=== PATIENT | male | born 1950 | race Caucasian/White ===

== ENCOUNTER 2024-04-28 17:02 | Inpatient (IN) | payer MEDICARE, SELFPAY ==
[2024-04-27] VITALS (10 sets, daily range): BP systolic 122–150; BP diastolic 71–88; BMI 40.4
--- NOTE | 2024-04-27 10:44 | ED.GENMED ---
History of Present Illness
General
Chief Complaint: Breathing Problem
Source: patient
Time Seen by Provider: 04/27/24 10:32
History of Present Illness
History of Present Illness:
73yoM with a history of hypertension, hyperlipidemia, ASUNCION, and obesity presenting with his for evaluation of shortness of breath. Patient has been having issues with shortness of breath for several years. Symptoms have been worsening over the
past 2 months. He reports significant exertional dyspnea to the point where he is unable to walk 50 yards without symptoms. He also reports bilateral shoulder pain with activity. The pain intermittently radiates throughout his chest. If he walks 100
yards, he will start vomiting due to the severity of his symptoms. He has several chairs placed throughout the home due to his symptoms so he can rest as needed. He follows with Dr. Lomax, cardiology. He reports having a stress test several years
ago which was normal. He called his PCP today and he was advised to go to the ED for evaluation.
Phy Exam
General Physical Exam
General Presentation: well appearing
General age: appears stated age
General Skin: warm and dry
General Habitus: normal
General Mental: alert
Cardiovascular Exam
Cardiovascular Exam: regular rate/rhythm and systolic murmur
Pulmonary Exam
Pulmonary Exam: lungs clear, no respiratory distress, no crackles and no wheezing
Musculoskeletal Exam
Musculoskeletal Exam: other (Non-pitting edema present to bilateral feet)
Skin Exam
Skin Exam: normal color and warm/dry
Psychiatric Exam
Psychiatric Exam: normal mood/affect
Scores
Heart Failure Risk
Heart Failure Risk Score: Not Applicable
Course
Orders/Labs/Results
Orders:
Orders
04/27/24 Breakfast
Sodium, 2 Gram
At Your Request: Limited Participation
Low Sodium: Cholesterol Lowering
04/27/24 10:14
Electrocardiogram (*1) Urgent
Reason for Study: Shortness of Breath
EKG- Treatment ONCE
04/27/24 10:43
Cardiac Monitoring- Treatment ONCE
04/27/24 10:44
CR Chest - 2 Views Urgent
Comment:
Reason For Exam: SOB
04/27/24 11:16
Complete Blood Count/With Diff Urgent
Comprehensive Metabolic Panel Urgent
NT-proBNP Urgent
TSH Reflex To Free T4 Urgent
Comment: ADD ON
Troponin I Urgent
04/27/24 15:52
Echo 2D MMode Color/Doppler Urgent
Reason for Study: chest pain, GROSS, mild
Cardiology Consult: Brennen Mccoy
04/27/24 15:53
Admit/Transfer Patient As Directed
Co-Sign Provider:
Level of Care: Observation services
Assign to:: Telemetry
Physician / Group: Cassius
Diagnosis: Shortness of Breath
Reason for Telemetry: Chest Pain syndromes
Date to Stop Telemetry: 04/29/24
Time to Stop Telemetry: 11:00
04/27/24 15:54
Code Status As Directed
Resuscitation Status: Full Code
PRN Pain Medication Management As Directed
May give lesser potent ordered pain med per pt: Yes
preference::
Protocol:: Medication orders for pain may be administered in a
manner that supports deferring to patient preference
when the pt is:
- Requesting an ordered lesser potent pain medication.
Least to most potent pain medications are defined
as: acetaminophen < NSAID < tramadol < opioids
(morphine, oxycodone, hydromorphone).
- Requesting a lesser dose of the same medication IF
ORDERED.
- Requesting a less intrusive route of administration
if both routes are prescribed by the provider (PO <
IV).
04/27/24 16:07
Add On- LAB Routine
Tests Added?: TSH w/Reflex
04/27/24 17:22
Acetaminophen [Tylenol] 650 mg PO Q4HPRN PRN
04/27/24 17:22
CARDIOLOGY CONSULT Routine
Consulting Provider: Brennen Mccoy
Was physician already notified: Yes
Activity As Directed
Activity Level: Out of Bed-Early Mobility
With Assistance
I&O [Intake/ Output] As Directed
Frequency: q12h
Vital Signs As Directed
Frequency: Per unit guidelines
Weight As Directed
Frequency: Daily
Pulse Ox/exercise [RESP] Routine
Quantity: 1
Pt Eval And Treat Routine
Activity Level: Out of Bed-Early Mobility
DX Deep Vein Thrombosis Video Routine
04/27/24 18:00
Enoxaparin Sodium [Lovenox] 40 mg SC QPM
04/28/24 Breakfast
NPO
Allow oral meds: Yes
Allow clear liquids: 4hrs prior to procedure
NPO with Ice Chips: Yes
Comment: may have unrestricted clear liquid up to 4 hrs prior to scheduled procedure
04/29/24 11:00
DC Protocol for Telemetry ONCE
Abnormal Lab Results
04/27/24
11:16
MCH 31.2 H pg
(27.0-31.0)
Absolute Monos (auto) 0.7 H 10^3/uL
(0.1-0.6)
Monocytes % 10.2 H %
(1.7-9.3)
Glucose 111 H mg/dl
(70-99)
04/27/24 11:16
04/27/24 11:16
Vital Signs
Initial and Last Documented VS:
Initial Vital Signs
Temp Pulse Resp BP Pulse Ox
99.0 F 76 16 147/71 98
04/27/24 10:22 04/27/24 10:22 04/27/24 10:22 04/27/24 10:22 04/27/24 10:22
Last Documented Vital Signs
Temp Pulse Resp BP Pulse Ox
99.0 F 56 27 138/83 97
04/27/24 10:22 04/27/24 15:45 04/27/24 10:45 04/27/24 15:00 04/27/24 15:45
MDM/Problems Addressed
Differential Diagnosis Includes:
73yoM here with exertional dyspnea. Ongoing for quite some time. Unable to walk around his home without significant symptoms. No symptoms at rest. He is afebrile and hemodynamically stable. He is well appearing in no distress. There is non-pitting
edema to his lower leg/feet on exam. Differential diagnosis includes but is not limited to: stable angina, unstable angina, CHF
Initial ED plan: Place on monitoring engineer. Check cardiac labs, EKG, and CXR.
*EKG
Interpreted by ED Provider?: Yes
EKG Intrepretation Date: 04/27/24
Heart Rate: 71
Rate: normal
Rhythm: sinus
Sutton: left axis deviation
QRS Pattern: right bundle branch block
Ischemia: no ischemia
*Critical Care Note
Total Time (30-74mins, 75-104mins- exclusive of procedures): Not Applicable
Update Note
Update Note:
Labs overall unremarkable. EKG shows NSR without ischemic changes and troponin WNL. CXR is clear. Cardiology consulted and he was evaluated at bedside by cardiology team. Plan for cardiac catheterization tomorrow. He was admitted for further
evaluation.
ED Attending Note
-
Portions of this chart may have been created with voice recognition software.� Occasional wrong word or��sound alike� substitutions may have occurred due to the inherent limitations of voice recognition software.
Discharge Plan
Departure
Patient Disposition: Admit
Date of Disposition: 04/27/24
Time of Disposition: 15:35
Presentation/result/management discussed w/ accepting MD/DO: Hospitalist
Discharge Problem:
Exertional dyspnea
Interventions
Interventions:
*Risk Screen - Suicide Last Done: 04/27/24 11:04
*General Assessment Last Done: 04/27/24 11:04
*Neglect/Abuse Screening Last Done: 04/27/24 11:04
ED- Fall Risk Assessment Last Done: 04/27/24 11:04
*ED COVID-19 Vaccine History Last Done: 04/27/24 11:04
ED- Cardiac Assessment Last Done: 04/27/24 11:04
ED- Pulmonary Assessment Last Done: 04/27/24 11:04
Discharge Date and Time
Discharge Date/Time: 04/27/24 17:15
[2024-04-27 11:29] LABS: % Basophils 0.9 % (0-2); % Immature Granulocytes 0.3 % (0-0.5); % Lymphocytes 30.7 % (20.5-51.1); % Monocytes 10.2 % (1.7-9.3); % Neutrophils 55.9 % (42.2-75.2); Absolute Basophils 0.1 10^3/uL (0-0.2); Absolute Eosinophils 0.1 10^3/uL (0-0.7); Absolute Monocytes 0.7 10^3/uL (0.1-0.6); Absolute Neutrophils 3.6 10^3/uL (1.4-6.5); Hematocrit 43.3 % (39.0-52.0); Mean Corp Hgb Conc. 34.6 g/dL (33.0-37.0); Mean Corpuscular Hgb 31.2 pg (27.0-31.0); Mean Platelet Volume 10.3 fL (7.4-10.4); Nucleated Red Blood Cells % 0 % (-); Platelet Count 213 10^3/uL (130-400); Red Blood Cell Count 4.81 10^6/uL (4.70-6.10); Red Cell Dist. Width 13.3 % (11.5-14.5); White Blood Cell Count 6.4 10^3/uL (4.8-10.8)
[2024-04-27 11:50] LABS: ALT (SGPT) 27 U/L (0-50); AST (SGOT) 31 U/L (17-59); Albumin 4.2 g/dl (3.5-5.0); Alkaline Phosphatase 47 U/L (38-126); Blood Urea Nitrogen 14 mg/dl (9-20); Calcium 9.4 mg/dl (8.4-10.2); Carbon Dioxide 28 mmol/L (22-30); Chloride 103 mmol/L (98-107); Estimated Creatinine Clearance 112 ml/min; Glucose 111 mg/dl (70-99); Potassium 4.8 mmol/L (3.5-5.1); Sodium 139 mmol/L (135-145); Total Bilirubin 0.8 mg/dl (0.2-1.3); Total Protein 6.9 g/dl (6.3-8.2); eGFR > 60.00
[2024-04-27 11:53] LABS: NT-proBNP 75.6 pg/ml; Troponin I < 0.012 ng/ml
--- NOTE | 2024-04-27 14:51 | CON.CAR ---
Addendum entered and electronically signed by Brennen Mccoy MD 04/27/24 16:25:
I saw and examined the patient.
The MEDICAID BILLING SPECIALIST or PA's note was reviewed and I agree with the note.
Comment: General: Well developed, well nourished in NAD.
Neck: Supple, no JVD, HJR, carotids +2 B/L, no bruits bilaterally.
Heart: Non displaced PMI, RRR, no murmurs, No S3, S4, no rubs.
Lungs: Clear to auscultation bilaterally, no wheeze, rhonchi, rubs bilaterally,
normal expiratory phase.
Abdomen: Normal bowel sounds, soft, non-tender, non-distended.
Extremities: No clubbing, cyanosis or edema bilaterally.
Neuro: Grossly nonfocal, awake, alert and oriented x3
Naveen has a history of hypercholesterolemia, mild aortic stenosis, morbid obesity, chronic dyspnea on exertion. He has been seen by cardiology with normal stress test and echocardiogram in September 2022. He has been seen by pulmonary and
recommended to see cardiology. He has had progressive dyspnea on exertion. He also has had discomfort under his armpits on both sides related to shortness of breath. He has had progressive symptoms and presented to emergency room for further
evaluation.
Concern regarding possible unstable angina with worsening dyspnea on exertion and discomfort under both armpits. He also had severe nausea during one of the episodes. Recommend he be admitted and undergo catheterization on 04/28 if echocardiogram
is unchanged. Of note proBNP was normal. He remains obese but his weight has been stable..
Original Note:
Consultation
Consultation Request
Date/Time Consultation Requested: 04/27/24
Date/Time Consultation Performed: 04/27/24
Requesting Provider: Rashawn DICK in ER
Performing Provider: Dr. Mccoy
Reason for Consultation: Chest pain and GROSS
Medical History
-
History of Present Illness:
Patient came to [facility] today with chest pain and GROSS and cardiology has been consulted. Patient last saw Dr. Lomax in the office 12/07/22 and complained of chest pain and GROSS, but had previously completed a Lexiscan mibi 09/17/22 that showed a small area
of mildly decreased perfusion that was fixed in the mid inferior and apical inferior and partially improved with prone imaging. When patient complained of recurrent symptoms at the 12/07/22 office visit he was recommended PCSK9 inhibitor for untreated
hyperlipidemia and a coronary calcium score, but he declined and did not come back to the office. Patient says that since the beginning of the summer he has had a rapid deterioration in his activity levels due to exertional intolerance. He describes
chest pain from shoulder to shoulder and GROSS when he walks more than 10 yards. He says that if he tries to complete too much activity that he vomits. No resting chest pain or GROSS. No substernal pain and no radiation to his neck or jaw. He has
experience similar symptoms for more than 1 year, but happening at lower levels of activity now. Patient with chronic LE edema that has been present for months. He says edema is there even in the morning when he wakes up. He also complains of
bloating and at one point had lost 10 lbs, but then gained the weight back quickly and has not gained any additional weight. He says that despite this he thinks his pants are looser at the waist than before. He has HTN that is managed by Nephrology
using Cardura, eplerenone and losartan. His resting BP is 150/88 in the ER and he has similar readings at home. He also has a h/o mild by last echo almost 2 years ago. Patient says that he has described his symptoms to family members who are
physicians and also to friends and they all feel that he has CAD and that he needs a stent so this is the reason he came to [facility] today and not months ago.
PMH:
HTN
Untreated hyperlipidemia due to statin intolerance and patient refusal of PCSK9 inhibitor meds
Mild by echo 06/2022
Morbid obese
Past Medical History
Past Medical History: Other (in HPI)
Past Surgical History: None
Social History
Tobacco: Former Smoker
Alcohol: None
Drug: None
Personal:
Living: With Family
Employment: Retired
Family History
Family History: CAD and Hypertension
Allergies / Home Medications
Allergy/AdvReac Type Severity Reaction Status Date / Time
.statins Allergy Unknown Uncoded 04/27/24 10:25
Review of Systems
-
History Source: Patient and Family ( sitting bedside and helping with HPI)
All other systems: Negative unless noted
Physical Exam
Vital Signs
Temp Pulse Resp BP Pulse Ox
99.0 F 57 27 137/74 95
04/27/24 10:22 04/27/24 14:15 04/27/24 10:45 04/27/24 14:00 04/27/24 14:15
GEN: NAD. AAOx3
HEENT: EOMI, MMM
LUNGS: CTA B/L without wheezes/rales
CV: Reg, S1/S2, 2/6 syst LSB
ABD: soft, BS+, NT. Distended
EXT: +1 pitting B/L LE edema. No clubbing, cyanosis or lesions B/L
NEURO: Gross non-focal
SKIN: Warm, dry and pink. No rash
Lab Results
04/27/24 11:16
04/27/24 11:16
Troponin I < 0.012 ng/ml 04/27/24 11:16
Gae-Y-Jihwwiadgey Pept 75.6 pg/ml 04/27/24 11:16
Impression / Plan
-
PCP: Dr. Guy
Cardiology: Dr. CARLITO Lomax, last seen 12/2022
Nephrology: Dr. Lees
Impression:
Chest pain
GROSS
HTN
Untreated hyperlipidemia due to statin intolerance and patient refusal of PCSK9 inhibitor meds
Mild by echo 06/2022
Morbid obese
Echo 06/22/22: EF 70-75%, mild conc LVH, mild peak/mean 20/10 mmHg and NICKY 2.0 cm sq
Plan:
-Patient came to [facility] today with chest pain and GROSS and cardiology has been consulted. Patient last saw Dr. Lomax in the office 12/07/22 and complained of chest pain and GROSS, but had previously completed a Lexiscan mibi 09/17/22 that showed a small
area of mildly decreased perfusion that was fixed in the mid inferior and apical inferior and partially improved with prone imaging. When patient complained of recurrent symptoms at the 12/07/22 office visit he was recommended PCSK9 inhibitor for
untreated hyperlipidemia and a coronary calcium score, but he declined and did not come back to the office. Patient says that since the beginning of the summer he has had a rapid deterioration in his activity levels due to exertional intolerance. He
describes chest pain from shoulder to shoulder and GROSS when he walks more than 10 yards. He says that if he tries to complete too much activity that he vomits. No resting chest pain or GROSS. No substernal pain and no radiation to his neck or jaw. He
has experience similar symptoms for more than 1 year, but happening at lower levels of activity now. Patient with chronic LE edema that has been present for months. He says edema is there even in the morning when he wakes up. He also complains of
bloating and at one point had lost 10 lbs, but then gained the weight back quickly and has not gained any additional weight. He says that despite this he thinks his pants are looser at the waist than before. He has HTN that is managed by Nephrology
using Cardura, eplerenone and losartan. His resting BP is 150/88 in the ER and he has similar readings at home. He also has a h/o mild by last echo almost 2 years ago. Patient says that he has described his symptoms to family members who are
physicians and also to friends and they all feel that he has CAD and that he needs a stent so this is the reason he came to [facility] today and not months ago.
-Despite months of exertional chest pain his ECG is unchanged and Troponin is undetectable.
-ECG reviewed by me with cRBBB and no acute ischemic changes.
-Check 2nd Troponin and ECG
-Check echo to re-evaluate .
-Given ongoing exertional chest pain and GROSS would recommend cardiac cath. Reviewed cardiac cath with patient and possible outcomes.
-Follow BP and patient might need titration of meds for tighter control.
-Check CVE in AM. Patient is intolerant to Fenofibrate due to joint pain, atorvastatin caused him to have joint pain and feel sluggish, simvastatin caused joint pain and fatigue. Patient refused to consider PCSK9 inhibitors before, but might
reconsider pending above.
--- NOTE | 2024-04-27 15:47 | HPS.HSE ---
Addendum entered and electronically signed by Malik Hammonds MD 04/28/24 08:28:
I saw and examined the patient.
The BATTERY INSPECTOR's note was reviewed and I agree with the note.
Comment:
late addendum. Pt was seen and examined on 04/27/24. Please see update note.
Original Note:
Family Physician
-
Family Physician: Dena Guy
Chief Complaint
-
Shortness of Breath
History of Present Illness
Pt is a 73 yo M with PMH HTN, HLD, asthma, ASUNCION, and obesity who presents with worsening shortness of breath. Pt states he has had ongoing shortness of breath for years which has worsened this summer (in the past 2-12 months) to the point where he
can no longer walk more than 30 yards. Pt admits to exertional dyspnea accompanied by bilateral armpit and chest pain that is relieved with rest. He states is fully dependent on cane assistance for ambulation and has chairs scattered throughout his
yard so he can rest. His reports significantly decreased activity. He also admits to increasing lethargy with a need to sleep multiple times throughout the day and unknown amount of weight gain. He denies fever, headache, dizziness, vision changes,
palpitations, cough, and abdominal pain. He denies history of AL, arrhythmias, and DVT/PE.
Medical History
Past Medical History
Past Medical History: Reports Other
Additional Past Medical History:
Essential Hypertension
Hyperlipidemia
Cough Variant Asthma
Obstructive Sleep Apnea
Morbid Obesity due to Excess Calories
Past Surgical History: Reports None
Social History
Tobacco: Former Smoker (Quit at age 20)
Alcohol: Daily (Wine most nights)
Family History
Family History: Not pertinent
Allergies / Home Medications
Allergies reflects when Allergies were last updated in [employer].
Home Medications with original date entered in [employer]
Allergy/Medication List:
Allergies
Allergy/AdvReac Type Severity Reaction Status Date / Time
.statins Allergy Unknown Uncoded 04/27/24 10:25
Home Medications
ascorbic acid (vitamin C) 500 mg tablet (Vitamin C) 500 mg PO DAILY 04/27/24
aspirin 325 mg tablet 325 mg PO DAILY 04/27/24
bimatoprost 0.01 % eye drops (Lumigan) 1 drp BOTH EYES HS 04/27/24
cholecalciferol (vitamin D3) 50 mcg (2,000 unit) tablet (Vitamin D3) 100 mcg PO DAILY 04/27/24
cyanocobalamin (vitamin B-12) 500 mcg tablet 500 mcg PO DAILY 04/27/24
doxazosin 4 mg tablet 4 mg PO HS 04/27/24
eplerenone 25 mg tablet 75 mg PO HS 04/27/24
ezetimibe 10 mg tablet 10 mg PO DAILY 04/27/24
fluticasone furoate 200 mcg-vilanterol 25 mcg/dose inhalation powder (Breo Ellipta) 1 inh inhalation R DAILY 04/27/24
loratadine 10 mg tablet (Claritin) 10 mg PO HS 04/27/24
losartan 25 mg tablet 25 mg PO HS 04/27/24
montelukast 10 mg tablet 10 mg PO HS 04/27/24
ljhqyiaw-zpq-adsbd acid 0.4 mg-lycopene 300 mcg-lutein 250 mcg tablet (Centrum Silver) 1 tab PO DAILY 04/27/24
saw palmetto 450 mg capsule 900 mg PO DAILY 04/27/24
vitamin B complex 1 tab PO DAILY 04/27/24
zinc sulfate 50 mg zinc (220 mg) tablet 50 mg PO DAILY 04/27/24
Review of Systems
-
A 12 point ROS was completed and negative except as noted: Yes
Constitutional: Denies Fever or Chills
Respiratory: Reports See HPI and Cough
Cardiac: Reports See HPI
Physical Exam
Vital Signs
Vital Signs
Temp Pulse Resp BP Pulse Ox
99.0 F 58 27 138/83 96
04/27/24 10:22 04/27/24 15:15 04/27/24 10:45 04/27/24 15:00 04/27/24 15:15
Physical Exam
General: Comfortable and Conversant
HEENT: Anicteric and Moist mucous membranes
Respiratory: Clear and Non Labored Respirations
Cardiac: S1/S2 and Regular Rhythm
GI: Soft and Non Tender
Rectal: Deferred by Provider
Musculoskeletal: No Clubbing, No Cyanosis and Other (+1 pitting edema bilateral lower extremity)
Skin: Warm and Dry
Neuro: Awake, Alert, Oriented and Nonfocal/grossly intact
Psych: Calm
Laboratory Results
-
04/27/24 11:16
04/27/24 11:16
Laboratory Results
Total Bilirubin 0.8 mg/dl (0.2-1.3) 04/27/24 11:16
AST 31 U/L (17-59) 04/27/24 11:16
ALT 27 U/L (0-50) 04/27/24 11:16
Alkaline Phosphatase 47 U/L (38-126) 04/27/24 11:16
Troponin I < 0.012 ng/ml 04/27/24 11:16
Data Reviewed
-
Medical Tests (Nuc Med, Echo, EKG etc): Report Reviewed by me
Lab Data: Labs Reviewed by me
Impression/Plan
-
Dyspnea on Exertion, possible Angina
-Consult Cardiology
-Check Echocardiogram
-Plan for Cardiac Cath in AM
-Continue aspirin
Essential Hypertension
-Continue Losartan, Doxazosin, and Eplerenone
Hyperlipidemia
-Patient is intolerant to statins
-Continue ezetimibe
Cough Variant Asthma, no acute exacerbation
-Continue Breo
Obstructive Sleep Apnea
-Patient does not use a CPAP
Morbid Obesity due to Excess Calories
-Affects all aspects of care
-Encourage weight loss
DVT proph: Mikex
Code Status: Full Code
--- NOTE | 2024-04-27 16:28 | W.PN.UPDATE ---
Update Note
Progress Note Update
I saw and examined the patient.
The FRONT OFFICE JAVA DEVELOPER's note was reviewed and I agree with the note.
Please see H&P for additional details.
Comment:
73-year-old male past medical history of primary hypertension is presenting from home with chest pain on exertion. States his chest pain has been ongoing for quite some period of time. Patient follows up with cardiology as outpatient. Called his
primary doctor who recommended patient come to the hospital. States of chest pain with exertion only. Has been ongoing and got concerned. Denies any chest pain at rest. Had episode of nausea. Chest pain resolved with rest.
Gen: morbidly obese, comfortable
hent neck is supple,
cards s1 s2 rrr. pito
pulm cta bl anterior
abd soft non distended
neuro aox 3
psych pleasant
Impression
Ivana with concern for severe coronary artery disease
Primary hypertension
Morbid obesity due to excess calories
Suspected hyperlipidemia
asthma
Plan
Check echocardiogram-about to undergo at bedside
Plan for cardiac cath in the morning. N.p.o. past midnight.
Continue and confirm home meds
Trend troponin.
DVT ppx
I spent a total of 77 minutes with the patient or on the floor. More than 50% of this time involved counseling and coordination of care.
[2024-04-27 17:21] LABS: TSH Reflex To Free T4 1.04 uIU/ml (0.47-4.68)
[2024-04-27] MEDS: LOVENOX 40 MG SC (17:48)
--- NOTE | 2024-04-27 20:44 | PTCARENOTE ---
Received pt from day shift RN. Pt AAOx3, VSS. Pt ambulating in room to and from bathroom, denying any chest pain. Updated patient and on plan of care.
[2024-04-28] VITALS (16 sets, daily range): BP systolic 123–158; BP diastolic 67–105; BMI 39.0
[2024-04-28 09:24] LABS: Troponin I 0.028 ng/ml
[2024-04-28 09:48] LABS: D-Dimer 0.75 ug/mlFEU (0.00-0.50)
[2024-04-28 10:04] LABS: Blood Urea Nitrogen 13 mg/dl (9-20); Calcium 9.5 mg/dl (8.4-10.2); Carbon Dioxide 30 mmol/L (22-30); Chloride 102 mmol/L (98-107); Estimated Creatinine Clearance 110 ml/min; Glucose 93 mg/dl (70-99); HDL Cholesterol 41 mg/dl; LDL Cholesterol, Calculated 159 mg/dl; Potassium 4.5 mmol/L (3.5-5.1); Sodium 140 mmol/L (135-145); Total Cholesterol 250 mg/dl (50-199); Triglyceride 252 mg/dl (10-149); Very Low Density Lipoprotein 50 mg/dl (0-30); eGFR > 60.00
[2024-04-28 11:54] LABS: ACT-LR - POC 224 Seconds (116-155)
--- NOTE | 2024-04-28 12:06 | W.PN.HOSP.TC ---
Today's Communication/Plan
-
Cardiac cath
Cardiology rec
Continue with aspirin
Monitor blood pressure
Assessment / Plan
Assessment / Plan
Dyspnea on Exertion likely secondary to angina rule out significant CAD
-Consult Cardiology
-Echo with EF of 65 to 70%. Moderate LVH. Mild aortic stenosis. No significant change when compared to 06/23 echo.
-Continue aspirin
-Plan for tentative cardiac cath later today.
-D-dimer age-appropriate.
Essential Hypertension
-Continue Losartan, Doxazosin, and Eplerenone
Hyperlipidemia
-Patient is intolerant to statins
-Continue ezetimibe. Significantly elevated triglycerides and LDL.
Cough Variant Asthma, no acute exacerbation
-Continue Breo
Obstructive Sleep Apnea
-Patient does not use a CPAP
Morbid Obesity due to Excess Calories
-Affects all aspects of care
-Encourage weight loss
DVT proph: Lovenox
Code Status: Full Code
Anticipated Discharge: Within 24 hours
Subjective/Interval History
-
Date of Service: April 28, 2024
denies chest pain at rest
Objective Data
-
Labs:
Laboratory Results
04/28/24
07:51
Sodium 140
Potassium 4.5
Chloride 102
Carbon Dioxide 30
BUN 13
Creatinine 0.8
Glucose 93
Calcium 9.5
Vital Signs:
Vital Signs
Temp Pulse Resp BP Pulse Ox
98.1 F 60 18 123/78 96
04/28/24 07:00 04/28/24 07:00 04/28/24 07:00 04/28/24 07:00 04/28/24 07:00
I&O
04/27/24 04/28/24 04/29/24
06:59 06:59 06:59
Intake Total 1250 / 1250
Balance 1250 / 1250
Physical Exam
-
General: Well Developed and Morbidly Obese
HEENT: Normocephalic, Atraumatic and Moist Mucous Membranes
Respiratory: Clear to Auscultation
Cardiac: Regular Rhythm and S1/S2; Negative Murmur, Rub or Gallop
GI: Soft, Nontender, Nondistended and Normal Bowel Sounds; Negative Organomegaly
Rectal: Deferred by Provider
Musculoskeletal: No Clubbing, No Cyanosis and No Edema
Skin: Negative Rash
Neuro: Awake, AO x 3, No Motor Deficits and Nonfocal/Grossly Intact
[2024-04-28] MEDS: ZETIA PO (12:45)
--- NOTE | 2024-04-28 13:03 | ITS.CL.CATH ---
[employer] - Catheterization
Cardiac Catheterization
Procedure Report:
LEFT HEART CATHETERIZATION
Date of Procedure: April 28, 2024
Referring: Dr. Brennen Mccoy
PROCEDURES:
1. Left heart catheterization with coronary and single-plane left ventriculography
2. Hemodynamic assessment of LAD and diagonal with Purlear Omni wire with the iFR measuring just below the ischemic threshold at 0.87, 0.89, 0.89
INDICATION: This is a 73-year-old gentleman with a past medical history notable for untreated mixed hyperlipidemia secondary to intolerance to 'all statin drugs' and desire to avoid PCSK9 inhibitor injections. Additional history includes mild
aortic stenosis, morbid obesity, and chronic dyspnea on exertion. He was last seen by cardiology with a unremarkable stress test in September 2022. His dyspnea on exertion has worsened and he developed chest tightness with shortness of breath and
severe nausea. His troponin measures 0.012 and 0.028 ng/mL. He is now referred for coronary angiography.
ACCESS: Right radial artery, 6 Mauritanian sheath
HEMODYNAMICS : (mmHg)
AO (s/d) : 135/81
LV (s/d) : 136/18
LVEDP : 28
CORONARY FINDINGS
DOMINANCE: Right
LEFT MAIN: Tubular 30%
LEFT ANTERIOR DESCENDING: The LAD arises normally from the left main and is moderately calcified over its course. There is a 40% proximal LAD stenosis. The first diagonal branch arises from the proximal LAD and has diffuse but noncritical luminal
irregularities with the IFR in a diagonal branch measuring above the ischemic threshold at 0.94, 0.94, and 0.94. The mid LAD beyond the diagonal branch has serial 30% stenoses. The IFR in the LAD measures at/below the ischemic threshold at 0.87,
0.89, and 0.89.
CIRCUMFLEX: Ostial 99% circumflex stenosis with faint antegrade flow. There are well-developed right to left collaterals filling the terminal circumflex.
RIGHT CORONARY ARTERY: The right coronary artery is a moderately calcified dominant vessel with a 50% distal stenosis. The PDA is patent and the posterolateral branch is small.
VENTRICULOGRAPHY: Left ventriculography is performed in an LUCAS projection. The digital single-plane left ventricular ejection fraction is estimated at 60% and no regional wall motion abnormalities are noted
HEMODYNAMIC ASSESSMENT OF THE LAD AND DIAGONAL WITH A VOLCANO OMNI WIRE: The origin of the left main was cannulated with a 6 Fr JL 4 guide catheter. Intravenous heparin was administered and the ACT was followed during the procedure. Two hundred
micrograms of intracoronary nitroglycerin was given through the guide catheter. A Purlear Omni wire was advanced to the guide catheter tip while the guide was disengaged from the left main. The Omni wire was normalized to the guide catheter
pressure. The JL 4 guide catheter engaged the origin of the left main and the Omni wire was then carefully advanced to the apical LAD where the IFR serially measured at/below the ischemic threshold at 0.87, 0.89, and 0.89. The Omni wire was
withdrawn to the guide catheter and redirected to the diagonal branch where the IFR serially measured above the ischemic threshold at 0.94, 0.94, and 0.94 while the guide catheter was disengaged from the left main. The Pd/Pa measured 1.01 at the
guide catheter confirming no significant baseline drift
RADIATION SUMMARY: Fluoro Time (min): 6.9, Dose (mGy): 635, DAP (Gy.cm2) : 44.4
Closure Device: TR band
CONCLUSIONS
1. Chronic occlusion of the distal circumflex with distal vessel filling via well-developed right to left collaterals. Ostial circumflex stenosis is not favorable for percutaneous intervention. The LAD has moderate diffuse atherosclerosis but the
iFR measures just at/below the ischemic threshold at 0.87, 0.89, and 0.89.
2. Preserved left ventricular systolic function
RECOMMENDATIONS
1. Will consult CT surgery to discuss revascularization treatment options. Percutaneous treatment options are somewhat limited given the true ostial nature of stenosis at the origin of the circumflex and well developed egljo-yt-ddov collaterals to
the distal circumflex from the RCA. There is diffuse atherosclerosis in the LAD with the iFR measuring just below the ischemic threshold and angiographically moderate coronary disease in the distal RCA.
Copy to: Dr. Naveen Lomax
--- NOTE | 2024-04-28 14:10 | CONSULT.CT ---
Addendum entered and electronically signed by Kenney Martinez MD 04/28/24 17:02:
CARDIAC SURGERY OPERATIVE NOTE:
It was my pleasure to meet with Mr. Naveen Villeda at bedside this afternoon. His and daughter were present during our discussions. I reviewed all of his pertinent clinical data and cardiac catheterization imaging as well as his medical history.
I would recommend surgical coronary revascularization with planned CABG x 3 with ENRIQUEZ to LAD, greater saphenous vein to OM, and greater saphenous vein to PDA. He has concurrent mild aortic stenosis with peak/mean gradients of 16/10 mmHg
respectively. His aortic valve does not require intervention at the time of his CABG procedure, but will require sequential monitoring. I had a greater than 60-minute discussion with this patient and his family we reviewed his coronary pathology,
the proposed operative mentions, the associated operative risks (including, but not limited to, , stroke, OK, arrhythmia, pneumonia, LEILA/F, bleeding, and infection), the expected hospital postprocedural course, and expected outpatient recovery.
All questions were answered to the best my abilities. The patient is agreeable to proceed.
Plan to proceed to the operating room tomorrow with a plan in the room time of 8:30 AM
Please call with any questions or concerns.
Kenney Martinez MD
[phone]
Original Note:
Consultation
-
Date/Time Consultation Requested: 04/28/2024
Date/Time Consultation Performed: 04/28/2024
Requesting Provider: Dr Mccoy
Performing Provider: Spenser chapa
Reason for Consultation: CABG
Patient History
Physicians
Outpatient Systems Technologist: Dr. CARLITO Lomax
History of Present Illness
Patient is a 73-year-old male with past medical history of hypertension, hyperlipidemia, asthma, obstructive sleep apnea and obesity. Patient reports ongoing shortness of breath which has worsened this past summer. He now can no longer walk more
than 30 yards. He admits to exertional dyspnea accompanied by bilateral armpit and chest pain that is relieved with rest. His activity level is now significantly decreased. He also admits to weight gain along with the need to sleep multiple times
during the day because of lethargy. He also admits to bilateral ankle swelling. He presented to [facility] ED for evaluation. Echocardiogram shows left ventricle with ejection fraction of 65 to 70%. There was mild aortic stenosis with
peak and mean gradients of 16 and 10. Trace mitral regurgitation.
Cardiac catheterization was performed today 04/28/2024 which showed critical coronary artery disease. Cardiothoracic surgery was consulted for CABG evaluation.
Plan to order diagnostic testing and all studies will be reviewed by attending cardiothoracic surgeon. Surgical plan and timing will be discussed with patient tomorrow.
Past Medical History
Past medical history: Unstable angina
Hypertension
Hyperlipidemia-patient cannot tolerate statins
Obstructive sleep apnea-patient does not use CPAP
Obesity-patient has had a recent weight gain
Past Surgical History
Past surgical history: Closed reduction of ankle fracture
Dental History
Denies any current dental issues, receives routine dental care
Family History
Mother: at Age and Cause of (Mother at age 73 after suffering a stroke at age 66 also had hypertension)
Father: at Age and Cause of (Father had Parkinson's he from sepsis after receiving a hip replacement)
Family Medical History: Hypertension
Social History
Alcohol: Daily (Drinks beer or wine daily)
Drug: None
Tobacco: Former Smoker (Quit smoking at 20 years of age)
Personal:
Living: With Spouse
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
Allergies
Allergy/AdvReac Type Severity Reaction Status Date / Time
Dymnkja-ANF-SsB Reductase Allergy Unknown Verified 04/27/24 18:09
Inhibitor
Home Medications
�Medication �Instructions �Recorded �Confirmed �Type
ascorbic acid (vitamin C) 500 mg 500 mg PO DAILY Supplement 04/27/24 04/27/24 History
tablet (Vitamin C)
aspirin 325 mg tablet 325 mg PO DAILY Blood Clot 04/27/24 04/27/24 History
Prevention/Tx
bimatoprost 0.01 % eye drops 1 drp BOTH EYES HS Eye Condition 04/27/24 04/27/24 History
(Lumigan)
cholecalciferol (vitamin D3) 50 100 mcg PO DAILY Supplement 04/27/24 04/27/24 History
mcg (2,000 unit) tablet (Vitamin
D3)
cyanocobalamin (vitamin B-12) 500 500 mcg PO DAILY Supplement 04/27/24 04/27/24 History
mcg tablet
doxazosin 4 mg tablet 4 mg PO HS Urinary Issue 04/27/24 04/27/24 History
eplerenone 25 mg tablet 75 mg PO HS Lung/Breathing Issues 04/27/24 04/27/24 History
ezetimibe 10 mg tablet 10 mg PO DAILY High Cholesterol 04/27/24 04/27/24 History
fluticasone furoate 200 1 inh inhalation R DAILY Congestion 04/27/24 04/27/24 History
mcg-vilanterol 25 mcg/dose
inhalation powder (Breo Ellipta)
loratadine 10 mg tablet (Claritin) 10 mg PO HS Allergies 04/27/24 04/27/24 History
losartan 25 mg tablet 25 mg PO HS Blood Pressure 04/27/24 04/27/24 History
montelukast 10 mg tablet 10 mg PO HS ASTHMA 04/27/24 04/27/24 History
ljdjuvxr-adt-zdgsh acid 0.4 1 tab PO DAILY Supplement 04/27/24 04/27/24 History
mg-lycopene 300 mcg-lutein 250 mcg
tablet (Centrum Silver)
saw palmetto 450 mg capsule 900 mg PO DAILY Supplement 04/27/24 04/27/24 History
vitamin B complex 1 tab PO DAILY Supplement 04/27/24 04/27/24 History
zinc sulfate 50 mg zinc (220 mg) 50 mg PO DAILY Supplement 04/27/24 04/27/24 History
tablet
Review of Systems
-
History Source: Patient and Family
General: Reports Weight Gain and Fatigue
HEENT: Reports No Symptoms
Respiratory: Reports SOB, GROSS and Asthma
Cardiac: Reports Chest Pain, CAD, Vomiting and Edema
Abdomen/GI: Reports No Symptoms
: Reports No Symptoms
Musculoskeletal: Reports No Symptoms and Edema
Skin: Reports No Symptoms
Neurological: Reports No Symptoms
Vascular: Reports No Symptoms
Physical Exam
Vital Signs
Temp 98.1 F 04/28/24 13:45
Temp route: Oral 04/28/24 13:45
Pulse 54 04/28/24 13:45
Rhythm: Normal sinus rhythm 04/28/24 08:45
With- Bundle Branch Block Confi 04/27/24 19:15
Resp Rate 20 04/28/24 13:45
Blood pressure 137/78 04/28/24 13:45
Blood pressure extremity used: Left upper arm 04/28/24 13:45
Position: Lying 04/28/24 13:45
MAP (cuff-Jerson Monitor) 99 04/27/24 15:00
SaO2 94 04/28/24 13:45
Oxygen Mode of Delivery Room air 04/28/24 13:45
Can the patient verbally communicate their pain? Yes 04/28/24 08:45
Actual Weight 279 lb 8 oz 04/28/24 06:00
Body Mass Index (BMI) 39.0 04/28/24 06:00
Labs
04/27/24 11:16
04/28/24 07:51
Troponin I 0.028 ng/ml 04/28/24 07:51
Ylk-B-Pohnkciqomu Pept 75.6 pg/ml 04/27/24 11:16
Exam
General: Well Developed, Well Nourished, No Apparent Distress, Comfortable and Good Appetite
HEENT: Normocephalic, Anicteric and Atraumatic
Neck: Trachea Midline
Respiratory: Clear
Cardiac: Regular Rhythm
GI: Soft, Non Tender, Non Distended and Normal Bowel Sounds
Rectal: Deferred by Provider
Skin: Warm and Dry
Neuro: Awake, Alert, Oriented and AO x 3
Extremities: Lower Level Edema and Pulses (Bilateral feet cool dry, dorsalis pedis pulse 1-2+ bilaterally, posterior tibial pulse +1 bilaterally)
Lymph: No Lymphadenopathy
Psych: Calm
Assessment / Plan
-
Assessment: CAD now with worsening exertional angina, status post cardiac catheterization with multivessel coronary artery disease.
Hypertension
Hyperlipidemia
Obstructive sleep apnea
Morbid obesity
Plan:
Diagnostic studies ordered, all results will be reviewed by attending cardiothoracic surgeons and will discuss surgical plan and timing with patient.
CAD-continue to optimize medical therapy
[2024-04-28] MEDS: NSS 1000 IV (14:12)
[2024-04-28 14:38] LABS: INR 1.05; PT 13.5 Sec (11.4-14.6)
[2024-04-28 14:40] LABS: APTT 116.1 Sec (23.4-35.0)
--- NOTE | 2024-04-28 15:16 | CM ---
Patient seen bedside with , initial assessment completed. Patient resides with his in a multiple story home, bedroom on second floor, two steps to enter. Patient has a cane at home, denies other DME. Patient denies VN or SNF history.
Patient confirms PCP Dena Guy, [facility], confirms prescription coverage. Patient denies food, housing/utility, transportation insecurities at home. CROWDER form reviewed, refused to sign, placed in chart. Patient reports he
will likely be in the Hospital for a few more days. CM will continue to follow for all discharge planning needs.
Plan; home no needs, watch for PT recommendations for VN needs.
--- NOTE | 2024-04-28 16:57 | W.PN.UPDATE ---
Update Note
Progress Note Update
Note: Carotid Ultrasound in process, assuming no significant carotid disease, STS risk stratification score is as follows:
Procedure Type:�Isolated CABG
PERIOPERATIVE OUTCOME ESTIMATE %
Operative Mortality 1%
Morbidity & Mortality 5.56%
Stroke 0.52%
Renal Failure 0.776%
Reoperation 1.92%
Prolonged Ventilation 3.12%
Deep Sternal Wound Infection 0.209%
Long Hospital Stay (>14 days) 2.83%
Short Hospital Stay (<6 days)* 50.3%
Clinical Summary
Planned Surgery: Isolated CABG, Urgent, First cardiovascular surgery
Demographics: 73 year old, White, male, 127kg, 180cm, BMI: 39.2 kg/m�
Lab Values: Creatinine: 0.8 mg/dL, Hematocrit: 43.3%, WBC Count: 6.4 10�/�L, Platelet Count: 067909 cells/�L
PreOp Medications: KANG Inhibitors/ARBs <=48 hrs
Substance Abuse: Former smoker, Alcohol use: >=8 drinks/week
Risk Factors / Comorbidities: Hypertension
Pulmonary RF: Severity Unknown CLD, Sleep Apnea
Cardiac Status: NYHA Class II, Ejection Fraction = 65%
Coronary Artery Disease: 3 vessels diseased, Proximal LAD Stenosis >=70%, Stable Angina
Valve Disease: Aortic Stenosis
--- NOTE | 2024-04-28 18:50 | W.PN.UPDATE ---
Update Note
Progress Note Update
Recalculated STS with PFT results
Procedure Type:�Isolated CABG
PERIOPERATIVE OUTCOME ESTIMATE %
Operative Mortality 1.96%
Morbidity & Mortality 8.6%
Stroke 0.797%
Renal Failure 1.53%
Reoperation 1.91%
Prolonged Ventilation 5.14%
Deep Sternal Wound Infection 0.278%
Long Hospital Stay (>14 days) 4.62%
Short Hospital Stay (<6 days)* 39%
Clinical Summary
Planned Surgery: Isolated CABG, Urgent, First cardiovascular surgery
Demographics: 73 year old, male, 127kg, 180cm, BMI: 39.2 kg/m�
Lab Values: Creatinine: 0.8 mg/dL, Hematocrit: 43%, WBC Count: 6.4 10�/�L, Platelet Count: 609013 cells/�L
PreOp Medications: KANG Inhibitors/ARBs <=48 hrs
Substance Abuse: Former smoker, Alcohol use: >=8 drinks/week
Risk Factors / Comorbidities: Hypertension
Pulmonary RF: Severe CLD
Cardiac Status: Ejection Fraction = 70%
Coronary Artery Disease: 3 vessels diseased, Stable Angina, WI: 8 to 21 Days
Valve Disease: Aortic Stenosis, Trivial/Trace MR
--- NOTE | 2024-04-28 20:00 | PTCARENOTE ---
Received pt from [facility] at 1855; AAOx4, responds to spontaneous stimulation and follows commands; SB w/ RBBB on monitor; VSS; Neurovascular checks WNL; Trace edema in B/L LE; DP and radial pulses present; Lungs clear, pt states he occasionally gets
GROSS but denies any SOB at this time; Normoactive BS; Urinating yellow urine; B/L groin folds with MASD, right radial puncture site covered with gauze and tegaderm - CDI; #[address]; Pt denies any pain at this time; Pt oriented to room and
call lanier within reach; See nursing documentation for further details
[2024-04-28] MEDS: CARDURA 4 MG PO (22:31)
[2024-04-28] MEDS: INSPRA PO (22:31)
[2024-04-29] VITALS (13 sets, daily range): BP systolic 94–156; BP diastolic 60–134; PULSE 2–88; BMI 38.6
--- NOTE | 2024-04-29 | PTCARENOTE ---
Pt clipped and prepped for surgery; CHG shower taken, labs drawn, B/L UE BP readings recorded, and home medications reviewed with pt; PO Inspra held as per [facility] Tsilina orders; Pt resting comfortably in bed and assessment unchanged
[2024-04-29 03:26] LABS: Hematocrit 45.3 % (39.0-52.0); Hemoglobin 15.7 g/dL (13.0-18.0); Mean Corp Hgb Conc. 34.7 g/dL (33.0-37.0); Mean Corpuscular Hgb 31.8 pg (27.0-31.0); Mean Corpuscular Volume 91.7 fL (80.0-94.0); Mean Platelet Volume 9.9 fL (7.4-10.4); Platelet Count 186 10^3/uL (130-400); Red Blood Cell Count 4.94 10^6/uL (4.70-6.10); Red Cell Dist. Width 13.2 % (11.5-14.5); White Blood Cell Count 7.5 10^3/uL (4.8-10.8)
[2024-04-29 03:40] LABS: Blood Urea Nitrogen 14 mg/dl (9-20); Calcium 9.6 mg/dl (8.4-10.2); Carbon Dioxide 26 mmol/L (22-30); Chloride 103 mmol/L (98-107); Estimated Creatinine Clearance 109 ml/min; Glucose 102 mg/dl (70-99); Potassium 4.4 mmol/L (3.5-5.1); Sodium 139 mmol/L (135-145); eGFR > 60.00
--- NOTE | 2024-04-29 04:00 | PTCARENOTE ---
2nd CHG shower taken. Labs drawn and sent. Standing scale weight recorded. Pt now resting comfortably in bed.
[2024-04-29] MEDS: PROTONIX 40 MG PO (05:53)
[2024-04-29] MEDS: LOPRESSOR 12.5 MG PO (05:53)
[2024-04-29] MEDS: MAGNESIUM OXIDE 500 MG PO (05:53)
[2024-04-29] MEDS: BACTROBAN 2% OINTMENT 1 APPLIC NASAL ×2 (06:06→19:59)
[2024-04-29 07:55] LABS: Glycohemoglobin (HgbA1c) 5.9 % (4.0-5.6)
--- NOTE | 2024-04-29 08:05 | PTCARENOTE ---
Assumed care of patient at 0700. Report received from shift production associate RN, pre-op medications administered on prior shift. Pt is awake, alert, and oriented. Remains SB/SR with HR 50's-60's. BP 130/85 MAP 100. Pulse oximetry 98% on room air. No complaints
of pain at this time. Right radial site CDI. Pt remains NPO. CVOR called, ready for pt. Pt voided prior to transfer. and daughter plan to wait in hospital during procedure. Pt transported to [facility].
[2024-04-29] MEDS: ZETIA PO (08:25)
[2024-04-29 08:44] LABS: Urine Albumin Trace (Neg - Trace); Urine Bilirubin Negative (Negative); Urine Character Clear (Clear); Urine Color Yellow; Urine Glucose Negative (Negative); Urine Ketone Negative (Negative); Urine Leukocyte Trace (Negative); Urine Nitrite Negative (Negative); Urine Occult Blood 1+ (Negative); Urine Specific Gravity 1.015 (<1.030); Urine Urobilinogen Negative (Neg - 1+)
[2024-04-29 08:52] LABS: Urine Bacteria Few (Negative); Urine Squamous Cell 0-2 /LPF (Few)
[2024-04-29 08:54] LABS: ACT+ - POC 115 Seconds (82-134)
--- NOTE | 2024-04-29 09:05 | CM ---
Patient in OR today for CABG.
Reviewed initial assessment. Pt. resides w/ spouse in a private, 2 story home w/ 2 BERNADINE. Functionally, patient is indep. without any assisted device. Has SPC for use PRN.
Anticipate DC to home w/ CT Transitional Care RN.
CM to follow.
[2024-04-29 11:08] LABS: ACT+ - POC 747 Seconds (82-134)
[2024-04-29 11:20] LABS: B.E. - POC 0.1 mmol/L; Glucose - POC 105 mg/dl (65-99); HCO3 - POC 25 mmol/L (21-29); Hematocrit - POC 39 % PCV (42-52); Hemodilution- POC No; Hemoglobin Calculated - POC 13.4; Ionized Calcium - POC 1.15 mmol/L (1.12-1.27); O2 Saturation %Calculated-POC 99.8 5 (92-96); PCO2 - POC 41 mmHg (35-45); PO2 - POC 249 mmHg (80-100); POC Comment PRE; Sodium - POC 137 mmol/L (135-145)
[2024-04-29 11:40] LABS: ACT+ - POC 782 Seconds (82-134)
[2024-04-29 11:56] LABS: Glucose - POC 127 mg/dl (65-99); HCO3 - POC 29 mmol/L (21-29); Hematocrit - POC 33 % PCV (42-52); Hemodilution- POC Yes; Hemoglobin Calculated - POC 11.4; Ionized Calcium - POC 0.97 mmol/L (1.12-1.27); PCO2 - POC 39 mmHg (35-45); PO2 - POC 435 mmHg (80-100); POC Comment CPB; Potassium - POC 5.2 mmol/L (3.6-5.0); Sodium - POC 138 mmol/L (135-145); pH - POC 7.48 (7.35-7.45)
[2024-04-29 12:08] LABS: ACT+ - POC 644 Seconds (82-134)
[2024-04-29 12:28] LABS: B.E. - POC 2.3 mmol/L; Glucose - POC 197 mg/dl (65-99); HCO3 - POC 27 mmol/L (21-29); Hematocrit - POC 39 % PCV (42-52); Hemodilution- POC Yes; Hemoglobin Calculated - POC 13.3; Ionized Calcium - POC 1.11 mmol/L (1.12-1.27); O2 Saturation %Calculated-POC 99.7 5 (92-96); PCO2 - POC 42 mmHg (35-45); PO2 - POC 205 mmHg (80-100); POC Comment CPB; Potassium - POC 5.2 mmol/L (3.6-5.0); Sodium - POC 137 mmol/L (135-145); pH - POC 7.42 (7.35-7.45)
[2024-04-29 12:41] LABS: ACT+ - POC 703 Seconds (82-134)
[2024-04-29] MEDS: ANCEF 15 MG IV (13:21)
[2024-04-29] MEDS: ANCEF 10 IV (13:21)
[2024-04-29 13:25] LABS: B.E. - POC 2.2 mmol/L; Glucose - POC 215 mg/dl (65-99); HCO3 - POC 27 mmol/L (21-29); Hematocrit - POC 39 % PCV (42-52); Hemodilution- POC Yes; Hemoglobin Calculated - POC 13.2; Ionized Calcium - POC 1.07 mmol/L (1.12-1.27); O2 Saturation %Calculated-POC 99.9 5 (92-96); PCO2 - POC 43 mmHg (35-45); PO2 - POC 273 mmHg (80-100); POC Comment REWARM; Potassium - POC 5.3 mmol/L (3.6-5.0); Sodium - POC 138 mmol/L (135-145); pH - POC 7.41 (7.35-7.45)
[2024-04-29 13:28] LABS: ACT+ - POC 104 Seconds (82-134)
[2024-04-29 13:31] LABS: B.E. - POC -1.1 mmol/L; Glucose - POC 158 mg/dl (65-99); HCO3 - POC 24 mmol/L (21-29); Hematocrit - POC 36 % PCV (42-52); Hemodilution- POC Yes; Hemoglobin Calculated - POC 12.3; Ionized Calcium - POC 1.34 mmol/L (1.12-1.27); O2 Saturation %Calculated-POC 99.9 5 (92-96); PCO2 - POC 42 mmHg (35-45); PO2 - POC 278 mmHg (80-100); POC Comment POST; Potassium - POC 3.7 mmol/L (3.6-5.0); Sodium - POC 141 mmol/L (135-145); pH - POC 7.37 (7.35-7.45)
--- NOTE | 2024-04-29 14:08 | W.CVOR.SURPR ---
CVOR Surgeon Immed Pre Op
-
I have examined this patient prior to performance of the scheduled procedure.
The patient's condition is unchanged from the time of the dictated/written History and
Physical and the patient is able to undergo the scheduled procedure.
--- NOTE | 2024-04-29 14:08 | W.IMMPOSTOP ---
Addendum entered and electronically signed by Kenney Martinez MD 04/29/24 15:58:
[id number]
Original Note:
Surgical Immed Post Op Note
-
CARDIAC SURGERY OPERATIVE NOTE:
Preoperative Dx:
MVCAD
Mild
Mild MR
Postoperative Dx:
Same
Procedures:
1) Median sternotomy
2) Takedown of GONZALEZ (narrow pedicle)
3) Endoscopic havest/prep of RLE GSV
4) CABG x 3 (GONZALEZ to LAD, GSV to OM, GSV to RPDA)
Surgeon:
Kenney Martinez M.D.
Tray Packer:
Demarco LebronAShashank; endoscopic harvest/prep of RLE GSV, first crusher throughout
Anesthesia:
John Paul Sanchez M.D.
Perfusion:
Michael Garcia C.C.P.; XC: 66min, CPB: 107
Findings:
GONZALEZ was a healthy conduit w/ ELD 2.5mm, very brisk blood flow
GSV was healthy conduit w/ ELD 3.0-3.5mm
LAD was visible on epicardial surface, healthy willingham at midpoint anastomosis, ELD 2.5mm
OM was visible on epicardial surface, healthy willingham at anastomosis, ELD 2.25mm
R PDA was visible on epicardial surface, moderate scattered calcifications extending from crux, but at proximal anastomosis site the vessel willingham were heathy. ELD 2.5mm
Excellent flow in all grafts on hand injection and on completion transit-time U/S flow probe assessment
Pt. w/ bradycardia sinus rhythm in the 40s under GA. Required V-pacing initially, regained NSR w/ BBB in 70s
ARIS: normal biventricular function, unchanged from prior
Transfusions:
None
Implants:
Epicardial V-wire x 1; grounding wire
CT x 4 (B/L pleural, inferior mediastinal, superior mediastinal)
Sternal wires x 8
Sternal 'X' plate w/ 4 - 12mm and 4 - 14mm screws
Complications:
None
Condition:
73 sinus. 104/57. CVP: 8. 98%
GTTS: levophed 2, insulin 1, precedex 0.5
Stable/guarded to CVICU
--- NOTE | 2024-04-29 14:33 | CON.INTV ---
Consultation
Consultation Request
Date/Time Consultation Requested: 04/29/2024
Date/Time Consultation Performed: 04/29/2024
Requesting Provider: Dr. Martinez
Performing Provider: Dr. Jr Nick
Reason for Consultation: Status post coronary artery bypass/postoperative ICU care
Medical History
-
History of Present Illness:
73-year-old man with past medical history significant for hypertension, hyperlipidemia, asthma, obstructive sleep apnea, obesity presented complaining of shortness of breath on 04/28/2024. Complain also of exertional chest pain in addition to
shortness of breath.
He was seen by me in my office on 03/25/2024: Reported some nonspecific chest discomfort with exertion. He was advised to see cardiology for evaluation at that time.
Underwent coronary artery disease evaluation. On 04/27/2024 showed multivessel coronary artery disease with preserved ejection fraction. CT surgery evaluated the patient, deemed candidate for revascularization.
Past Medical History
Past Medical History: Other (See assessment and plan findings)
Social History
Tobacco: Former Smoker (Distant)
Alcohol: Daily (Wine)
Family History
Family History: Unable to Obtain
Allergies / Home Medications
Allergies
Allergy/AdvReac Type Severity Reaction Status Date / Time
Rmeaxau-JYU-GxE Reductase Allergy Lethargy, Verified 04/28/24 22:19
Inhibitor Issues
with
mobility,
and Pain
Home Medications
�Medication �Instructions �Recorded �Confirmed �Last Taken �Type
ascorbic acid (vitamin C) 500 mg 500 mg PO DAILY Supplement 04/27/24 04/27/24 04/26/24 History
tablet (Vitamin C)
aspirin 325 mg tablet 325 mg PO DAILY Blood Clot 04/27/24 04/27/24 04/26/24 History
Prevention/Tx
bimatoprost 0.01 % eye drops 1 drp BOTH EYES HS Eye Condition 04/27/24 04/27/24 04/26/24 History
(Medigan)
cholecalciferol (vitamin D3) 50 100 mcg PO DAILY Supplement 04/27/24 04/27/24 04/26/24 History
mcg (2,000 unit) tablet (Vitamin
D3)
cyanocobalamin (vitamin B-12) 500 500 mcg PO DAILY Supplement 04/27/24 04/27/24 04/26/24 History
mcg tablet
doxazosin 4 mg tablet 4 mg PO HS Urinary Issue 04/27/24 04/27/24 04/26/24 History
eplerenone 25 mg tablet 75 mg PO HS Lung/Breathing Issues 04/27/24 04/27/24 04/26/24 History
ezetimibe 10 mg tablet 10 mg PO DAILY High Cholesterol 04/27/24 04/27/24 04/26/24 History
fluticasone furoate 200 1 inh inhalation R DAILY Congestion 04/27/24 04/27/24 04/26/24 History
mcg-vilanterol 25 mcg/dose
inhalation powder (Breo Ellipta)
loratadine 10 mg tablet (Claritin) 10 mg PO HS Allergies 04/27/24 04/27/24 04/26/24 History
losartan 25 mg tablet 25 mg PO HS Blood Pressure 04/27/24 04/27/24 04/26/24 History
montelukast 10 mg tablet 10 mg PO HS ASTHMA 04/27/24 04/27/24 04/26/24 History
fvonnqxb-lqp-czbuf acid 0.4 1 tab PO DAILY Supplement 04/27/24 04/27/24 04/26/24 History
mg-lycopene 300 mcg-lutein 250 mcg
tablet (Centrum Silver)
saw palmetto 450 mg capsule 900 mg PO DAILY Supplement 04/27/24 04/27/24 04/26/24 History
vitamin B complex 1 tab PO DAILY Supplement 04/27/24 04/27/24 04/26/24 History
zinc sulfate 50 mg zinc (220 mg) 50 mg PO DAILY Supplement 04/27/24 04/27/24 04/26/24 History
tablet
Review of Systems
-
Unable to Obtain full review of systems at this time due to: Patient Intubation
Vitals / Labs / Diagnostic Testing
Vital Signs
Temp Pulse Resp BP Pulse Ox
97.8 F 55 15 130/85 95
04/29/24 03:03 04/29/24 07:51 04/29/24 03:03 04/29/24 07:51 04/29/24 03:06
Laboratory Results
04/28/24
14:14
PT 13.5
INR 1.05
APTT 116.1 H
Diagnostic Testing:
Physical Exam
-
HEENT: Normocephalic and Other (ET tube in place without secretion)
Cardiovascular: S1/S2
Respiratory: Clear and Other (Chest tube in place without air leak or excessive drainage)
GI: Soft
Neurology: Other (Intubated, sedated on mechanical ventilator)
General: Comfortable
Assessment
-
Status post coronary artery bypass 04/29/2024
Postoperative mechanical ventilation
Postoperative anemia
Conditions present prior admission:
Hypertension
Hyperlipidemia
Cough variant asthma- on BREO
Follows up with Dr. Nick
Last visit 03/25/2024: He was advised to make an appointment with cardiology.
Obstructive sleep apnea
Obesity
Assessment and plan:
He is doing well postop-currently on mechanical ventilation and appears comfortable.
ABG reviewed: Adequate ventilation and oxygenation.
Continue SIMV mode with no change
Spontaneous breathing trial per protocol once sedation wears off.
Anemia noted-no evidence of acute bleeding
Follow H&H serially
Hemodynamics -acceptable
Chest tube with no excessive drainage-no air leak.
Chest x-ray reviewed: With no pneumothorax or fluid collections.
Remain nothing by mouth
Head of the bed elevation
Not bronchospastic on exam
Restart inhalers after extubation
Glycemic control per protocol
DVT prophylaxis when safe from the surgical perspective.
Critical care statement: A total of 31 minutes of critical care time was provided for this patient today. This includes management of unstable vital signs, evaluation of the patient at bedside, reviewing the patient's pertinent medical records
including ventilator settings, arterial blood gases, radiographs, microbiology, laboratory evaluations and discussion with primary team, critical care nursing, and respiratory therapy.
[2024-04-29 14:44] LABS: Glucose - Point of Care 123 mg/dl (70-99)
--- NOTE | 2024-04-29 14:49 | W.PN.UPDATE ---
Update Note
Progress Note Update
IV fluids: 3800
U.O.:� 1350
UF:� 1500
Blood:� None
Wires:� Ventricular
Inotropes:� None
Pressors:� levophed
Sedatives:� Precedex
�
NEURO: sedated on precedex, pupils +2mm B/L
RESP: #8OT @22cm> 16/550/60/5 Lungs clear B/L. 2 mediastinal (5cc on arrival) and R/L pleural (30cc on arrival) chest tubes to -20cm suction. Sanguineous drainage
CV: RRR +S1, S2, no S3, no�rub, no murmur. Dermabond to median sternotomy. RIJ w/slicc
ABD: round, soft, no BS
EXT: no edema, +2/4 DP pulses B/L, no femoral bruit, right LE KANG wrap intact; left radial A-line intact
: Calzada with clear yellow urine
�
A/P: POD #0 s/p CABG x3
ARIS: EF�55% no new RWMA
- wean and extubate
- Monitor CT and urine output
- Follow up labs and CXR
- Wean levophed for maps >65
- Will start ASA tonight
- EKG pending and will send to cards
- Cards consulted
�
# acute surgical blood loss anemia-expected
- trend CBC
�
# Hyperglycemia
- insulin infusion x 24h
�
# Hyperlipidemia
- resume�zetia when tolerating PO
[2024-04-29 14:51] LABS: B.E. -0.2 mmol/L; HCO3 25.9 mmol/L (21-28); Ionized Calcium 1.17 mMOL/L (1.15-1.33); O2 Saturation % 97.8 % (94-98); PCO2 47 mmHg (35-48); PO2 82 mmHg (83-108); Potassium 3.9 mMOL/L (3.5-5.1); Sodium 135 mMOL/L (136-145); pH 7.35 (7.35-7.45)
[2024-04-29 14:54] LABS: Mixed Venous O2 Saturation 75.7 %
[2024-04-29 15:00] LABS: PT 16.3 Sec (11.4-14.6)
[2024-04-29 15:01] LABS: APTT 38.5 Sec (23.4-35.0)
[2024-04-29] MEDS: DILAUDID 0.5 MG IV (15:02)
[2024-04-29 15:04] LABS: Hematocrit 36.2 % (39.0-52.0); Hemoglobin 12.7 g/dL (13.0-18.0); Platelet Count 140 10^3/uL (130-400)
[2024-04-29 15:10] LABS: Blood Urea Nitrogen 13 mg/dl (9-20); Estimated Creatinine Clearance 109 ml/min; Glucose 128 mg/dl (70-99); Magnesium 2.3 mg/dl (1.6-2.3)
--- NOTE | 2024-04-29 15:31 | PTCARENOTE ---
Pt arrived from CVOR to CVICU at 1430. Initially hypotensive SBP 70's, MAP 53. Pt on Levo increased to 5mcg/min. Ultimately becoming hypertensive with SBP 150, MAP 104 requiring Nitro at 15mcg/min. Currently both Nitro and Levo off. Currently BP
132/77 MAP 94. CVP 15. Epicardial V wire in place set to VVI, 30/10/.8. Core temp 97.1, Zaina hugger in place. #8ET tube at 22 on right lip. Oral care completed. SIMV, FiO2 40%, rate 16, TV 550, PEEP 5, Pressure support 5. Pulse oximetry 92%.
Mediastinal chest tubes x 2 and left/right pleural chest tubes in place, no sign of air leak or crepitus, drainage red in color. Hypoactive bowel sounds, abdomen round/obese. Calzada catheter in place draining pink tinged urine. Calzada care completed.
Midsternal incision Aquacel dressing CDI. Right leg incision with candy wrap overlay. Right IJ cordis in place with SLIC, CVP being transduced through cordis. Left radial Erica intact. Remains on insulin gtt per glycemic protocol. Post-op xray
completed, EKG completed. Labs collected and reviewed.
--- NOTE | 2024-04-29 15:45 | W.PN.CARDCBS ---
Addendum entered and electronically signed by Shemar Porter MD 04/29/24 17:47:
I saw and examined the patient.
The International Logistics Manager's note was reviewed and I agree with the note.
Comment: Briefly, 73-year-old man who presented with chest discomfort to the [place] emergency department on 04/27/2024. Subsequent left heart catheterization performed for unstable angina which revealed multivessel CAD. Underwent surgical
revascularization earlier today with CABG x3.
Currently recovering in the CVICU, extubated to BiPAP and requiring norepinephrine for pressor support
Telemetry reviewed, he did have an episode of sinus bradycardia which briefly required pacing via temporary wires, would continue to monitor on telemetry overnight, consider holding AV aamir blockers
Filling pressures are mildly elevated by invasive hemodynamics, suspect he will eventually need diuresis
Agree with aspirin/Plavix
Reportedly statin intolerant, continue Zetia, will need to consider alternative lipid-lowering therapies such as PCSK9 inhibitor
Original Note:
Today's Communication / Plan
-
HD stable without pressors
Follow tele
Impression / Plan
-
PCP: Dr. Guy
Cardiology: Dr. CARLITO Lomax, last seen 12/2022
Nephrology: Dr. Lees
Impression:
Chest pain and GROSS on admission with serially undetectable Troponin 04/27/24
CAD
multivessel CAD by cath 04/28/24
CAD s/p CABG with ENRIQUEZ to LAD, SVG to OM and SVG to RPDA 04/29/24
HTN
Untreated hyperlipidemia due to statin intolerance and patient refusal of PCSK9 inhibitor meds
Mild by echo 06/2022
Morbid obese
cRBBB
LAFB
Echo 06/22/22: EF 70-75%, mild conc LVH, mild peak/mean 20/10 mmHg and NICKY 2.0 cm sq
Echo 04/27/24: EF 65 to 70%, moderate concentric LVH, mild with peak/mean 16/10 mmHg and NICKY 1.7 cm sq, no aortic insufficiency
Plan:
-Patient is s/p ENRIQUEZ to LAD, SVG to OM and SVG to RPDA 04/29/24. He is not on pressors.
-Immediate post-op ECG without acute ischemic change. There was evidence of RBBB on admission
-Intra-op ARIS with stable EF
-LDL 159 on admission. Patient was not taking a statin prior to admission and says he is intolerant to Fenofibrate due to joint pain, atorvastatin caused him to have joint pain and feel sluggish, simvastatin caused joint pain and fatigue. Patient
refused to consider PCSK9 inhibitors before. Will need to have ongoing discussions about the repercussions of an untreated LDL of 159 and known CAD. 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
HPI: Patient came to [facility] today with chest pain and GROSS and cardiology has been consulted. Patient last saw Dr. Lomax in the office 12/07/22 and complained of chest pain and GROSS, but had previously completed a Lexiscan mibi 09/17/22 that showed a small
area of mildly decreased perfusion that was fixed in the mid inferior and apical inferior and partially improved with prone imaging. When patient complained of recurrent symptoms at the 12/07/22 office visit he was recommended PCSK9 inhibitor for
untreated hyperlipidemia and a coronary calcium score, but he declined and did not come back to the office. Patient says that since the beginning of the summer he has had a rapid deterioration in his activity levels due to exertional intolerance. He
describes chest pain from shoulder to shoulder and GROSS when he walks more than 10 yards. He says that if he tries to complete too much activity that he vomits. No resting chest pain or GROSS. No substernal pain and no radiation to his neck or jaw. He
has experience similar symptoms for more than 1 year, but happening at lower levels of activity now. Patient with chronic LE edema that has been present for months. He says edema is there even in the morning when he wakes up. He also complains of
bloating and at one point had lost 10 lbs, but then gained the weight back quickly and has not gained any additional weight. He says that despite this he thinks his pants are looser at the waist than before. He has HTN that is managed by Nephrology
using Cardura, eplerenone and losartan. His resting BP is 150/88 in the ER and he has similar readings at home. He also has a h/o mild by last echo almost 2 years ago. Patient says that he has described his symptoms to family members who are
physicians and also to friends and they all feel that he has CAD and that he needs a stent so this is the reason he came to [facility] today and not months ago.
Progress Note - Town Manager
Subjective
Date of Service: April 29, 2024
Intubated and sedated
Objective
Labs:
04/29/24 14:39
Labs
Hgb 12.7 g/dL (13.0-18.0) L 04/29/24 14:39
Hct 36.2 % (39.0-52.0) L 04/29/24 14:39
Plt Count 140 10^3/uL (130-400) D 04/29/24 14:39
PT 16.3 Sec (11.4-14.6) H 04/29/24 14:39
INR 1.30 04/29/24 14:39
APTT 38.5 Sec (23.4-35.0) H 04/29/24 14:39
Sodium 139 mmol/L (135-145) 04/29/24 03:16
Potassium 4.4 mmol/L (3.5-5.1) 04/29/24 03:16
BUN 13 mg/dl (9-20) 04/29/24 14:39
Creatinine 0.8 mg/dL (0.7-1.3) 04/29/24 14:39
Glucose 128 mg/dl (70-99) H 04/29/24 14:39
Troponins
04/27/24 04/28/24
11:16 07:51
Troponin I < 0.012 0.028
Vital Signs and I&O:
Vital Signs
Temp Pulse Resp BP Pulse Ox
97.2 F 75 16 130/85 91
04/29/24 15:20 04/29/24 15:05 04/29/24 15:00 04/29/24 07:51 04/29/24 15:27
Vital Signs
Temp Pulse Resp BP Pulse Ox
97.2 F 75 16 130/85 91
04/29/24 15:20 04/29/24 15:05 04/29/24 15:00 04/29/24 07:51 04/29/24 15:27
Intake & Output
04/27/24 04/28/24 04/29/24 04/30/24
06:59 06:59 06:59 06:59
Intake Total 1250 / 1250 300 / 300 38.2 / 38.2
Output Total 145 / 145
Balance 1250 / 1250 300 / 300 -106.8 / -106.8
Physical Exam
Physical Exam
GEN: Intubated and sedated
HEENT: MMM
LUNGS: Intubated and on the ventilator
CV: SR, RBBB, LAFB on ECG
ABD: ND
EXT: Trace B/L LE edema
SKIN: No rash
[2024-04-29] MEDS: NEURONTIN PO ×3 (15:48→22:15)
[2024-04-29] MEDS: TYLENOL PO ×2 (15:49→22:15)
[2024-04-29] MEDS: VITAMIN B-12 PO (15:49)
[2024-04-29] MEDS: NSS 500 IV (15:49)
[2024-04-29] MEDS: VITAMIN C PO (15:49)
[2024-04-29] MEDS: VITAMIN D3 (cholecalciferol) PO (15:49)
[2024-04-29] MEDS: CALCIUM CHLORIDE 10% SYRINGE 500 MG IV ×4 (15:55→17:29)
[2024-04-29] MEDS: LR 250 IV ×3 (16:00→18:58)
--- NOTE | 2024-04-29 16:10 | PTCARENOTE ---
BP very labile requiring Nitro/Levo. Pt became bradycardic with HR dropping 30's requiring pacing. Pacing setting changed to VVI 60/10/0.8. Pt hypotensive with SBP 60's. CT surgeon, Dr. Maritnez, at bedside along with CT PLASTICS FABRICATOR AND ASSEMBLER, Lennie, at bedside. Calcium
push x2 administered. 250mL LR Bolus administered.
[2024-04-29] MEDS: VENTOLIN NEBULES 2.5 MG INH (16:13)
[2024-04-29] MEDS: DILAUDID 0.25 MG IV (16:23)
[2024-04-29 16:29] LABS: Glucose - Point of Care 111 mg/dl (70-99)
[2024-04-29] MEDS: KCL 50 IV (16:38)
[2024-04-29 16:57] LABS: B.E. -2.9 mmol/L; HCO3 23.7 mmol/L (21-28); Ionized Calcium 1.35 mMOL/L (1.15-1.33); O2 Saturation % 99.1 % (94-98); PCO2 47 mmHg (35-48); PO2 117 mmHg (83-108); pH 7.31 (7.35-7.45)
--- NOTE | 2024-04-29 17:15 | PTCARENOTE ---
CPAP trial started at 1615, ABG collected at 1645. Results reviewed with CT WASHING MACHINE REPAIRER. Pt extubated at 1710 to BiPAP 6L 15/03. Pulse oximetry 95%.
--- NOTE | 2024-04-29 17:20 | RESPNOTE ---
pt extubated at 1710 to bipap with settings of 14/7 with 6lpm of 02. 02 sats of 97% noted
[2024-04-29] MEDS: ZOFRAN 4 MG IV (17:28)
[2024-04-29 17:31] LABS: Glucose - Point of Care 113 mg/dl (70-99)
[2024-04-29 18:02] LABS: Glucose - Point of Care 124 mg/dl (70-99)
[2024-04-29 18:13] LABS: HCO3 24.3 mmol/L (21-28); Ionized Calcium 1.48 mMOL/L (1.15-1.33); O2 Saturation % 98.1 % (94-98); PCO2 46 mmHg (35-48); PO2 90 mmHg (83-108); Potassium 5.5 mMOL/L (3.5-5.1); Sodium 134 mMOL/L (136-145); pH 7.33 (7.35-7.45)
[2024-04-29 18:24] LABS: Hematocrit 38.6 % (39.0-52.0); Hemoglobin 13.4 g/dL (13.0-18.0); Platelet Count 149 10^3/uL (130-400)
[2024-04-29] MEDS: ANCEF 5 IV (18:26)
[2024-04-29] MEDS: ASPIRIN 300 MG RECTAL (18:26)
--- NOTE | 2024-04-29 18:30 | PTCARENOTE ---
Pt hypotensive with SBP 70's. Calcium pushed x2. Pt reports feeling nauseous, PRN Zofran administered. BP extremely labile and sensitive to med titration. Additional 250mL bolus administered.
[2024-04-29 19:13] LABS: Glucose - Point of Care 112 mg/dl (70-99)
[2024-04-29] MEDS: OFIRMEV 100 IV (19:58)
[2024-04-29] MEDS: SENOKOT-S PO (19:59)
--- NOTE | 2024-04-29 20:00 | PTCARENOTE ---
Received pt from [facility]. pt resting in bed s/p CABGx3. NSR on monitor, vss. pt is AAOX4, states pain is 5/10. heart sounds audible, radial and DP pulse palpable, trace generalized edema, temp epicardial V-wires set to VVI rate of 60, MA of 10, Mv
of 0.8. lungs clear, diminished at b/l bases, spo2 93% on bipap, 6L o2, x2 MS CT and right/left pleural CT to -20 wall suction, no air leaks, no tidaling, no crepitus. hypoactive BS x4 quadrants, abdomen, soft non tender, round obese, pt NPO after
midnight. pt voiding blood tinged urine via esqueda catheter, CVPA aware. surgical sites maintained. right IJ cordis/slick, left radial A-line, and PIV all maintained, leveled, and zeroed. insulin gtt infusing. Possible PPM placement tomorrow,
04/30/24. family at bedside. call lanier within reach. will continue to monitor.
[2024-04-29 20:01] LABS: B.E. 0.3 mmol/L; Hematocrit 36.3 % (39.0-52.0); Hemoglobin 12.6 g/dL (13.0-18.0); Ionized Calcium 1.38 mMOL/L (1.15-1.33); O2 Saturation % 98.5 % (94-98); PCO2 45 mmHg (35-48); PO2 88 mmHg (83-108); Potassium 5.2 mMOL/L (3.5-5.1); pH 7.37 (7.35-7.45)
[2024-04-29] MEDS: SYMBICORT 160/4.5 MCG INHALER 2 PUFF INH (20:37)
[2024-04-29 21:14] LABS: Glucose - Point of Care 99 mg/dl (70-99)
[2024-04-29] MEDS: CARDURA PO (22:15)
[2024-04-29] MEDS: INSPRA PO (22:15)
[2024-04-29 22:58] LABS: Glucose - Point of Care 110 mg/dl (70-99)
[2024-04-30] VITALS (18 sets, daily range): BP systolic 73–153; BP diastolic 61–95; PULSE 2–80; O2SAT 98; BMI 38.9
--- NOTE | 2024-04-30 | PTCARENOTE ---
Pt assessment unchanged. NSR on monitor, VSS. pt resting comfortably in bed. Ofimev given for pain, see MAR. Levo titrated from 1mcg/min to 2mcg/min. Pt now NPO pr possible PPM placement 04/30/24. call lanier within reach. will continue to monitor.
[2024-04-30 01:14] LABS: Glucose - Point of Care 101 mg/dl (70-99)
[2024-04-30] MEDS: DILAUDID 0.5 MG IV ×2 (02:53→06:04)
[2024-04-30 03:07] LABS: Glucose - Point of Care 117 mg/dl (70-99)
[2024-04-30 03:25] LABS: Hematocrit 34.7 % (39.0-52.0); Hemoglobin 12.1 g/dL (13.0-18.0); Mean Corp Hgb Conc. 34.9 g/dL (33.0-37.0); Mean Corpuscular Hgb 31.3 pg (27.0-31.0); Mean Corpuscular Volume 89.7 fL (80.0-94.0); Platelet Count 152 10^3/uL (130-400); Red Blood Cell Count 3.87 10^6/uL (4.70-6.10); Red Cell Dist. Width 13.3 % (11.5-14.5); White Blood Cell Count 13.1 10^3/uL (4.8-10.8)
[2024-04-30 03:47] LABS: Blood Urea Nitrogen 20 mg/dl (9-20); Calcium 9.3 mg/dl (8.4-10.2); Carbon Dioxide 25 mmol/L (22-30); Chloride 106 mmol/L (98-107); Estimated Creatinine Clearance 80 ml/min; Glucose 109 mg/dl (70-99); Magnesium 2.1 mg/dl (1.6-2.3); Potassium 5.1 mmol/L (3.5-5.1); Sodium 140 mmol/L (135-145); eGFR > 60.00
--- NOTE | 2024-04-30 04:00 | PTCARENOTE ---
Pt assessment unchanged. NSR on monitor. VSS. call lanier within reach. will continue to monitor.
[2024-04-30] MEDS: ANCEF 5 IV ×2 (04:13→11:09)
--- NOTE | 2024-04-30 04:35 | W.PN.CT ---
Addendum entered and electronically signed by Kenney Martinez MD 04/30/24 07:44:
I saw and examined the patient.
The PA's note was reviewed and I agree with the note.
Comment:
Doing well postop day 1 status post CABG x 3
De-line
DC Calzada
Out of bed, I-S, ambulate
Greatly appreciate the expertise of my EP colleagues, will continue to monitor heart rhythm.
Original Note:
Today's Communication / Plan
-
-pod #1
-hematuria postop. Hg stable 12.1/34.7 this am
-drips: insulin, Levo 1
-bradycardic postop, requiring pacing with bifascicular block (old RBBB, new LAFB)
-in nsr 70s overnight. No pauses or significant pito most of the night. Had 13 beat run of SVT 160s at 5:30am, followed by V-pacing @ 60 (felt palpitations)
-NPO in case needs pacer
-Holding BB and Amio. Follow rhythm
-ECG appears to be at baseline with pre-existing RBBB, no LAFB
-CT output: 2 meds 120/300, 2 pleur 130/220 in 12/24 hrs
-on bipap 16/7 with 6L O2 overnight with pOx 96%. Wean off O2 as tolerated
-deline
-d/c Calzada
-d/c insulin
-current meds (ASA, Plavix, Zetia, Cardura, Inspra, Protonix). Holding BB and Amio for postop bradycardia. Intolerance of statins
-encourage IS, OOB
Assessment / Plan
-
-Mv-CAD - s/p CABG x 3 (GONZALEZ to LAD, GSV to OM, GSV to RPDA) by Dr. Martniez on 04/29/24, pod #1
- Intraop ARIS: normal biventricular function, unchanged from prior
- Pt. w/ bradycardia sinus rhythm in the 40s under GA. Required V-pacing initially, regained NSR w/ BBB in 70s
- HTN/HLD
- Class 2 obesity (BMI 38)
- Pre-existing RBBB
- ASUNCION, not on CPAP
- Asthma
- COPD
- Former smoker
- EtOH daily (beer or wine)
- Scattered R sided pulmonary nodules upto 1.3cm on chest CT 04/28/24
- R adrenal adenoma 1.9 cm
- Acute postop bifascicular block (new RBBB and LAFB) with bradycardia, requiring pacing briefly postop - will hold BB and Amio
- Acute postop blood loss anemia
- Acute postop hypovolemia with subsequent hypervolemia
- Acute postop atelectasis
- Acute postop hematuria
- Brief SVT 160s on 04/30, followed by V-pacing @60 bpm
Discussed patient care with: Nursing and Care Team
Subjective
Procedure
- s/p CABG x 3 (GONZALEZ to LAD, GSV to OM, GSV to RPDA) by Dr. Martinez on 04/29/24
-
Date of Service: April 29, 2024
Objective Data
-
Lab Results
04/29/24 19:43
04/29/24 14:39
PT 16.3 Sec (11.4-14.6) H 04/29/24 14:39
INR 1.30 04/29/24 14:39
APTT 38.5 Sec (23.4-35.0) H 04/29/24 14:39
Vital Signs
Vital Signs
Temp Pulse Resp BP Pulse Ox
100.1 F 78 13 100/64 96
04/29/24 23:00 04/29/24 23:00 04/29/24 23:00 04/29/24 23:00 04/29/24 23:00
CT Intake/Output/Weight
04/29/24 04/29/24 04/30/24
06:59 18:59 06:59
Intake Total 300 / 300 125.4 / 353.0 227.6 / 353.0
Output Total 465 / 740 275 / 740
Balance 300 / 300 -339.6 / -387.0 -47.4 / -387.0
SaO2: 96
Physical Exam
-
General: Awake and AOx3
Cardiovascular: Regular rate & rhythm, No Murmurs and No Rub
Respiratory: Decreased Breath Sounds
Sternum: Stable
Incision: Clean, Dry and Intact
Extremities: Edema +1 (2+ DPs b/l)
Abdomen: nontender, soft, ? mildly distended, +decreased bowel sounds
Data Reviewed
-
Lab Results: Results Reviewed
Medications: Active Meds Reviewed
Chest X-Ray: Report Reviewed and Image Reviewed
ECG: Report Reviewed and Image Reviewed
[2024-04-30] MEDS: ROXICODONE 5 MG PO ×4 (04:41→21:17)
[2024-04-30] MEDS: TYLENOL 1000 MG PO ×2 (04:41→14:17)
[2024-04-30 05:13] LABS: Glucose - Point of Care 107 mg/dl (70-99)
--- NOTE | 2024-04-30 05:51 | PTCARENOTE ---
NSR on monitor. VSS. small run of VT. resolved with VSS. pt's A-line and slick will remain in. Pt will remain in bed until evaluated for PPM. on going pain management, see OCT.
[2024-04-30] MEDS: SYMBICORT 160/4.5 MCG INHALER 2 PUFF INH (06:19)
[2024-04-30] MEDS: ZOFRAN 4 MG IV (06:54)
[2024-04-30 07:17] LABS: Glucose - Point of Care 93 mg/dl (70-99)
--- NOTE | 2024-04-30 07:25 | W.PN.CARDCBS ---
Addendum entered and electronically signed by Fausto Loera MD 04/30/24 12:10:
Patient seen, interviewed and examined by me.
Well-appearing, no acute distress
Chest tubes in place
Pericardial pacing wire in place
Regular rate and rhythm with normal S1 and S2, no S3 no S4. There is a grade 1/6 apical holosystolic murmur and no rubs. PMI is normally placed.
Lungs are clear to auscultation bilaterally without wheezes rales or rhonchi.
Abdomen soft nontender nondistended with normoactive bowel sounds
Extremities show trace pretibial edema bilaterally no clubbing or cyanosis.
Neurologic exam is grossly nonfocal.
Agree with advanced practice professionals assessment and plan as noted below.
I reviewed telemetry. This morning at around 6:50 AM he had several beat run of PAT self terminating with some degree of a pause followed by pacing at a backup rate of 60 bpm.
I have reduced base pacing rate of 30 bpm should another pause occur so that I can see how long the pause may be. But at this point I do not see an immediate indication for pacing.
Recommend we continue to monitor over the course of the next 24 hours before making a definitive decision regarding need for permanent pacemaker implantation this hospital stay.
Discussed with the patient and also discussed with CT surgery.
Original Note:
Today's Communication / Plan
-
Follow rhythm on tele, amio and BB on hold
Continue post op care
Impression / Plan
-
PCP: Dr. Guy
Cardiology: Dr. CARLITO Lomax, last seen 12/2022
Nephrology: Dr. Lees
Impression:
Chest pain and GROSS on admission with serially undetectable Troponin 04/27/24
CAD
multivessel CAD by cath 04/28/24
CAD s/p CABG with ENRIQUEZ to LAD, SVG to OM and SVG to RPDA 04/29/24
HTN
Untreated hyperlipidemia due to statin intolerance and patient refusal of PCSK9 inhibitor meds
Mild by echo 06/2022
Morbid obese
cRBBB
LAFB
Echo 06/22/22: EF 70-75%, mild conc LVH, mild peak/mean 20/10 mmHg and NICKY 2.0 cm sq
Echo 04/27/24: EF 65 to 70%, moderate concentric LVH, mild with peak/mean 16/10 mmHg and NICKY 1.7 cm sq, no aortic insufficiency
Plan:
-Patient is s/p ENRIQUEZ to LAD, SVG to OM and SVG to RPDA 04/29/24.
-Seen this AM, feeling well with no issues overnight.
-Brief run of atrial tachycardia noted this AM on review of telemetry. Spontaneously broke from tachycardia into paced rhythm, pacer set at 60 at the time. Pacer turned down to 30 to see if longer pauses noted. If noted, patient may require PPM.
-Amio and lopressor on hold.
-EKG stable this AM.
-Continue aspirin, plavix, zetia.
-BP stable, continue eplerenone, doxazosin.
-LDL 159 on admission. Patient was not taking a statin prior to admission and says he is intolerant to Fenofibrate due to joint pain, atorvastatin caused him to have joint pain and feel sluggish, simvastatin caused joint pain and fatigue. Patient
refused to consider PCSK9 inhibitors before. Will need to have ongoing discussions about the repercussions of an untreated LDL of 159 and known CAD. 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
-Patient reported some hematuria yesterday. Follow today. Hgb stable at 12.1.
-Continue post op care.
HPI: Patient came to [facility] today with chest pain and GROSS and cardiology has been consulted. Patient last saw Dr. Lomax in the office 12/07/22 and complained of chest pain and GROSS, but had previously completed a Lexiscan mibi 09/17/22 that showed a small
area of mildly decreased perfusion that was fixed in the mid inferior and apical inferior and partially improved with prone imaging. When patient complained of recurrent symptoms at the 12/07/22 office visit he was recommended PCSK9 inhibitor for
untreated hyperlipidemia and a coronary calcium score, but he declined and did not come back to the office. Patient says that since the beginning of the summer he has had a rapid deterioration in his activity levels due to exertional intolerance. He
describes chest pain from shoulder to shoulder and GROSS when he walks more than 10 yards. He says that if he tries to complete too much activity that he vomits. No resting chest pain or GROSS. No substernal pain and no radiation to his neck or jaw. He
has experience similar symptoms for more than 1 year, but happening at lower levels of activity now. Patient with chronic LE edema that has been present for months. He says edema is there even in the morning when he wakes up. He also complains of
bloating and at one point had lost 10 lbs, but then gained the weight back quickly and has not gained any additional weight. He says that despite this he thinks his pants are looser at the waist than before. He has HTN that is managed by Nephrology
using Cardura, eplerenone and losartan. His resting BP is 150/88 in the ER and he has similar readings at home. He also has a h/o mild by last echo almost 2 years ago. Patient says that he has described his symptoms to family members who are
physicians and also to friends and they all feel that he has CAD and that he needs a stent so this is the reason he came to [facility] today and not months ago.
Progress Note - Smash Fixer
Subjective
Date of Service: April 30, 2024
Feeling well with no complaints other than expected chest soreness.
Objective
Labs:
04/30/24 03:01
04/30/24 03:01
Labs
Hgb 12.1 g/dL (13.0-18.0) L 04/30/24 03:01
Hct 34.7 % (39.0-52.0) L 04/30/24 03:01
Plt Count 152 10^3/uL (130-400) 04/30/24 03:01
PT 16.3 Sec (11.4-14.6) H 04/29/24 14:39
INR 1.30 04/29/24 14:39
APTT 38.5 Sec (23.4-35.0) H 04/29/24 14:39
Sodium 140 mmol/L (135-145) 04/30/24 03:01
Potassium 5.1 mmol/L (3.5-5.1) 04/30/24 03:01
BUN 20 mg/dl (9-20) 04/30/24 03:01
Creatinine 1.1 mg/dL (0.7-1.3) 04/30/24 03:01
Glucose 109 mg/dl (70-99) H 04/30/24 03:01
Troponins
04/27/24 04/28/24
11:16 07:51
Troponin I < 0.012 0.028
Vital Signs and I&O:
Vital Signs
Temp Pulse Resp BP Pulse Ox
100.1 F 75 22 114/73 95
04/30/24 07:00 04/30/24 07:20 04/30/24 07:20 04/30/24 07:00 04/30/24 07:20
Vital Signs
Temp Pulse Resp BP Pulse Ox
100.1 F 75 22 114/73 95
04/30/24 07:00 04/30/24 07:20 04/30/24 07:20 04/30/24 07:00 04/30/24 07:20
Intake & Output
04/28/24 04/29/24 04/30/24 05/01/24
06:59 06:59 06:59 06:59
Intake Total 1250 / 1250 300 / 300 540.3 / 560.9 20.6 / 20.6
Output Total 1120 / 1165 45 / 45
Balance 1250 / 1250 300 / 300 -579.7 / -604.1 -24.4 / -24.4
Physical Exam
Physical Exam
GEN: Awake, alert, oriented x3. NAD
HEENT: MMM
LUNGS: CTA b/l, no
CV: Reg, no murmur
EXT: No clubbing or cyanosis, trace b/l LE edema
SKIN: Warm, dry, no rash
--- NOTE | 2024-04-30 07:30 | PTCARENOTE ---
Assumed care of patient from health researcher RN. AAO x 3, Flat and anxious affect with introduction. Pt with intermittent nausea/vomiting with any coughing or 'fearful thoughts'. Pt vomited approx 30 ml bilious fluid. Discussed with CT COMPLIANCE LEAD, taryn
ordered and administered. Otherwise, NSR on monitor. Epicardial wire to back up of VVI 30, per cardiology. Sternal incision with aquacel c,d,i. Rt Leg incision c,d,i. DP pulses palpable. Calzada with hematuria present. Plan for day discussed.
--- NOTE | 2024-04-30 07:36 | W.PN.ANS.POP ---
Anesthesia Post Operative
- Anesthesia Post Op Note
Vital Signs Stable-See Nursing Note: Yes
Airway Patent: Yes
Adequate Pain Control: Yes
Change in Mental Status: No
Current Postoperative Nausea & Vomiting: No
Anesthesia Complications: No
General Anesthetic Recall: No
Unplanned Admission: No
Post Op Hydration Adequate: Yes
[2024-04-30] MEDS: VITAMIN D3 (cholecalciferol) PO (07:54)
[2024-04-30] MEDS: ZINC SULFATE PO (07:54)
[2024-04-30] MEDS: VITAMIN B-12 PO (07:54)
[2024-04-30] MEDS: VITAMIN C PO (07:54)
[2024-04-30] MEDS: ZETIA PO (07:54)
[2024-04-30] MEDS: PLAVIX 75 MG PO (08:15)
[2024-04-30] MEDS: LOW STRENGTH ASPIRIN 81 MG PO (08:15)
[2024-04-30] MEDS: PROTONIX 40 MG PO (08:15)
[2024-04-30] MEDS: MAGNESIUM OXIDE PO (08:16)
[2024-04-30] MEDS: SENOKOT-S 1 TABLET PO ×2 (08:16→21:20)
[2024-04-30] MEDS: BACTROBAN 2% OINTMENT 1 APPLIC NASAL ×2 (08:16→21:22)
[2024-04-30] MEDS: NEURONTIN 100 MG PO ×3 (08:16→21:20)
[2024-04-30] MEDS: REGLAN 10 MG IV (08:55)
[2024-04-30 09:01] LABS: Glucose - Point of Care 99 mg/dl (70-99)
[2024-04-30] MEDS: LIDOCAINE 4% PATCH TOPICAL (09:33)
[2024-04-30] MEDS: LOPRESSOR 12.5 MG PO ×2 (09:43→21:19)
[2024-04-30 11:20] LABS: Glucose - Point of Care 113 mg/dl (70-99)
--- NOTE | 2024-04-30 11:45 | PTCARENOTE ---
Assist x 2 oob to chair. Did well. Denied dizziness.. Pt grossly diaphoretic, but states this is a chronic issue. Linens and gown changed. VSS. Insulin drip dc'd per FILL MANAGER. Assessment unchanged from prior.
[2024-04-30] MEDS: NSS IV (12:40)
--- NOTE | 2024-04-30 13:52 | W.PN.INTV ---
Today's Communication / Plan
Recommendations
Continue postoperative care
Analgesia
Increase activity as able
Incentive spirometry
Monitor on telemetry
Continue inhalers
Monitor H&H
Transition to telemetry
Sign off
Assessment
-
Status post coronary artery bypass 04/29/2024
Postoperative mechanical ventilation
Postoperative anemia
Conditions present prior admission:
Hypertension
Hyperlipidemia
Cough variant asthma- on BREO
Follows up with Dr. Nick
Last visit 03/25/2024: He was advised to make an appointment with cardiology.
Obstructive sleep apnea
Obesity
Assessment and plan:
Postoperative day 1 status post CABG
On low rate supplemental oxygen
Analgesia will continue with narcotics as needed. Currently controlled. Monitor respiratory status close
Incentive spirometry encouraged
Increase activity as tolerated
Anemia noted-no evidence of acute bleeding
Follow H&H serially
Hemodynamics -improved, off vasopressors.
Adequate urinary output and renal function
-
This morning with paroxysmal atrial tachycardia -With a sinus pause.
Cardiology following.
Continue to monitor.
Pacing has been adjusted
Chest tube with no excessive drainage-no air leak.
Chest x-ray reviewed: With no pneumothorax or fluid collections.
Advance as tolerated
Head of the bed elevation
Not bronchospastic on exam
Continue Symbicort instead of BREO.
Follow-up with Dr. Nick in the outpatient setting after discharge.
Glycemic control per protocol
DVT prophylaxis when safe from the surgical perspective.
Patient has been transferred to telemetry
No additional recommendation from the critical care perspective
Sig off
Subjective Dataa
Subjective Data
Date of Service:
Date of Service: April 30, 2024
Chief Complaint: Primary Care Nurse Follow Up (Status postcoronary artery bypass)
Subjective:
He offers no new complaints
He is extubated on low rate supplemental oxygen
Sitting out of bed.
Review of Systems
General: Fever (n)
Cardiopulmonary: Dyspnea (none at rest)
GI: Abdominal Pain (n) and Nausea (n)
Objective Data
Data Reviewed
Vital Signs / I&O / Oxygen:
Vital Signs
Temp Pulse Resp BP Pulse Ox
100.0 F 71 22 120/82 95
04/30/24 11:45 04/30/24 13:10 04/30/24 11:45 04/30/24 12:00 04/30/24 11:50
Intake and Output
04/29/24 04/30/24 05/01/24
06:59 06:59 06:59
Intake Total 300 / 300 540.3 / 560.9 93.5 / 93.5
Output Total 1120 / 1165 285 / 285
Balance 300 / 300 -579.7 / -604.1 -191.5 / -191.5
SaO2 [CPAP] 95
SaO2 [SIMV] 91
SaO2 95
Nasal Cannula flow liters per 6
minute
Physical Exam
General: Respiratory Distress (n)
HEENT: Normocephalic
Cardiovascular: S1-S2
Respiratory: Clear and Non-Labored Respirations
GI: Soft and Distended (obese)
Neurology: Awake, Alert, AO x 3 and No Motor Deficits
Labs/Micro/Reports
Lab Data
04/30/24 03:01
04/30/24 03:01
Laboratory Results
04/29/24 04/29/24 04/29/24
14:39 16:47 17:59
PT 16.3 H
INR 1.30
APTT 38.5 H
pH 7.35 7.31 L 7.33 L
pCO2 47 47 46
pO2 82 L 117 H 90
HCO3 25.9 23.7 24.3
O2 Delivery Level
04/29/24
19:43
PT
INR
APTT
pH 7.37
pCO2 45
pO2 88
HCO3 26.0
O2 Delivery Level
--- NOTE | 2024-04-30 18:31 | W.PN.URO.CBU ---
Today's Communication / Plan
-
remove esqueda am enciurage fluids if clots
Assessment / Plan
-
hold anticoagulant remove foly am and if ok with cardiology encouafe fluids
Diagnosis
-
Date of Service: April 30, 2024
-
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
Post Op Day:
Subjective
-
slow stream preop now gross hmaturia
Objective
-
Vital Signs
Temp Pulse Resp BP Pulse Ox
99.4 F 74 18 106/70 98
04/30/24 16:01 04/30/24 16:50 04/30/24 16:01 04/30/24 15:52 04/30/24 16:25
Intake and Output
04/29/24 04/30/24 05/01/24
06:59 06:59 06:59
Intake Total 300 / 300 540.3 / 560.9 613.5 / 613.5
Output Total 1120 / 1165 565 / 565
Balance 300 / 300 -579.7 / -604.1 48.5 / 48.5
Intake:
Oral fluids 300 / 300 520 / 520
IV fluids (Total) 440.3 / 460.9 93.5 / 93.5
CORDIS 160 / 170 60 / 60
INSULIN 32.1 / 32.7 3.5 / 3.5
LEVO 60.1 / 60.1 0 / 0
PRECEDEX 28.1 / 28.1
VIP 160 / 170 30 / 30
IV piggybacks 100 / 100
Output:
Multi-Chest Tube to Single 580 / 610 345 / 345
Drain Output
Left Pleural Right Pleural 250 / 260 155 / 155
Mediastinal x2 330 / 350 190 / 190
Urine, Esqueda 540 / 555 220 / 220
Other:
Number of approximated MODERATE 1
amounts of urine
Laboratory Results
04/30/24 03:01
04/30/24 03:01
Review of Systems
-
: Bleeding
Physical Exam
-
General - well developed, well nourished, no acute distress
Chest - clear bilaterally
Abdomen - soft, non-tender, positive bowel sounds, no CVAT, no incisional pain or distention
Genitalia - normal
Rectal - normal
Skin - warm & dry with no rash
Neuro - AOx3, no motor deficits
Extremities - no clubbing, no cyanosis, no edema
Incision - clean, dry
Dressing - clean, dry, intact
Care Review
Data Reviewed
Discussed with: Nursing and Family
[2024-04-30] MEDS: TYLENOL 650 MG PO (18:43)
[2024-04-30] MEDS: SYMBICORT 160/4.5 MCG INHALER INH (19:45)
[2024-04-30] MEDS: INSPRA 75 MG PO (21:16)
[2024-04-30] MEDS: MUCINEX 600 MG PO (21:17)
[2024-04-30] MEDS: MAGNESIUM OXIDE 500 MG PO (21:19)
[2024-04-30] MEDS: CLARITIN 10 MG PO (21:19)
[2024-04-30] MEDS: CARDURA 4 MG PO (21:20)
[2024-04-30] MEDS: SINGULAIR 10 MG PO (21:20)
[2024-04-30] MEDS: REGLAN 10 MG PO (21:21)
[2024-05-01] VITALS (16 sets, daily range): BP systolic 113–159; BP diastolic 60–91; PULSE 76; O2SAT 94–96; BMI 38.7
[2024-05-01] MEDS: TYLENOL 1000 MG PO ×3 (05:50→23:09)
[2024-05-01] MEDS: ROXICODONE 5 MG PO (05:50)
[2024-05-01 06:10] LABS: Hematocrit 32.2 % (39.0-52.0); Mean Corp Hgb Conc. 34.2 g/dL (33.0-37.0); Mean Corpuscular Hgb 31.3 pg (27.0-31.0); Mean Corpuscular Volume 91.7 fL (80.0-94.0); Mean Platelet Volume 10.5 fL (7.4-10.4); Platelet Count 128 10^3/uL (130-400); Red Blood Cell Count 3.51 10^6/uL (4.70-6.10); Red Cell Dist. Width 13.4 % (11.5-14.5); White Blood Cell Count 12.4 10^3/uL (4.8-10.8)
[2024-05-01 06:33] LABS: Blood Urea Nitrogen 29 mg/dl (9-20); Calcium 8.6 mg/dl (8.4-10.2); Carbon Dioxide 28 mmol/L (22-30); Chloride 104 mmol/L (98-107); Estimated Creatinine Clearance 88 ml/min; Glucose 123 mg/dl (70-99); Potassium 4.5 mmol/L (3.5-5.1); Sodium 138 mmol/L (135-145); eGFR > 60.00
--- NOTE | 2024-05-01 07:05 | W.PN.CT ---
Today's Communication / Plan
-
-pod #2
-no issues overnight
-in nsr 80s, no pito or pauses. Lopressor restarted last night. Holding Amio. Appreciate EP input
-maintain pw
-Plavix held d/t hematuria. Noted recommendation to remove Calzada in am. Appreciate Urology input
-CT output: 2 meds 80/270, 2 pleur 80/235 in 12 /24 hrs
-current meds (ASA, Zetia, Cardura, Inspra, Protonix). Intolerance of statins
-encourage IS, OOB
Assessment / Plan
-
-Mv-CAD - s/p CABG x 3 (GONZALEZ to LAD, GSV to OM, GSV to RPDA) by Dr. Martinez on 04/29/24, pod #2
- Intraop ARIS: normal biventricular function, unchanged from prior
- Pt. w/ bradycardia sinus rhythm in the 40s under GA. Required V-pacing initially, regained NSR w/ BBB in 70s
- HTN/HLD
- Class 2 obesity (BMI 38)
- Pre-existing RBBB
- ASUNCION, not on CPAP
- Asthma
- COPD
- Former smoker
- EtOH daily (beer or wine)
- Scattered R sided pulmonary nodules upto 1.3cm on chest CT 04/28/24
- R adrenal adenoma 1.9 cm
- Acute postop bifascicular block (new RBBB and LAFB) with bradycardia, requiring pacing briefly postop - will hold BB and Amio
- Acute postop blood loss anemia
- Acute postop hypovolemia with subsequent hypervolemia
- Acute postop atelectasis
- Acute postop hematuria
- Brief SVT 160s on 04/30, followed by V-pacing @60 bpm
Discussed patient care with: Nursing and Care Team
Subjective
Procedure
- s/p CABG x 3 (GONZALEZ to LAD, GSV to OM, GSV to RPDA) by Dr. Martinez on 04/29/24
-
Date of Service: May 01, 2024
Objective Data
-
PT 16.3 Sec (11.4-14.6) H 04/29/24 14:39
INR 1.30 04/29/24 14:39
APTT 38.5 Sec (23.4-35.0) H 04/29/24 14:39
Vital Signs
Vital Signs
Temp Pulse Resp BP Pulse Ox
99.4 F 80 18 118/67 97
04/30/24 16:01 04/30/24 21:19 04/30/24 16:01 04/30/24 21:19 04/30/24 20:00
CT Intake/Output/Weight
04/30/24 04/30/24 05/01/24
06:59 18:59 06:59
Intake Total 414.9 / 560.9 613.5 / 613.5
Output Total 655 / 1165 565 / 565
Balance -240.1 / -604.1 48.5 / 48.5
SaO2: 97
Physical Exam
-
General: Awake and AOx3
Cardiovascular: Regular rate & rhythm, No Murmurs and Rub
Respiratory: Decreased Breath Sounds
Sternum: Stable
Incision: Clean, Dry and Dressing Intact
Extremities: Edema +1 (2+ DP b/l)
Data Reviewed
-
Lab Results: Results Reviewed
Medications: Active Meds Reviewed
Chest X-Ray: Report Reviewed and Image Reviewed
ECG: Report Reviewed and Image Reviewed
--- NOTE | 2024-05-01 07:49 | W.PN.CARDCBS ---
Addendum entered and electronically signed by Naveen Stack MD 05/01/24 10:54:
Attending addendum: Patient seen and examined. PA note reviewed and findings confirmed by me. He is feeling reasonably well using incentive spirometer. Chest tubes will likely be removed later. Increasing mobilization. Overall he is doing well
post op and we will continue to follow.
Original Note:
Today's Communication / Plan
-
Continue post op care
Follow on tele
Impression / Plan
-
PCP: Dr. Guy
Cardiology: Dr. CARLITO Lomax, last seen 12/2022
Nephrology: Dr. Lees
Impression:
Chest pain and GROSS on admission with serially undetectable Troponin 04/27/24
CAD
multivessel CAD by cath 04/28/24
s/p CABG with ENRIQUEZ to LAD, SVG to OM and SVG to RPDA 04/29/24
Atrial tachycardia
HTN
Untreated hyperlipidemia due to statin intolerance and patient refusal of PCSK9 inhibitor meds
Mild by echo 06/2022
Morbid obese
cRBBB
LAFB
Echo 06/22/22: EF 70-75%, mild conc LVH, mild peak/mean 20/10 mmHg and NICKY 2.0 cm sq
Echo 04/27/24: EF 65 to 70%, moderate concentric LVH, mild with peak/mean 16/10 mmHg and NICKY 1.7 cm sq, no aortic insufficiency
Plan:
-Patient is s/p ENRIQUEZ to LAD, SVG to OM and SVG to RPDA 04/29/24.
-Seen this AM, feeling well. Does have some soreness around his under arms. No chest pain.
-No further atrial tachycardia noted on review of telemetry. Amio remains on hold, lopressor restarted. Continue to follow.
-Urology following as patient has had some hematuria noted. Calzada removed this AM.
-Continue aspirin and plavix.
-BP stable, continue eplerenone, doxazosin.
-LDL 159 on admission. Patient was not taking a statin prior to admission and says he is intolerant to Fenofibrate due to joint pain, atorvastatin caused him to have joint pain and feel sluggish, simvastatin caused joint pain and fatigue. Patient
refused to consider PCSK9 inhibitors before. Will need to have ongoing discussions about the repercussions of an untreated LDL of 159 and known CAD. 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
-Patient reported some hematuria yesterday. Follow today. Hgb stable at 12.1.
-Continue post op care, IS.
HPI: Patient came to [facility] today with chest pain and GROSS and cardiology has been consulted. Patient last saw Dr. Lomax in the office 12/07/22 and complained of chest pain and GROSS, but had previously completed a Lexiscan mibi 09/17/22 that showed a small
area of mildly decreased perfusion that was fixed in the mid inferior and apical inferior and partially improved with prone imaging. When patient complained of recurrent symptoms at the 12/07/22 office visit he was recommended PCSK9 inhibitor for
untreated hyperlipidemia and a coronary calcium score, but he declined and did not come back to the office. Patient says that since the beginning of the summer he has had a rapid deterioration in his activity levels due to exertional intolerance. He
describes chest pain from shoulder to shoulder and GROSS when he walks more than 10 yards. He says that if he tries to complete too much activity that he vomits. No resting chest pain or GROSS. No substernal pain and no radiation to his neck or jaw. He
has experience similar symptoms for more than 1 year, but happening at lower levels of activity now. Patient with chronic LE edema that has been present for months. He says edema is there even in the morning when he wakes up. He also complains of
bloating and at one point had lost 10 lbs, but then gained the weight back quickly and has not gained any additional weight. He says that despite this he thinks his pants are looser at the waist than before. He has HTN that is managed by Nephrology
using Cardura, eplerenone and losartan. His resting BP is 150/88 in the ER and he has similar readings at home. He also has a h/o mild by last echo almost 2 years ago. Patient says that he has described his symptoms to family members who are
physicians and also to friends and they all feel that he has CAD and that he needs a stent so this is the reason he came to [facility] today and not months ago.
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
Subjective
Date of Service: May 01, 2024
Feeling well overall. Does note some underarm pain.
Objective
Labs:
05/01/24 05:44
05/01/24 05:44
Labs
Hgb 11.0 g/dL (13.0-18.0) L 05/01/24 05:44
Hct 32.2 % (39.0-52.0) L 05/01/24 05:44
Plt Count 128 10^3/uL (130-400) L 05/01/24 05:44
PT 16.3 Sec (11.4-14.6) H 04/29/24 14:39
INR 1.30 04/29/24 14:39
APTT 38.5 Sec (23.4-35.0) H 04/29/24 14:39
Sodium 138 mmol/L (135-145) 05/01/24 05:44
Potassium 4.5 mmol/L (3.5-5.1) 05/01/24 05:44
BUN 29 mg/dl (9-20) H 05/01/24 05:44
Creatinine 1.0 mg/dL (0.7-1.3) 05/01/24 05:44
Glucose 123 mg/dl (70-99) H 05/01/24 05:44
Troponins
04/28/24
07:51
Troponin I 0.028
Vital Signs and I&O:
Vital Signs
Temp Pulse Resp BP Pulse Ox
98.9 F 83 19 139/83 95
05/01/24 07:37 05/01/24 07:37 05/01/24 07:37 05/01/24 07:37 05/01/24 07:37
Vital Signs
Temp Pulse Resp BP Pulse Ox
98.9 F 83 19 139/83 95
05/01/24 07:37 05/01/24 07:37 05/01/24 07:37 05/01/24 07:37 05/01/24 07:37
Intake & Output
04/29/24 04/30/24 05/01/24 05/02/24
06:59 06:59 06:59 06:59
Intake Total 300 / 300 540.3 / 560.9 613.5 / 613.5
Output Total 1120 / 1165 1575 / 1575
Balance 300 / 300 -579.7 / -604.1 -961.5 / -961.5 -5 / -5
Physical Exam
Physical Exam
GEN: Awake, alert, oriented x3. NAD
HEENT: MMM
LUNGS: CTA b/l, no
CV: Reg, no murmur
EXT: No clubbing or cyanosis, trace b/l LE edema
SKIN: Warm, dry, no rash
[2024-05-01] MEDS: TYLENOL PO (08:00)
--- NOTE | 2024-05-01 08:00 | PTCARENOTE ---
Patient received from previous RN. Patient OOB on commode attempting to have a BM, passing gas but none at this time. Patient placed back in chair with asst x 2. RIJ Cordis intact, running KVO. AOx4, NSR on telemetry, HR 70's, +1 LE edema, HRR. V
wires in place, pacer off. Patient on 3LNC, lungs diminished, encouraged to use IS while awake. CTx4 dressing CDI, suction to wall. No current complaints of nausea, abdomen obese, + BS. Patient due to void at 1200. RLE hematoma tender, ecchymotic,
site approximated. R groin intact, old drainage. No further needs assessed at this time, call lanier within reach.
[2024-05-01] MEDS: LASIX 40 MG IV (08:06)
[2024-05-01] MEDS: ZETIA 10 MG PO (08:06)
[2024-05-01] MEDS: MUCINEX 600 MG PO ×2 (08:06→19:49)
[2024-05-01] MEDS: ZINC SULFATE 220 MG PO (08:06)
[2024-05-01] MEDS: VITAMIN D3 (cholecalciferol) 100 MCG PO (08:07)
[2024-05-01] MEDS: LOW STRENGTH ASPIRIN 81 MG PO (08:07)
[2024-05-01] MEDS: MAGNESIUM OXIDE 500 MG PO ×2 (08:07→19:49)
[2024-05-01] MEDS: REGLAN 10 MG PO ×3 (08:07→16:30)
[2024-05-01] MEDS: LOPRESSOR 12.5 MG PO ×2 (08:07→19:49)
[2024-05-01] MEDS: PROTONIX 40 MG PO (08:07)
[2024-05-01] MEDS: SENOKOT-S 1 TABLET PO ×3 (08:07→23:08)
[2024-05-01] MEDS: NEURONTIN 100 MG PO ×3 (08:07→23:08)
[2024-05-01] MEDS: VITAMIN C 500 MG PO (08:08)
[2024-05-01] MEDS: PLAVIX 75 MG PO (08:08)
[2024-05-01] MEDS: BACTROBAN 2% OINTMENT 1 APPLIC NASAL ×2 (08:08→19:51)
[2024-05-01] MEDS: VITAMIN B-12 500 MCG PO (08:08)
[2024-05-01] MEDS: LIDOCAINE 4% PATCH 1 PATCH TOPICAL (08:08)
[2024-05-01] MEDS: SYMBICORT 160/4.5 MCG INHALER INH (08:20)
--- NOTE | 2024-05-01 11:34 | PTCARENOTE ---
Patient ambulated in the jason with cardiac rehab and RNs. Tolerated, reported some increased pain. Patient helped back into bed. CT x4 removed, sutures tied, scant sanguinous drainage. V wires insulated as well. Patient encouraged to rest. Call lanier
within reach.
--- NOTE | 2024-05-01 13:08 | W.PN.URO.CBU ---
Today's Communication / Plan
-
reinsert gfoley if pain distentsion or no void by 6pm
Assessment / Plan
-
hold anticoagulant remove foly am and if ok with cardiology encourage fluids will reinsert esqueda if distensionAlso prefer holdng anticoagiulants as long as safely possible
Diagnosis
-
Date of Service: May 01, 2024
-
Patient Diagnosis:
Post Op Day:
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
Post Op Day:
Subjective
-
esqueda out not yet voiding
Objective
-
Vital Signs
Temp Pulse Resp BP Pulse Ox
98.0 F 82 18 137/79 96
05/01/24 12:21 05/01/24 12:21 05/01/24 12:21 05/01/24 12:21 05/01/24 12:21
Intake and Output
04/30/24 05/01/24 05/02/24
06:59 06:59 06:59
Intake Total 540.3 / 560.9 613.5 / 613.5
Output Total 1120 / 1165 1575 / 1575
Balance -579.7 / -604.1 -961.5 / -961.5 -5 / -5
Intake:
Oral fluids 520 / 520
IV fluids (Total) 440.3 / 460.9 93.5 / 93.5
CORDIS 160 / 170 60 / 60
INSULIN 32.1 / 32.7 3.5 / 3.5
LEVO 60.1 / 60.1 0 / 0
PRECEDEX 28.1 / 28.1
VIP 160 / 170
IV piggybacks 100 / 100
Output:
Multi-Chest Tube to Single 580 / 610 505 / 505
Drain Output
Left Pleural Right Pleural 250 / 260 235 / 235
Mediastinal x2 330 / 350 270 / 270
Urine, Esqueda 540 / 555 1070 / 1070
Laboratory Results
05/01/24 05:44
05/01/24 05:44
Review of Systems
-
: Difficulty Voiding and Bleeding
Physical Exam
-
General - well developed, well nourished, no acute distress
Chest - clear bilaterally
Abdomen - soft, non-tender, positive bowel sounds, no CVAT, no incisional pain or distention
Genitalia - normal
Rectal - normal
Skin - warm & dry with no rash
Neuro - AOx3, no motor deficits
Extremities - no clubbing, no cyanosis, no edema
Incision - clean, dry
Dressing - clean, dry, intact
Care Review
Data Reviewed
Discussed with: Nursing
[2024-05-01] MEDS: NSS IV (14:05)
--- NOTE | 2024-05-01 14:18 | CM ---
CM following for DC planning needs.
Met w/ patient at bedside. Patient is POD#2 from CABG. He is feeling okay.
Reviewed post op MD appointments, Cardiac Rehab and visit from [facility] Transitional Care RN.
Anticipated DC plan is for home w/ [facility] Transitional [facility] RN.
CM to cont. to follow for any needs that may arise.
[2024-05-01] MEDS: NSS 500 IV (17:44)
--- NOTE | 2024-05-01 20:46 | PTCARENOTE ---
Assumed care of patient at 1900. Patient found asleep in bed at time of assessment. Patient is AOx4, follows commands appropriately, moves all extremities. Respirations are shallow and lung sounds are diminished patient has an saO2 of 96% on 2L O2.
Heart sounds have a regular rate and rhythm, patient is SR with BBB on the monitor, patient has normal palpable pulses, and +1 BLE edema. Patient has round obese firm abdomen with active BS in all four quadrants. Patient had difficulty voiding today
following esqueda removal, new esqueda catheter placed by genna draining clear yellow urine at this time. Patient has sternal incision with aquacell dressing that is CDI, an ABD dressing over CT wounds that is CDI, a R groin puncture approx with surg
adhesive MAINTENANCE FITTER, and R knee incision approx with surg adhesive TAL. Patient has R IJ cordis receiving KVO at this time. No c/o pain. VSS.
[2024-05-01] MEDS: INSPRA 75 MG PO (23:07)
[2024-05-01] MEDS: CLARITIN 10 MG PO (23:07)
[2024-05-01] MEDS: CARDURA 4 MG PO (23:09)
[2024-05-01] MEDS: SINGULAIR 10 MG PO (23:10)
[2024-05-02] VITALS (25 sets, daily range): BP systolic 103–153; BP diastolic 68–120; PULSE 80–87; O2SAT 94–97; BMI 38.4
--- NOTE | 2024-05-02 00:15 | PTCARENOTE ---
Patient reassessed. VSS. Remains SR with BBB on the monitor. While administering meds at HS patient informed this RN that they have a bad reaction to flexeril. Per patient 'If you give me flexeril I will go into cardiac arrest'. Notified CT PA.
Medication discontinued.
--- NOTE | 2024-05-02 01:01 | W.PN.CT ---
Today's Communication / Plan
-
Plan:
-No major issues overnight. Hemodynamically and neurologically intact
-No further bradycardia, tolerating resumption of Lopressor
-No further hematuria, tolerating plavix
-Calzada reinserted 05/01/24 for postop urinary retention. Urology following
-D/C cordis
-current meds (ASA, Plavix, Zetia, Cardura, Inspra, Protonix). Intolerant of statins
-encourage IS, OOB
-Ambulate
-Will cut temporary PW prior to d/c home
-Home in 1-2 days
Assessment / Plan
-
-Mv-CAD - s/p CABG x 3 (GONZALEZ to LAD, GSV to OM, GSV to RPDA) by Dr. Martinez on 04/29/24, pod #3
- Intraop ARIS: normal biventricular function, unchanged from prior
- Pt. w/ bradycardia sinus rhythm in the 40s under GA. Required V-pacing initially, regained NSR w/ BBB in 70s
- HTN/HLD
- Preop bradycardia in 40's
- Pre-existing RBBB
- ASUNCION, not on CPAP
- Class 2 obesity (BMI 38.7)
- Prediabetes (A1C 5.9)
- Asthma
- COPD
- Former smoker
- EtOH daily (beer or wine)
- Scattered R sided pulmonary nodules upto 1.3cm on chest CT 04/28/24
- R adrenal adenoma 1.9 cm
- Acute postop bifascicular block (new RBBB and LAFB) with bradycardia, requiring pacing briefly postop - will hold BB and Amio
- Acute postop blood loss anemia
- Acute postop hypovolemia with subsequent hypervolemia
- Acute postop atelectasis
- Acute postop hematuria
- Acute postop urinary retention
- Brief SVT 160s on 04/30, followed by V-pacing @60 bpm
Discussed patient care with: Cardiology, Nursing, Respiratory Therapy, Pharmacy and Care Team
Subjective
Procedure
- s/p CABG x 3 (GONZALEZ to LAD, GSV to OM, GSV to RPDA) by Dr. Martinez on 04/29/24
-
Date of Service: May 02, 2024
Pt c/o mild incisional pain, otherwise feels well
Objective Data
-
PT 16.3 Sec (11.4-14.6) H 04/29/24 14:39
INR 1.30 04/29/24 14:39
APTT 38.5 Sec (23.4-35.0) H 04/29/24 14:39
Vital Signs
Vital Signs
Temp Pulse Resp BP Pulse Ox
99.2 F 80 18 132/87 96
05/01/24 23:00 05/01/24 23:16 05/01/24 23:00 05/01/24 23:16 05/01/24 23:00
CT Intake/Output/Weight
05/01/24 05/01/24 05/02/24
06:59 18:59 06:59
Intake Total 50 / 100 50 / 100
Output Total 1010 / 1575 1265 / 1540 275 / 1540
Balance -1010 / -961.5 -1215 / -1440 -225 / -1440
SaO2: 96 (2L)
Physical Exam
-
General: Awake, Oriented and AOx3
Cardiovascular: Regular rate & rhythm, No Murmurs, No Rub and No Gallop
Respiratory: Decreased Breath Sounds
Sternum: Stable
Incision: Clean, Dry, Intact and Dressing Intact
Extremities: Other (+trace edema)
Data Reviewed
-
Lab Results: Results Reviewed
Medications: Active Meds Reviewed
Chest X-Ray: Report Reviewed and Image Reviewed
ECG: Report Reviewed and Image Reviewed
[2024-05-02 04:58] LABS: Hematocrit 30.8 % (39.0-52.0); Hemoglobin 10.5 g/dL (13.0-18.0); Mean Corp Hgb Conc. 34.1 g/dL (33.0-37.0); Mean Corpuscular Hgb 31.3 pg (27.0-31.0); Mean Corpuscular Volume 91.9 fL (80.0-94.0); Mean Platelet Volume 10.1 fL (7.4-10.4); Platelet Count 140 10^3/uL (130-400); Red Blood Cell Count 3.35 10^6/uL (4.70-6.10); Red Cell Dist. Width 13.2 % (11.5-14.5); White Blood Cell Count 10.8 10^3/uL (4.8-10.8)
--- NOTE | 2024-05-02 04:59 | PTCARENOTE ---
Patient reassessed. VSS. No c/o pain. Good UOP via Calzada maintaining clear yellow/caroline coloration. Remains SR on the monitor. Maintained on 2L O2 via NC. AM labs obtained. AM hygiene care provided.
[2024-05-02 05:19] LABS: Blood Urea Nitrogen 31 mg/dl (9-20); Calcium 8.4 mg/dl (8.4-10.2); Carbon Dioxide 30 mmol/L (22-30); Chloride 101 mmol/L (98-107); Estimated Creatinine Clearance 109 ml/min; Glucose 100 mg/dl (70-99); Magnesium 2.3 mg/dl (1.6-2.3); Potassium 4.1 mmol/L (3.5-5.1); Sodium 138 mmol/L (135-145); eGFR > 60.00
[2024-05-02] MEDS: TYLENOL 1000 MG PO ×3 (07:33→23:03)
[2024-05-02] MEDS: NON-FORMULARY ITEM 1 INH INH (08:08)
--- NOTE | 2024-05-02 08:08 | PTCARENOTE ---
Received pt from principal systems architect RN; pt AAOx3 and resting comfortably in chair; NSR on monitor and VSS; Epicardial V wire insulated; RIJ cordis patent; lungs diminished; IS to 750; positive bowel sounds and pt reports flatus; Calzada Catheter draining
yellow urine with sediment; palpable pulses throughout; no edema noted; surgical sites C/D/I; see nursing documentation for further details.
[2024-05-02] MEDS: VITAMIN C 500 MG PO (08:23)
[2024-05-02] MEDS: MAGNESIUM OXIDE 500 MG PO ×2 (08:23→19:32)
[2024-05-02] MEDS: MUCINEX 600 MG PO ×2 (08:24→19:32)
[2024-05-02] MEDS: LOPRESSOR 12.5 MG PO (08:24)
[2024-05-02] MEDS: PROTONIX 40 MG PO (08:24)
[2024-05-02] MEDS: SENOKOT-S 1 TABLET PO ×3 (08:24→23:03)
[2024-05-02] MEDS: VITAMIN D3 (cholecalciferol) 100 MCG PO (08:24)
[2024-05-02] MEDS: ZETIA 10 MG PO (08:25)
[2024-05-02] MEDS: NEURONTIN 100 MG PO ×3 (08:25→23:02)
[2024-05-02] MEDS: LIDOCAINE 4% PATCH 1 PATCH TOPICAL (08:25)
[2024-05-02] MEDS: VITAMIN B-12 500 MCG PO (08:25)
[2024-05-02] MEDS: ZINC SULFATE 220 MG PO (08:25)
[2024-05-02] MEDS: REGLAN 10 MG PO ×3 (08:25→16:18)
[2024-05-02] MEDS: BACTROBAN 2% OINTMENT 1 APPLIC NASAL ×2 (08:26→19:32)
[2024-05-02] MEDS: LOW STRENGTH ASPIRIN 81 MG PO (08:27)
[2024-05-02] MEDS: PLAVIX 75 MG PO (08:34)
--- NOTE | 2024-05-02 10:12 | W.PN.CARDCBS ---
Today's Communication / Plan
-
Continue usual postop care.
Continue negative volume status
Telemetry stable
Impression / Plan
-
PCP: Dr. Guy
Cardiology: Dr. CARLITO Lomax, last seen 12/2022
Nephrology: Dr. Lees
Impression:
Chest pain and GROSS on admission with serially undetectable Troponin 04/27/24
CAD
multivessel CAD by cath 04/28/24
s/p CABG with ENRIQUEZ to LAD, SVG to OM and SVG to RPDA 04/29/24
Atrial tachycardia
HTN
Untreated hyperlipidemia due to statin intolerance and patient refusal of PCSK9 inhibitor meds
Mild by echo 06/2022
Morbid obese
cRBBB
LAFB
Sleep apnea
Echo 06/22/22: EF 70-75%, mild conc LVH, mild peak/mean 20/10 mmHg and NICKY 2.0 cm sq
Echo 04/27/24: EF 65 to 70%, moderate concentric LVH, mild with peak/mean 16/10 mmHg and NICKY 1.7 cm sq, no aortic insufficiency
Plan:
-Patient is s/p ENRIQUEZ to LAD, SVG to OM and SVG to RPDA 04/29/24.
-Pain is controlled. Some edema noted.
-Telemetry stable with no atrial arrhythmias/bradycardia overnight
-Atrial tachycardia previously. Amio remains on hold, continues on Lopressor.
-Urology following. Calzada in place. As patient has had some hematuria noted. Calzada catheter removed and then replaced.
-Continue aspirin and plavix.
-BP stable, continue eplerenone, doxazosin.
-LDL 159 on admission. Patient was not taking a statin prior to admission and says he is intolerant to Fenofibrate due to joint pain, atorvastatin caused him to have joint pain and feel sluggish, simvastatin caused joint pain and fatigue. Patient
refused to consider PCSK9 inhibitors before. Will need to have ongoing discussions about the repercussions of an untreated LDL of 159 and known CAD. 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
-Continue post op care, IS.
-Edema noted maintaining negative fluid balance overnight.
HPI: Patient came to [facility] today with chest pain and GROSS and cardiology has been consulted. Patient last saw Dr. Lomax in the office 12/07/22 and complained of chest pain and GROSS, but had previously completed a Lexiscan mibi 09/17/22 that showed a small
area of mildly decreased perfusion that was fixed in the mid inferior and apical inferior and partially improved with prone imaging. When patient complained of recurrent symptoms at the 12/07/22 office visit he was recommended PCSK9 inhibitor for
untreated hyperlipidemia and a coronary calcium score, but he declined and did not come back to the office. Patient says that since the beginning of the summer he has had a rapid deterioration in his activity levels due to exertional intolerance. He
describes chest pain from shoulder to shoulder and GROSS when he walks more than 10 yards. He says that if he tries to complete too much activity that he vomits. No resting chest pain or GROSS. No substernal pain and no radiation to his neck or jaw. He
has experience similar symptoms for more than 1 year, but happening at lower levels of activity now. Patient with chronic LE edema that has been present for months. He says edema is there even in the morning when he wakes up. He also complains of
bloating and at one point had lost 10 lbs, but then gained the weight back quickly and has not gained any additional weight. He says that despite this he thinks his pants are looser at the waist than before. He has HTN that is managed by Nephrology
using Cardura, eplerenone and losartan. His resting BP is 150/88 in the ER and he has similar readings at home. He also has a h/o mild by last echo almost 2 years ago. Patient says that he has described his symptoms to family members who are
physicians and also to friends and they all feel that he has CAD and that he needs a stent so this is the reason he came to [facility] today and not months ago.
Progress Note - Candy [employer]
Subjective
Date of Service: May 02, 2024
Pain is controlled. Some edema noted. Breathing is stable.
Objective
Labs:
05/02/24 04:34
05/02/24 04:34
Labs
Hgb 10.5 g/dL (13.0-18.0) L 05/02/24 04:34
Hct 30.8 % (39.0-52.0) L 05/02/24 04:34
Plt Count 140 10^3/uL (130-400) 05/02/24 04:34
PT 16.3 Sec (11.4-14.6) H 04/29/24 14:39
INR 1.30 04/29/24 14:39
APTT 38.5 Sec (23.4-35.0) H 04/29/24 14:39
Sodium 138 mmol/L (135-145) 05/02/24 04:34
Potassium 4.1 mmol/L (3.5-5.1) 05/02/24 04:34
BUN 31 mg/dl (9-20) H 05/02/24 04:34
Creatinine 0.8 mg/dL (0.7-1.3) 05/02/24 04:34
Glucose 100 mg/dl (70-99) H 05/02/24 04:34
Vital Signs and I&O:
Vital Signs
Temp Pulse Resp BP Pulse Ox
98.8 F 89 16 117/74 94
05/02/24 08:00 05/02/24 08:24 05/02/24 08:11 05/02/24 08:24 05/02/24 09:25
Vital Signs
Temp Pulse Resp BP Pulse Ox
98.8 F 89 16 117/74 94
05/02/24 08:00 05/02/24 08:24 05/02/24 08:11 05/02/24 08:24 05/02/24 09:25
Intake & Output
04/30/24 05/01/24 05/02/24 05/03/24
06:59 06:59 06:59 06:59
Intake Total 540.3 / 560.9 613.5 / 613.5 140 / 140 40 / 40
Output Total 1120 / 1165 1575 / 1575 1780 / 1780
Balance -579.7 / -604.1 -961.5 / -961.5 -1640 / -1640 /
Physical Exam
Physical Exam
General: Well developed, well nourished in NAD.
Neck: Right IJ line
Heart: Distant heart sounds regular
Lungs: Decreased at the bases bilateral
Abdomen: Protuberant
Extremities: No clubbing, cyanosis and +1 edema bilaterally.
Neuro: Grossly nonfocal, awake, alert
[2024-05-02] MEDS: LASIX 20 MG IV ×2 (11:14→14:23)
--- NOTE | 2024-05-02 12:50 | W.PN.URO.CBU ---
Today's Communication / Plan
-
Maintain Calzada catheter on d/c
Advise outpatient voiding trial coordinated by [facility] (for removal) and our office (for PVR bladder scan)
Continue doxazosin
D/w patient.
D/w [id number] at bedside.
D/w RN.
Assessment / Plan
-
Recurrent post-op urinary retention - large volume (>1000 cc)
H/o BPH on doxazosin
Hematuria - resolved
Diagnosis
-
Date of Service: May 02, 2024
-
Patient Diagnosis:
Hematuria
Acute urinary retention
H/o BPH on doxazosin
Subjective
-
Calzada catheter re-inserted due to recurrent urinary retention 05/01.
Clear UOP in tubing.
Objective
-
Vital Signs
Temp Pulse Resp BP Pulse Ox
98.8 F 89 16 117/74 94
05/02/24 08:00 05/02/24 08:24 05/02/24 08:11 05/02/24 08:24 05/02/24 09:25
Intake and Output
05/01/24 05/02/24 05/03/24
06:59 06:59 06:59
Intake Total 613.5 / 613.5 140 / 140 40 / 40
Output Total 1575 / 1575 1780 / 1780 600 / 600
Balance -961.5 / -961.5 -1640 / -1640 -560 / -560
Intake:
Oral fluids 520 / 520
IV fluids (Total) 93.5 / 93.5 140 / 140 40 / 40
CORDIS 60 / 60 140 / 140 40 / 40
INSULIN 3.5 / 3.5
LEVO 0 / 0
VIP
Output:
Multi-Chest Tube to Single 505 / 505
Drain Output
Left Pleural Right Pleural 235 / 235
Mediastinal x2 270 / 270
Urine, Calzada 1070 / 1070 765 / 765 600 / 600
Straight cath output 1000 / 1000
Laboratory Results
05/02/24 04:34
05/02/24 04:34
Physical Exam
-
General - well developed, well nourished, no acute distress
Abdomen - soft, non-tender, non-tender
Genitalia - normal, Calzada catheter w/ clear UOP
Skin - warm & dry with no rash
Neuro - AOx3, no motor deficits
Extremities - no clubbing, no cyanosis, no edema
Care Review
Data Reviewed
Discussed with: Cardiology, Nursing and Family
Total Time Spent with Patient (in minutes): 30
--- NOTE | 2024-05-02 13:14 | PTCARENOTE ---
Assessment unchanged; NSR on monitor and VSS; pt ambulated hallways and resting comfortably in chair.
--- NOTE | 2024-05-02 16:48 | PTCARENOTE ---
NSR on monitor and VSS; assessment unchanged; pt resting comfortably in bed.
--- NOTE | 2024-05-02 18:34 | PTCARENOTE ---
nurse monitoring alarmed HR 130-150s; pt symptomatic and diaphoretic; EKG preformed and resulted A-fib with RVR; P Murt CVPA notified, new orders being placed for IV Lopressor and Amiodarone bolus and drip.
[2024-05-02] MEDS: LOPRESSOR 5 MG IV ×2 (18:41→18:42)
[2024-05-02] MEDS: CORDARONE 103 MG IV (18:43)
[2024-05-02] MEDS: CORDARONE 518 MG IV (18:54)
--- NOTE | 2024-05-02 21:07 | PTCARENOTE ---
Assumed care of patientat 1900. Patient found in bed at time of assessment. Patient is AOx4, follows commands appropriately, moves all extremities. Lung sounds are diminished throughout, respirations are shallow, patient has an saO2 of 97% on RA.
Heart sounds are irregular, patient is Afib with HR ranging form 100s-120s on the monitor, patient has normal palpable pulses and +1 BLE edema with trace edema in the BUE . Patient has active BS in all four quadrants, round obese abdomen. Patient
has esqueda catheter in place draining clear yellow mild amounts of sediment visible in urine. Patient has a sternal incision with aquacell dressing that is CDI, R Groin puncture approx with surg adhesive TAL, and R Knee incision approx with surg
adhesive TAL. Prior to change of shift patient converted to Afib with RVR requiring 2xLopressor 5mg IV, 1 amio bolus, and was started on amio gtt. Patient's cordis is highly positional PIV place in R FA for infusion. However patient accidently
pulled PIV out requiring placement of 20G in L FA. Due to trace edema present in upper extremities site appeared swollen prior to IV insertion. Site has good blood return, no redness, no pain. Will monitor closely for any signs of
infiltration/extravasation. Patient has no c/o pain at this time.
[2024-05-02] MEDS: CARDURA 4 MG PO (23:02)
[2024-05-02] MEDS: INSPRA 75 MG PO (23:03)
[2024-05-02] MEDS: SINGULAIR 10 MG PO (23:03)
[2024-05-02] MEDS: CLARITIN 10 MG PO (23:03)
[2024-05-03] VITALS (35 sets, daily range): BP systolic 82–182; BP diastolic 58–115; PULSE 85–87; O2SAT 96; BMI 38.0
--- NOTE | 2024-05-03 01:00 | PTCARENOTE ---
Patient reassessed. Remains in Afib on the monitor. SBP ranging 90s-120s. Afebrile. Amio gtt decreased to 0.5mg per protocol at 0055.
--- NOTE | 2024-05-03 03:43 | W.PN.CT ---
Today's Communication / Plan
-
Plan:
-No major issues overnight. Hemodynamically and neurologically intact
-No further bradycardia, tolerating resumption of Lopressor. Amiodarone PO has been held d/t postop bradycardia- will start today 05/03/24
-Pt unfortunately went into a-fib with RVR 150's yesterday 05/02 @ 1830 and remains in a-fib this AM. Received IV Lopressor, Amiodarone bolus and started on Amiodarone gtt.
-Will discuss DOAC/NOAC given postop a-fib. [id number] score of 1
-No further hematuria, tolerating plavix
-Esqueda reinserted 05/01/24 for postop urinary retention. Urology following and recommend discharge with esqueda
-D/C cordis, kinked and non-functional
-Replete K+, 3.7
-Monitor hyponatremia, 134. Cont. diuresis, fluid restriction
-Cont. current meds (ASA, Plavix, Zetia, Cardura, Inspra, Protonix). Intolerant of statins
-Encourage IS, OOB
-Ambulate/ PT/OT following and recommend placement to SNF
-Will cut temporary PW prior to d/c home
-Home vs SNF in 1-2 days
Assessment / Plan
-
Assessment:
-Mv-CAD - s/p CABG x 3 (GONZALEZ to LAD, GSV to OM, GSV to RPDA) by Dr. Martinez on 04/29/24, pod #4
- Intraop ARIS: normal biventricular function, unchanged from prior
- Pt. w/ bradycardia sinus rhythm in the 40s under GA. Required V-pacing initially, regained NSR w/ BBB in 70s
- HTN/HLD
- Preop bradycardia in 40's
- Pre-existing RBBB
- ASUNCION, not on CPAP
- Class 2 obesity (BMI 38.7)
- Prediabetes (A1C 5.9)
- Asthma
- COPD
- Former smoker
- EtOH daily (beer or wine)
- Scattered R sided pulmonary nodules upto 1.3cm on chest CT 04/28/24
- R adrenal adenoma 1.9 cm
- Acute postop bifascicular block (new RBBB and LAFB) with bradycardia, requiring pacing briefly postop - will hold BB and Amio
- Acute postop blood loss anemia
- Acute postop hypovolemia with subsequent hypervolemia
- Acute postop atelectasis
- Acute postop hematuria
- Acute postop urinary retention
- Brief SVT 160s on 04/30, followed by V-pacing @60 bpm
- Acute postop a-fib with RVR (150's)
- Acute postop hyponatremia, 134
Discussed patient care with: Cardiology, Nursing, Respiratory Therapy, Pharmacy and Care Team
Subjective
Procedure
- s/p CABG x 3 (GONZALEZ to LAD, GSV to OM, GSV to RPDA) by Dr. Martinez on 04/29/24
-
Date of Service: May 03, 2024
Pt c/o mild incisional pain, and ambulatory dysfunction which he describes as not new
Objective Data
-
PT 16.3 Sec (11.4-14.6) H 04/29/24 14:39
INR 1.30 04/29/24 14:39
APTT 38.5 Sec (23.4-35.0) H 04/29/24 14:39
Vital Signs
Vital Signs
Temp Pulse Resp BP Pulse Ox
98.7 F 134 22 121/78 98
05/02/24 23:00 05/02/24 23:01 05/02/24 23:00 05/02/24 23:01 05/02/24 23:01
CT Intake/Output/Weight
08/31/24 08/31/24 09/01/24
06:59 18:59 06:59
Intake Total 90 / 140 160 / 343.2 183.2 / 343.2
Output Total 515 / 1780 850 / 1075 225 / 1075
Balance -425 / -1640 -690 / -731.8 -41.8 / -731.8
SaO2: 98 (2L)
Physical Exam
-
General: Awake, Oriented and AOx3
Cardiovascular: Regular rate & rhythm, No Murmurs, No Rub and No Gallop
Respiratory: Decreased Breath Sounds (at bases, otherwise clear)
Sternum: Stable
Incision: Clean, Dry, Intact and Dressing Intact
Extremities: Other (+trace edema)
Data Reviewed
-
Lab Results: Results Reviewed
Medications: Active Meds Reviewed
Chest X-Ray: Report Reviewed and Image Reviewed
ECG: Report Reviewed and Image Reviewed
--- NOTE | 2024-05-03 04:53 | PTCARENOTE ---
Patient reassessed. Remains in Afib on the monitor. No c/o pain. AM labs obtained. AM hygiene care provided.
[2024-05-03 04:56] LABS: Hematocrit 31.9 % (39.0-52.0); Mean Corp Hgb Conc. 34.5 g/dL (33.0-37.0); Mean Corpuscular Hgb 32.2 pg (27.0-31.0); Mean Corpuscular Volume 93.3 fL (80.0-94.0); Mean Platelet Volume 10.2 fL (7.4-10.4); Platelet Count 168 10^3/uL (130-400); Red Blood Cell Count 3.42 10^6/uL (4.70-6.10); Red Cell Dist. Width 13.1 % (11.5-14.5); White Blood Cell Count 8.8 10^3/uL (4.8-10.8)
[2024-05-03 05:12] LABS: Blood Urea Nitrogen 27 mg/dl (9-20); Calcium 8.6 mg/dl (8.4-10.2); Carbon Dioxide 30 mmol/L (22-30); Chloride 99 mmol/L (98-107); Estimated Creatinine Clearance 109 ml/min; Glucose 147 mg/dl (70-99); Magnesium 2.3 mg/dl (1.6-2.3); Potassium 3.7 mmol/L (3.5-5.1); Sodium 134 mmol/L (135-145); eGFR > 60.00
[2024-05-03] MEDS: KCL 40 MEQ PO (06:13)
[2024-05-03] MEDS: TYLENOL 1000 MG PO ×2 (06:13→16:02)
--- NOTE | 2024-05-03 07:30 | PTCARENOTE ---
Received pt from cook night RN; A-fib on monitor and VSS; Amiodarone infusing see flow sheet for details; RIJ Cordis and PIVx1; Lungs diminished; IS to 750; positive bowel sounds; Calzada catheter draining yellow urine; +2 lower extremity edema
noted; palpable pulses throughout; surgical sites C/D/I; see nursing documentation for further details.
[2024-05-03] MEDS: NON-FORMULARY ITEM 1 INH INH (08:07)
[2024-05-03] MEDS: LOPRESSOR 2 MG IV (08:11)
[2024-05-03] MEDS: LASIX 20 MG IV (08:12)
[2024-05-03] MEDS: LOPRESSOR 25 MG PO (08:14)
[2024-05-03] MEDS: LOW STRENGTH ASPIRIN 81 MG PO (08:14)
[2024-05-03] MEDS: PROTONIX 40 MG PO (08:14)
[2024-05-03] MEDS: PLAVIX 75 MG PO (08:14)
[2024-05-03] MEDS: MUCINEX 600 MG PO ×2 (08:14→20:19)
[2024-05-03] MEDS: VITAMIN C 500 MG PO (08:14)
[2024-05-03] MEDS: ZETIA 10 MG PO (08:14)
[2024-05-03] MEDS: REGLAN 10 MG PO ×3 (08:14→16:02)
[2024-05-03] MEDS: VITAMIN D3 (cholecalciferol) 100 MCG PO (08:14)
[2024-05-03] MEDS: VITAMIN B-12 500 MCG PO (08:14)
[2024-05-03] MEDS: NEURONTIN 100 MG PO ×3 (08:14→20:20)
[2024-05-03] MEDS: SENOKOT-S 1 TABLET PO ×2 (08:15→16:02)
[2024-05-03] MEDS: LIDOCAINE 4% PATCH 1 PATCH TOPICAL (08:15)
[2024-05-03] MEDS: ZINC SULFATE 220 MG PO (08:15)
[2024-05-03] MEDS: BACTROBAN 2% OINTMENT 1 APPLIC NASAL (08:15)
[2024-05-03] MEDS: MAGNESIUM OXIDE 500 MG PO ×2 (08:15→20:19)
--- NOTE | 2024-05-03 08:15 | PTCARENOTE ---
Pt converted to NSS; VSS and pt resting comfortably in chair.
[2024-05-03] MEDS: CORDARONE 103 MG IV (08:16)
--- NOTE | 2024-05-03 09:45 | W.PN.CARDCBS ---
Today's Communication / Plan
-
-Atrial tachycardia/atrial fibrillation noted now in sinus rhythm.
-Would switch IV amiodarone to oral 200 mg twice daily. He currently is in sinus rhythm. Watch for bradycardia.
-Eventually oral anticoagulation and then reassess as an outpatient. Currently has urologic related issues and would make sure that this is okay with CT surgery/urology. Defer to those services.
Impression / Plan
-
PCP: Dr. Guy
Cardiology: Dr. CARLITO Lomax, last seen 12/2022
Nephrology: Dr. Lees
Impression:
Chest pain and GROSS on admission with serially undetectable Troponin 04/27/24
CAD
multivessel CAD by cath 04/28/24
s/p CABG with ENRIQUEZ to LAD, SVG to OM and SVG to RPDA 04/29/24
Atrial tachycardia/atrial fibrillation
HTN
Untreated hyperlipidemia due to statin intolerance and patient refusal of PCSK9 inhibitor meds
Mild by echo 06/2022
Morbid obese
cRBBB
LAFB
Sleep apnea
Echo 06/22/22: EF 70-75%, mild conc LVH, mild peak/mean 20/10 mmHg and NICKY 2.0 cm sq
Echo 04/27/24: EF 65 to 70%, moderate concentric LVH, mild with peak/mean 16/10 mmHg and NICKY 1.7 cm sq, no aortic insufficiency
Plan:
-Patient is s/p ENRIQUEZ to LAD, SVG to OM and SVG to RPDA 04/29/24.
-On telemetry atrial fibrillation/atrial tachycardia. Noted previously had atrial tachycardia however amiodarone was held because of bradycardia at that time. Has not been bradycardic. Received IV amiodarone.
-Would switch IV amiodarone to oral 200 mg twice daily. He currently is in sinus rhythm. Watch for bradycardia.
-Eventually oral anticoagulation and then reassess as an outpatient. Currently has urologic related issues including hematuria and would make sure that this is okay with CT surgery/urology. Defer to those services.
-Urology following. Calzada in place. As patient has had some hematuria noted. Calzada catheter removed and then replaced.
-Continue aspirin and plavix. When anticoagulation is started if all in agreement would do aspirin and Eliquis.
-BP stable.
-LDL 159 on admission. Patient was not taking a statin prior to admission and says he is intolerant to Fenofibrate due to joint pain, atorvastatin caused him to have joint pain and feel sluggish, simvastatin caused joint pain and fatigue. Patient
refused to consider PCSK9 inhibitors before. Will need to have ongoing discussions about the repercussions of an untreated LDL of 159 and known CAD. 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
-Continue post op care, IS.
-Edema noted maintaining negative fluid balance overnight.
Discussed with nursing. Discussed with primary service.
HPI: Patient came to [facility] today with chest pain and GROSS and cardiology has been consulted. Patient last saw Dr. Lomax in the office 12/07/22 and complained of chest pain and GROSS, but had previously completed a Lexiscan mibi 09/17/22 that showed a small
area of mildly decreased perfusion that was fixed in the mid inferior and apical inferior and partially improved with prone imaging. When patient complained of recurrent symptoms at the 12/07/22 office visit he was recommended PCSK9 inhibitor for
untreated hyperlipidemia and a coronary calcium score, but he declined and did not come back to the office. Patient says that since the beginning of the summer he has had a rapid deterioration in his activity levels due to exertional intolerance. He
describes chest pain from shoulder to shoulder and GROSS when he walks more than 10 yards. He says that if he tries to complete too much activity that he vomits. No resting chest pain or GROSS. No substernal pain and no radiation to his neck or jaw. He
has experience similar symptoms for more than 1 year, but happening at lower levels of activity now. Patient with chronic LE edema that has been present for months. He says edema is there even in the morning when he wakes up. He also complains of
bloating and at one point had lost 10 lbs, but then gained the weight back quickly and has not gained any additional weight. He says that despite this he thinks his pants are looser at the waist than before. He has HTN that is managed by Nephrology
using Cardura, eplerenone and losartan. His resting BP is 150/88 in the ER and he has similar readings at home. He also has a h/o mild by last echo almost 2 years ago. Patient says that he has described his symptoms to family members who are
physicians and also to friends and they all feel that he has CAD and that he needs a stent so this is the reason he came to [facility] today and not months ago.
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
Subjective
Date of Service: May 03, 2024
Calzada catheter is bothersome. He denies chest pain and palpitations.
Objective
Labs:
05/03/24 04:37
05/03/24 04:37
Labs
Hgb 11.0 g/dL (13.0-18.0) L 05/03/24 04:37
Hct 31.9 % (39.0-52.0) L 05/03/24 04:37
Plt Count 168 10^3/uL (130-400) 05/03/24 04:37
PT 16.3 Sec (11.4-14.6) H 04/29/24 14:39
INR 1.30 04/29/24 14:39
APTT 38.5 Sec (23.4-35.0) H 04/29/24 14:39
Sodium 134 mmol/L (135-145) L 05/03/24 04:37
Potassium 3.7 mmol/L (3.5-5.1) 05/03/24 04:37
BUN 27 mg/dl (9-20) H 05/03/24 04:37
Creatinine 0.8 mg/dL (0.7-1.3) 05/03/24 04:37
Glucose 147 mg/dl (70-99) H 05/03/24 04:37
Vital Signs and I&O:
Vital Signs
Temp Pulse Resp BP Pulse Ox
98.7 F 130 16 111/80 98
05/03/24 03:00 05/03/24 08:10 05/03/24 08:10 05/03/24 04:36 05/03/24 03:47
Vital Signs
Temp Pulse Resp BP Pulse Ox
98.7 F 130 16 111/80 98
05/03/24 03:00 05/03/24 08:10 05/03/24 08:10 05/03/24 04:36 05/03/24 03:47
Intake & Output
05/01/24 05/02/24 05/03/24 05/04/24
06:59 06:59 06:59 06:59
Intake Total 613.5 / 613.5 140 / 140 483.2 / 483.2
Output Total 1575 / 1575 1780 / 1780 1325 / 1325
Balance -961.5 / -961.5 -1640 / -1640 -841.8 / -841.8
Physical Exam
Physical Exam
General: Well developed, well nourished in NAD.
Heart: Distant heart sounds, RRR, no murmurs, No S3, S4, no rubs.
Lungs: Decreased breath sounds at the bases with few crackles
Abdomen: Protuberant/distended.
Extremities: No clubbing, cyanosis or +1
Neuro: Grossly nonfocal, awake, alert and oriented x3.
[2024-05-03] MEDS: DULCOLAX 10 MG RECTAL (10:34)
--- NOTE | 2024-05-03 12:28 | PTCARENOTE ---
Assessment unchanged; NSR on monitor and VSS; pt sitting comfortably in chair.
[2024-05-03] MEDS: KCL 20 MEQ PO (12:51)
[2024-05-03] MEDS: NSS IV (13:16)
--- NOTE | 2024-05-03 15:00 | PTCARENOTE ---
Calzada catheter draining blood tinged urine; updated Dr Alves; no new orders at this time.
--- NOTE | 2024-05-03 15:46 | CHAP ---
Mr. Villeda welcomed a prayerful visit. Emotional and spiritual support provided.
[2024-05-03] MEDS: LIDOCAINE URO-JET 2% 1 SYRINGE TOPICAL (16:02)
[2024-05-03] MEDS: INSPRA 75 MG PO ×2 (20:18→20:19)
[2024-05-03] MEDS: SINGULAIR 10 MG PO (20:19)
[2024-05-03] MEDS: PACERONE 200 MG PO (20:19)
[2024-05-03] MEDS: CARDURA 4 MG PO (20:19)
[2024-05-03] MEDS: TOPROL XL 25 MG PO (20:20)
[2024-05-03] MEDS: CLARITIN 10 MG PO (20:20)
[2024-05-04] VITALS (9 sets, daily range): BP systolic 114–159; BP diastolic 72–83; O2SAT 95; BMI 37.9
[2024-05-04] MEDS: TYLENOL PO (00:09)
[2024-05-04] MEDS: TYLENOL 1000 MG PO ×3 (00:57→21:16)
--- NOTE | 2024-05-04 04:09 | W.PN.CT ---
Today's Communication / Plan
-
Plan:
-No major issues overnight. Hemodynamically and neurologically intact
-Converted to NSR yesterday 05/03 after 14hrs of a-fib. Tolerating Toprol XL and Amiodarone
-Recurrent hematuria following ambulation with PT/OT. Will likely not tolerate DOAC/NOAC. Will place Plavix on hold for now. May need CBI, will notify Urology
-Esqueda reinserted 05/01/24 for postop urinary retention. Urology following and recommend discharge with esqueda
-Hyponatremia has resolved, 134->136
-Cont. current meds (ASA, Zetia, Cardura, Inspra, Protonix). Intolerant of statins
-F/U 2-view cxr
-Encourage IS, OOB
-Ambulate/ PT/OT following and recommend placement to SNF
-Will cut temporary PW prior to d/c home
-SNF placement likely tomorrow
Assessment / Plan
-
Assessment:
-Mv-CAD - s/p CABG x 3 (GONZALEZ to LAD, GSV to OM, GSV to RPDA) by Dr. Martinez on 04/29/24, pod #5
- Intraop ARIS: normal biventricular function, unchanged from prior
- Pt. w/ bradycardia sinus rhythm in the 40s under GA. Required V-pacing initially, regained NSR w/ BBB in 70s
- HTN/HLD
- Preop bradycardia in 40's
- Pre-existing RBBB
- ASUNCION, not on CPAP
- Class 2 obesity (BMI 38.7)
- Prediabetes (A1C 5.9)
- Asthma
- COPD
- Former smoker
- EtOH daily (beer or wine)
- Scattered R sided pulmonary nodules upto 1.3cm on chest CT 04/28/24
- R adrenal adenoma 1.9 cm
- Acute postop bifascicular block (new RBBB and LAFB) with bradycardia, requiring pacing briefly postop - will hold BB and Amio
- Acute postop blood loss anemia
- Acute postop hypovolemia with subsequent hypervolemia
- Acute postop atelectasis
- Acute postop hematuria
- Acute postop urinary retention
- Brief SVT 160s on 04/30, followed by V-pacing @60 bpm
- Acute postop a-fib with RVR (150's)
- Acute postop hyponatremia, 134
Discussed patient care with: Cardiology, Nursing, Respiratory Therapy, Pharmacy and Care Team
Subjective
Procedure
- s/p CABG x 3 (GONZALEZ to LAD, GSV to OM, GSV to RPDA) by Dr. Martinez on 04/29/24
-
Date of Service: May 04, 2024
Pt c/o mild incisional pain, otherwise feels well
Objective Data
-
PT 16.3 Sec (11.4-14.6) H 04/29/24 14:39
INR 1.30 04/29/24 14:39
APTT 38.5 Sec (23.4-35.0) H 04/29/24 14:39
Vital Signs
Vital Signs
Temp Pulse Resp BP Pulse Ox
98 F 81 18 148/84 95
05/03/24 20:00 05/03/24 21:00 05/03/24 20:00 05/03/24 20:17 05/03/24 20:17
CT Intake/Output/Weight
05/03/24 05/03/24 05/04/24
06:59 18:59 06:59
Intake Total 323.2 / 483.2 177.8 / 177.8
Output Total 475 / 1325 1100 / 1100
Balance -151.8 / -841.8 -922.2 / -922.2
SaO2: 95 (RA)
Physical Exam
-
General: Awake, Oriented and AOx3
Cardiovascular: Regular rate & rhythm, No Murmurs, No Rub and No Gallop
Respiratory: Decreased Breath Sounds (at bases, otherwise clear)
Sternum: Stable
Incision: Clean, Dry, Intact and Dressing Intact
Extremities: Other (+trace edema)
Data Reviewed
-
Lab Results: Results Reviewed
Medications: Active Meds Reviewed
Chest X-Ray: Report Reviewed and Image Reviewed
ECG: Report Reviewed and Image Reviewed
[2024-05-04 05:47] LABS: Hematocrit 29.4 % (39.0-52.0); Hemoglobin 10.2 g/dL (13.0-18.0); Mean Corp Hgb Conc. 34.7 g/dL (33.0-37.0); Mean Corpuscular Hgb 31.4 pg (27.0-31.0); Mean Corpuscular Volume 90.5 fL (80.0-94.0); Mean Platelet Volume 9.7 fL (7.4-10.4); Platelet Count 197 10^3/uL (130-400); Red Blood Cell Count 3.25 10^6/uL (4.70-6.10); Red Cell Dist. Width 13.1 % (11.5-14.5); White Blood Cell Count 9.1 10^3/uL (4.8-10.8)
[2024-05-04 06:08] LABS: Blood Urea Nitrogen 18 mg/dl (9-20); Calcium 8.5 mg/dl (8.4-10.2); Carbon Dioxide 32 mmol/L (22-30); Chloride 100 mmol/L (98-107); Estimated Creatinine Clearance 108 ml/min; Glucose 105 mg/dl (70-99); Magnesium 2.4 mg/dl (1.6-2.3); Potassium 4.5 mmol/L (3.5-5.1); Sodium 136 mmol/L (135-145); eGFR > 60.00
[2024-05-04] MEDS: NON-FORMULARY ITEM 1 INH INH (07:20)
--- NOTE | 2024-05-04 08:00 | PTCARENOTE ---
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 NSR via cm, SaO2 @ 96% on RA. RIJ Cordis w/kvo infusing. Epicardial V-wire, insulated. Calzada catheter to gravity, draining blood-tinged
urine. All procedural sites stable. Patient assisted oob to chair, breakfast ordered. Patient updated to plan of care for the day, in agreement. See work list for full assessment and interventions performed.
[2024-05-04] MEDS: MAGNESIUM OXIDE 500 MG PO ×2 (08:54→20:00)
[2024-05-04] MEDS: ZETIA 10 MG PO (08:54)
[2024-05-04] MEDS: ZINC SULFATE 220 MG PO (08:54)
[2024-05-04] MEDS: MUCINEX 600 MG PO ×2 (08:54→20:00)
[2024-05-04] MEDS: VITAMIN C 500 MG PO (08:55)
[2024-05-04] MEDS: TOPROL XL 25 MG PO ×2 (08:55→20:01)
[2024-05-04] MEDS: REGLAN PO ×3 (08:55→15:49)
[2024-05-04] MEDS: VITAMIN B-12 500 MCG PO (08:55)
[2024-05-04] MEDS: LOW STRENGTH ASPIRIN 81 MG PO (08:56)
[2024-05-04] MEDS: NEURONTIN PO ×3 (08:56→21:16)
[2024-05-04] MEDS: VITAMIN D3 (cholecalciferol) 100 MCG PO (08:56)
[2024-05-04] MEDS: PROTONIX 40 MG PO (08:56)
[2024-05-04] MEDS: PACERONE 200 MG PO ×2 (08:57→20:01)
[2024-05-04] MEDS: LASIX 20 MG IV (08:57)
[2024-05-04] MEDS: SENOKOT-S PO ×2 (09:11)
[2024-05-04] MEDS: LIDOCAINE 4% PATCH TOPICAL (09:11)
--- NOTE | 2024-05-04 10:40 | W.PN.URO.CBU ---
Today's Communication / Plan
-
Maintain Calzada to catheter drainage
Encourage PO fluids (volume limits per CTS team)
Trend H/H
Continue ASA 81 mg
Hold Plavix for now
D/w patient and family.
D/w RN.
D/w CTS team.
Assessment / Plan
-
Recurrent post-op urinary retention - large volume (>1000 cc)
H/o BPH on doxazosin
Hematuria - mild, secondary to decompression after catheter re-insertion, BPH, anti-platelet therapy
Given light pink appearance in tubing w/o clots or obstruction, no indication for 3-way catheter exchange or CBI at this time.
Diagnosis
-
Date of Service: May 04, 2024
-
Patient Diagnosis:
Hematuria
Acute urinary retention - large volume (>1000 cc)
H/o BPH on doxazosin
Subjective
-
Feeling well.
Ambulating w/ PT/OT.
Urine light pink in catheter tubing - initially clear 24 hrs after catheter re-insertion, hematuria recurrence noted 9/1 PM (improved).
Objective
-
Vital Signs
Temp Pulse Resp BP Pulse Ox
98.6 F 81 15 134/81 96
05/04/24 08:09 05/04/24 10:00 05/04/24 08:09 05/04/24 08:57 05/04/24 08:15
Intake and Output
05/03/24 05/04/24 05/05/24
06:59 06:59 06:59
Intake Total 483.2 / 483.2 177.8 / 177.8 40 / 40
Output Total 1325 / 1325 1800 / 1800 550 / 550
Balance -841.8 / -841.8 -1622.2 / -1622.2 -510 / -510
Intake:
IV fluids (Total) 483.2 / 483.2 177.8 / 177.8 40 / 40
Amio 233.2 / 233.2 97.8 / 97.8
CORDIS 250 / 250 80 / 80 40 / 40
Output:
Urine, Calzada 1325 / 1325 1800 / 1800 550 / 550
Laboratory Results
05/04/24 05:25
05/04/24 05:25
Physical Exam
-
General - well developed, well nourished, no acute distress
Abdomen - soft, non-tender, non-tender
Genitalia - normal, Calzada catheter w/ clear UOP
Skin - warm & dry with no rash
Neuro - AOx3, no motor deficits
Extremities - no clubbing, no cyanosis, no edema
Care Review
Data Reviewed
Discussed with: Cardiology, Nursing and Family
[2024-05-04] MEDS: NSS 500 IV (11:33)
--- NOTE | 2024-05-04 11:39 | PTCARENOTE ---
VS obtained, assessment stable. Patient resting comfortably oob, visitors at bedside.
--- NOTE | 2024-05-04 15:50 | W.PN.CARDCBS ---
Today's Communication / Plan
-
Agree with current cardiac meds
Consider oral anticoagulation when safe from surgical standpoint, monitor on telemetry for recurrence of A-fib/A. tach
Impression / Plan
-
PCP: Dr. Guy
Cardiology: Dr. CARLITO Lomax, last seen 12/2022
Nephrology: Dr. Lees
Impression:
Chest pain and GROSS on admission with serially undetectable Troponin 04/27/24
CAD
multivessel CAD by cath 04/28/24
s/p CABG with ENRIQUEZ to LAD, SVG to OM and SVG to RPDA 04/29/24
Atrial tachycardia/atrial fibrillation
HTN
Untreated hyperlipidemia due to statin intolerance and patient refusal of PCSK9 inhibitor meds
Mild by echo 06/2022
Morbid obese
cRBBB
LAFB
Sleep apnea
Echo 06/22/22: EF 70-75%, mild conc LVH, mild peak/mean 20/10 mmHg and NICKY 2.0 cm sq
Echo 04/27/24: EF 65 to 70%, moderate concentric LVH, mild with peak/mean 16/10 mmHg and NICKY 1.7 cm sq, no aortic insufficiency
Plan:
-Patient is s/p ENRIQUEZ to LAD, SVG to OM and SVG to RPDA 04/29/24
-On telemetry episode of atrial fibrillation/atrial tachycardia -> NSR on 05/03/24
-Cont amiodarone to oral 200 mg twice daily. He currently is in sinus rhythm. Watch for bradycardia.
-Would recommend OAC when safe from a surgical standpoint, for now continue aspirin and plavix.
-BP stable.
-LDL 159 on admission. Patient was not taking a statin prior to admission and says he is intolerant to Fenofibrate due to joint pain, atorvastatin caused him to have joint pain and feel sluggish, simvastatin caused joint pain and fatigue. Patient
refused to consider PCSK9 inhibitors before. Will need to have ongoing discussions about the repercussions of an untreated LDL of 159 and known CAD. 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
-Edema noted maintaining negative fluid balance overnight.
HPI: Patient came to [facility] today with chest pain and GROSS and cardiology has been consulted. Patient last saw Dr. Lomax in the office 12/07/22 and complained of chest pain and GROSS, but had previously completed a Lexiscan mibi 09/17/22 that showed a small
area of mildly decreased perfusion that was fixed in the mid inferior and apical inferior and partially improved with prone imaging. When patient complained of recurrent symptoms at the 12/07/22 office visit he was recommended PCSK9 inhibitor for
untreated hyperlipidemia and a coronary calcium score, but he declined and did not come back to the office. Patient says that since the beginning of the summer he has had a rapid deterioration in his activity levels due to exertional intolerance. He
describes chest pain from shoulder to shoulder and GROSS when he walks more than 10 yards. He says that if he tries to complete too much activity that he vomits. No resting chest pain or GROSS. No substernal pain and no radiation to his neck or jaw. He
has experience similar symptoms for more than 1 year, but happening at lower levels of activity now. Patient with chronic LE edema that has been present for months. He says edema is there even in the morning when he wakes up. He also complains of
bloating and at one point had lost 10 lbs, but then gained the weight back quickly and has not gained any additional weight. He says that despite this he thinks his pants are looser at the waist than before. He has HTN that is managed by Nephrology
using Cardura, eplerenone and losartan. His resting BP is 150/88 in the ER and he has similar readings at home. He also has a h/o mild by last echo almost 2 years ago. Patient says that he has described his symptoms to family members who are
physicians and also to friends and they all feel that he has CAD and that he needs a stent so this is the reason he came to [facility] today and not months ago.
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
Subjective
Date of Service: May 04, 2024
No acute overnight events. Resting out of bed to chair comfortably. Maintaining sinus rhythm on telemetry. Not reporting any chest discomfort. Some mild shortness of breath/difficulty taking a deep breath.
Objective
Labs:
05/04/24 05:25
05/04/24 05:25
Labs
Hgb 10.2 g/dL (13.0-18.0) L 05/04/24 05:25
Hct 29.4 % (39.0-52.0) L 05/04/24 05:25
Plt Count 197 10^3/uL (130-400) 05/04/24 05:25
PT 16.3 Sec (11.4-14.6) H 04/29/24 14:39
INR 1.30 04/29/24 14:39
APTT 38.5 Sec (23.4-35.0) H 04/29/24 14:39
Sodium 136 mmol/L (135-145) 05/04/24 05:25
Potassium 4.5 mmol/L (3.5-5.1) 05/04/24 05:25
BUN 18 mg/dl (9-20) 05/04/24 05:25
Creatinine 0.8 mg/dL (0.7-1.3) 05/04/24 05:25
Glucose 105 mg/dl (70-99) H 05/04/24 05:25
Vital Signs and I&O:
Vital Signs
Temp Pulse Resp BP Pulse Ox
98.7 F 79 17 129/73 96
05/04/24 15:47 05/04/24 15:47 05/04/24 15:47 05/04/24 15:45 05/04/24 15:47
Vital Signs
Temp Pulse Resp BP Pulse Ox
98.7 F 79 17 129/73 96
05/04/24 15:47 05/04/24 15:47 05/04/24 15:47 05/04/24 15:45 05/04/24 15:47
Intake & Output
05/02/24 05/03/24 05/04/24 05/05/24
06:59 06:59 06:59 06:59
Intake Total 140 / 140 483.2 / 483.2 177.8 / 177.8 340 / 340
Output Total 1780 / 1780 1325 / 1325 1800 / 1800 825 / 825
Balance -1640 / -1640 -841.8 / -841.8 -1622.2 / -1622.2 -485 / -485
Physical Exam
Physical Exam
Gen: NAD, AA
HEENT: NC/AT, sclera anicteric
Neck: No JVD
CV: RRR, NL s1/s2
Lungs: CTAB
Abd: S/distended
Ext: No LE edema
Skin: Warm, dry
Neuro: Non-focal
[2024-05-04] MEDS: SENOKOT-S 1 TABLET PO (15:51)
--- NOTE | 2024-05-04 16:00 | PTCARENOTE ---
VS obtained, stable. Patient remains oob in chair, states pain controlled.
--- NOTE | 2024-05-04 21:00 | PTCARENOTE ---
report received from previous RN, assumed care of pt, walking rounds done. pt in bed, AAOx4. pt denies any pain at this time. NSR on monitor, HR 70's. B/L radial and DP pulses palpable. heart tones clear. epicardial wire intact and insulted. B/L
breath sounds present. IS encouraged. POX 97% on room air. bowel sounds present. esqueda catheter intact, draining bloody urine, some clot noted but appears patent. RIJ cordis intact w KVO infusing. all surgical sites stable. see worklist for full
assessment, VS, and interventions. pt resting comfortably.
[2024-05-04] MEDS: CARDURA 4 MG PO (21:15)
[2024-05-04] MEDS: CLARITIN 10 MG PO (21:16)
[2024-05-04] MEDS: SINGULAIR 10 MG PO (21:16)
[2024-05-05] VITALS (19 sets, daily range): BP systolic 110–147; BP diastolic 67–84; PULSE 80–81; O2SAT 97–100; BMI 35.0; BMI 38.4
[2024-05-05] MEDS: SENOKOT-S PO ×3 (01:16→14:17)
--- NOTE | 2024-05-05 04:16 | W.PN.CT ---
Today's Communication / Plan
-
Plan:
-No major issues overnight. Hemodynamically and neurologically intact
-Converted to NSR 05/03 after 14hrs of a-fib. Tolerating Toprol XL and Amiodarone
-Recurrent hematuria following ambulation with PT/OT, No CBI per Urology, look better today (clearing). Will discuss DOAC/NOAC in light a-fib and hematuria. Plavix was held yesterday
-Will discuss resumption of Plavix today
-Esqueda reinserted 05/01/24 for postop urinary retention. Urology following and recommend discharge with esqueda
-Hyponatremia has resolved, 134->136
-Cont. current meds (ASA, Zetia, Cardura, Inspra, Protonix). Intolerant of statins
-F/U 2-view cxr
-Encourage IS, OOB
-Ambulate/ PT/OT following and recommend placement to SNF
-Will cut temporary PW prior to d/c home
-SNF placement likely today
Assessment / Plan
-
Assessment:
-Mv-CAD - s/p CABG x 3 (GONZALEZ to LAD, GSV to OM, GSV to RPDA) by Dr. Martinez on 04/29/24, pod #6
- Intraop ARIS: normal biventricular function, unchanged from prior
- Pt. w/ bradycardia sinus rhythm in the 40s under GA. Required V-pacing initially, regained NSR w/ BBB in 70s
- HTN/HLD
- Preop bradycardia in 40's
- Pre-existing RBBB
- ASUNCION, not on CPAP
- Class 2 obesity (BMI 38.7)
- Prediabetes (A1C 5.9)
- Asthma
- COPD
- Former smoker
- EtOH daily (beer or wine)
- Scattered R sided pulmonary nodules upto 1.3cm on chest CT 04/28/24
- R adrenal adenoma 1.9 cm
- Acute postop bifascicular block (new RBBB and LAFB) with bradycardia, requiring pacing briefly postop - will hold BB and Amio
- Acute postop blood loss anemia
- Acute postop hypovolemia with subsequent hypervolemia
- Acute postop atelectasis
- Acute postop hematuria
- Acute postop urinary retention
- Brief SVT 160s on 04/30, followed by V-pacing @60 bpm
- Acute postop a-fib with RVR (150's)
- Acute postop hyponatremia, 134
Discussed patient care with: Cardiology, Nursing, Respiratory Therapy, Pharmacy and Care Team
Subjective
Procedure
- s/p CABG x 3 (GONZALEZ to LAD, GSV to OM, GSV to RPDA) by Dr. Martinez on 04/29/24
-
Date of Service: May 05, 2024
Pt c/o mild incisional pain, otherwise feels well
Objective Data
-
PT 16.3 Sec (11.4-14.6) H 04/29/24 14:39
INR 1.30 04/29/24 14:39
APTT 38.5 Sec (23.4-35.0) H 04/29/24 14:39
Vital Signs
Vital Signs
Temp Pulse Resp BP Pulse Ox
98.5 F 73 17 139/75 97
05/05/24 00:04 05/05/24 01:00 05/05/24 00:04 05/05/24 00:04 05/05/24 00:04
CT Intake/Output/Weight
05/04/24 05/04/24 05/05/24
06:59 18:59 06:59
Intake Total 620 / 850 230 / 850
Output Total 700 / 1800 1000 / 1550 550 / 1550
Balance -700 / -1622.2 -380 / -700 -320 / -700
SaO2: 97 (RA)
Physical Exam
-
General: Awake, Oriented and AOx3
Cardiovascular: Regular rate & rhythm, No Murmurs, No Rub and No Gallop
Respiratory: Decreased Breath Sounds (at bases, otherwise clear)
Sternum: Stable
Incision: Clean, Dry, Intact and Dressing Intact
Extremities: Other (+trace edema)
Data Reviewed
-
Lab Results: Results Reviewed
Medications: Active Meds Reviewed
Chest X-Ray: Report Reviewed and Image Reviewed
ECG: Report Reviewed and Image Reviewed
--- NOTE | 2024-05-05 05:00 | PTCARENOTE ---
no changes in assessment overnight, pt VSS. SR 70's. POX 97-98% on room air. RIJ cordis maintained. Calzada drainage remains blood-tinged. all surgical sites stable. AM labs drawn and sent. pt sleeping between care.
[2024-05-05 05:21] LABS: Hematocrit 29.5 % (39.0-52.0); Hemoglobin 10.2 g/dL (13.0-18.0); Mean Corp Hgb Conc. 34.6 g/dL (33.0-37.0); Mean Corpuscular Hgb 31.5 pg (27.0-31.0); Mean Platelet Volume 9.4 fL (7.4-10.4); Platelet Count 219 10^3/uL (130-400); Red Blood Cell Count 3.24 10^6/uL (4.70-6.10); Red Cell Dist. Width 13.1 % (11.5-14.5); White Blood Cell Count 9.3 10^3/uL (4.8-10.8)
[2024-05-05 05:40] LABS: Blood Urea Nitrogen 15 mg/dl (9-20); Calcium 8.4 mg/dl (8.4-10.2); Carbon Dioxide 32 mmol/L (22-30); Chloride 100 mmol/L (98-107); Estimated Creatinine Clearance 108 ml/min; Glucose 103 mg/dl (70-99); Magnesium 2.3 mg/dl (1.6-2.3); Potassium 4.5 mmol/L (3.5-5.1); Sodium 136 mmol/L (135-145); eGFR > 60.00
[2024-05-05] MEDS: TYLENOL 1000 MG PO ×3 (06:20→21:59)
[2024-05-05] MEDS: REGLAN 10 MG PO (06:21)
[2024-05-05] MEDS: LIDOCAINE 4% PATCH TOPICAL (07:08)
[2024-05-05] MEDS: NEURONTIN PO ×3 (07:08→22:00)
[2024-05-05] MEDS: MAGNESIUM OXIDE PO (07:08)
[2024-05-05] MEDS: VITAMIN B-12 PO (07:08)
[2024-05-05] MEDS: ZINC SULFATE PO (07:09)
[2024-05-05] MEDS: VITAMIN D3 (cholecalciferol) PO (07:09)
[2024-05-05] MEDS: VITAMIN C PO (07:09)
[2024-05-05] MEDS: NON-FORMULARY ITEM 1 INH INH (07:18)
--- NOTE | 2024-05-05 07:55 | W.PN.URO.CBU ---
Today's Communication / Plan
-
Maintain Calzada catheter
H/H reviewed - stable
Continue ASA 81 mg
Hold Plavix for now - anticipate starting w/n 24-48 hrs
D/w patient.
D/w CTS team.
Assessment / Plan
-
Recurrent post-op urinary retention - large volume (>1000 cc)
H/o BPH on doxazosin
Hematuria - mild, secondary to decompression after catheter re-insertion, BPH, anti-platelet therapy
Given progressively improving hematuria, no indication for 3-way catheter exchange or CBI at this time.
Hgb 10.2 => 10.2
Diagnosis
-
Date of Service: May 05, 2024
-
Patient Diagnosis:
Post Op Day:
Patient Diagnosis:
Hematuria
Acute urinary retention - large volume (>1000 cc)
H/o BPH on doxazosin
Subjective
-
Hematuria improved in last 24 hrs.
Denies significant catheter discomfort.
Ambulating w/ PT/OT.
Eager to be discharged.
Objective
-
Vital Signs
Temp Pulse Resp BP Pulse Ox
98.4 F 76 16 130/69 97
05/05/24 04:19 05/05/24 07:21 05/05/24 07:21 05/05/24 04:19 05/05/24 04:19
Intake and Output
05/04/24 05/05/24 05/06/24
06:59 06:59 06:59
Intake Total 177.8 / 177.8 930 / 930
Output Total 1800 / 1800 2200 / 2200
Balance -1622.2 / -1622.2 -1270 / -1270
Intake:
Oral fluids 700 / 700
IV fluids (Total) 177.8 / 177.8 230 / 230
Amio 97.8 / 97.8
CORDIS 80 / 80 230 / 230
Output:
Urine, Calzada 1800 / 1800 0 / 2200
Laboratory Results
05/05/24 04:56
05/05/24 04:56
Physical Exam
-
General - well developed, well nourished, no acute distress
Abdomen - soft, non-tender, non-distended, protuberant abdomen
Genitalia - normal, Calzada catheter w/ light pink urine in tubing.
Skin - warm & dry with no rash
Neuro - AOx3, no motor deficits
Extremities - no clubbing, no cyanosis, no edema
Care Review
Data Reviewed
Discussed with: Cardiology, Nursing and Family
[2024-05-05] MEDS: PROTONIX 40 MG PO (08:22)
[2024-05-05] MEDS: ZETIA 10 MG PO (08:22)
[2024-05-05] MEDS: PACERONE 200 MG PO ×2 (08:22→20:40)
[2024-05-05] MEDS: MUCINEX 600 MG PO ×2 (08:22→20:40)
[2024-05-05] MEDS: LOW STRENGTH ASPIRIN 81 MG PO (08:22)
[2024-05-05] MEDS: TOPROL XL 25 MG PO ×2 (08:22→20:40)
--- NOTE | 2024-05-05 08:41 | PTCARENOTE ---
Assumed care of patient from medical chemist RN. AAO x 3. Multiple complaints pertaining to the bed, monitor, etc. Reassurance provided. SR on monitor. Epicardial wires insulated at present. Room air 98%. Using IS independently. Abdomen obese,
with positive bowel sounds t/o. No nausea today. Calzada draining bloody caroline urine. Plus 2 bilateral lower extremity edema bilaterally . Pulses palpable. Plan for day discussed.
[2024-05-05] MEDS: LIDOCAINE URO-JET 2% 1 SYRINGE TOPICAL (11:14)
--- NOTE | 2024-05-05 11:17 | PTCARENOTE ---
Rt ij cordis removed after # 22 intima placed in RT hand. Pt continues to c/o penile pain. Discussed with CT EMBEDDED SOFTWARE ENGINEER, Lidocaine jelly ordered and applied. Sent to radiology for 2 view chest x ray. Assessment unchanged from prior.
--- NOTE | 2024-05-05 11:33 | CM ---
Reviewed cahrt. Met with Mr. Villeda to review discharge plans. He states he is feeling better. We reviewed rehab. at [facility] at [place]. He is agreeable to go ing to [facility]. at [place]. Telephone call to [facility]. Liaison to make
the referral. Sent the referral. PM&R evaluation pending. He will need pre-cert with his insurance. Prior to admission he resides with his spouse in a two story home with two steps to enter. He has a full flight of steps to get to bedroom/full
bathroom. He states he has a powder room on the first floor and a recliner he can sleep in if he decides to stay on the first floor. Prior to admission he was independent with ambulation and adls. He has a single point cane at home. Medical
work-up in progress. The discharge plan is to go to [facility] at [place] if approved for admission, bed available and approved by his insurance when medically stable.
[2024-05-05] MEDS: REGLAN PO ×2 (13:13→14:17)
[2024-05-05] MEDS: NSS IV (13:13)
--- NOTE | 2024-05-05 13:53 | W.PN.CARDCBS ---
Addendum entered and electronically signed by Hood Douglass MD 05/05/24 17:26:
I saw and examined the patient.
The Launch Operator's note was reviewed and I agree with the note.
Comment: GEN: No distress, awake, Ox3
HEENT: supple, anicteric, mmm
LUNGS: CTA, no wheezes/rales
CV: Reg, S1/S2, 1/6 syst LSB, no gallop
ABD: soft, BS+, NT/ND
EXT: No edema
NEURO: Gross non-focal
SKIN: sternotomy
Plan:
Still having hematuria. Will hold off on full anticoagulation for now. Continue aspirin alone.
Eventual restart full anticoagulation.
Cont Amiodarone
Original Note:
Today's Communication / Plan
-
continue post op care
treatment of hematuria per urology
in SR. eventual OAC
Impression / Plan
-
PCP: Dr. Guy
Cardiology: Dr. CARLITO Lomax, last seen 12/2022
Nephrology: Dr. Lees
Impression:
Chest pain and GROSS on admission with serially undetectable Troponin 04/27/24
CAD
multivessel CAD by cath 04/28/24
s/p CABG with ENRIQUEZ to LAD, SVG to OM and SVG to RPDA 04/29/24
Atrial tachycardia/atrial fibrillation
HTN
Untreated hyperlipidemia due to statin intolerance and patient refusal of PCSK9 inhibitor meds
Mild by echo 06/2022
Morbid obese
cRBBB
LAFB
Sleep apnea
Echo 06/22/22: EF 70-75%, mild conc LVH, mild peak/mean 20/10 mmHg and NICKY 2.0 cm sq
Echo 04/27/24: EF 65 to 70%, moderate concentric LVH, mild with peak/mean 16/10 mmHg and NICKY 1.7 cm sq, no aortic insufficiency
Plan:
-Patient is s/p ENRIQUEZ to LAD, SVG to OM and SVG to RPDA 04/29/24
-had 14 hours of afib, converted to SR 05/03. remains in SR at this time, continue amiodarone
-presently on asa. plavix presently on hold. ideally would anticoagulate ([id number] score of 3 for age, HTN, vasc disease) however remains with hematuria. esqueda in place. urology following
-LDL 159 on admission. Patient was not taking a statin prior to admission and says he is intolerant to Fenofibrate due to joint pain, atorvastatin caused him to have joint pain and feel sluggish, simvastatin caused joint pain and fatigue. Patient
refused to consider PCSK9 inhibitors before. Will need to have ongoing discussions about the repercussions of an untreated LDL of 159 and known CAD. 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
-remains with LE edema. maintaining negative fluid balance overnight. diuresis per surgical team. back on OP eplerenone
-PT/OT/OOB
HPI: Patient came to [facility] today with chest pain and GROSS and cardiology has been consulted. Patient last saw Dr. Lomax in the office 12/07/22 and complained of chest pain and GROSS, but had previously completed a Lexiscan mibi 09/17/22 that showed a small
area of mildly decreased perfusion that was fixed in the mid inferior and apical inferior and partially improved with prone imaging. When patient complained of recurrent symptoms at the 12/07/22 office visit he was recommended PCSK9 inhibitor for
untreated hyperlipidemia and a coronary calcium score, but he declined and did not come back to the office. Patient says that since the beginning of the summer he has had a rapid deterioration in his activity levels due to exertional intolerance. He
describes chest pain from shoulder to shoulder and GROSS when he walks more than 10 yards. He says that if he tries to complete too much activity that he vomits. No resting chest pain or GROSS. No substernal pain and no radiation to his neck or jaw. He
has experience similar symptoms for more than 1 year, but happening at lower levels of activity now. Patient with chronic LE edema that has been present for months. He says edema is there even in the morning when he wakes up. He also complains of
bloating and at one point had lost 10 lbs, but then gained the weight back quickly and has not gained any additional weight. He says that despite this he thinks his pants are looser at the waist than before. He has HTN that is managed by Nephrology
using Cardura, eplerenone and losartan. His resting BP is 150/88 in the ER and he has similar readings at home. He also has a h/o mild by last echo almost 2 years ago. Patient says that he has described his symptoms to family members who are
physicians and also to friends and they all feel that he has CAD and that he needs a stent so this is the reason he came to [facility] today and not months ago.
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
Subjective
Date of Service: May 05, 2024
feels as though urine is clearing. no CP
Objective
Labs:
05/05/24 04:56
05/05/24 04:56
Labs
Hgb 10.2 g/dL (13.0-18.0) L 05/05/24 04:56
Hct 29.5 % (39.0-52.0) L 05/05/24 04:56
Plt Count 219 10^3/uL (130-400) 05/05/24 04:56
PT 16.3 Sec (11.4-14.6) H 04/29/24 14:39
INR 1.30 04/29/24 14:39
APTT 38.5 Sec (23.4-35.0) H 04/29/24 14:39
Sodium 136 mmol/L (135-145) 05/05/24 04:56
Potassium 4.5 mmol/L (3.5-5.1) 05/05/24 04:56
BUN 15 mg/dl (9-20) 05/05/24 04:56
Creatinine 0.8 mg/dL (0.7-1.3) 05/05/24 04:56
Glucose 103 mg/dl (70-99) H 05/05/24 04:56
Vital Signs and I&O:
Vital Signs
Temp Pulse Resp BP Pulse Ox
98.1 F 77 20 124/72 95
05/05/24 11:17 05/05/24 11:20 05/05/24 11:17 05/05/24 11:20 05/05/24 11:17
Vital Signs
Temp Pulse Resp BP Pulse Ox
98.1 F 77 20 124/72 95
05/05/24 11:17 05/05/24 11:20 05/05/24 11:17 05/05/24 11:20 05/05/24 11:17
Intake & Output
05/03/24 05/04/24 05/05/24 05/06/24
07:59 07:59 07:59 07:59
Intake Total 483.2 / 572.1 177.8 / 197.8 930 / 1180 510 / 510
Output Total 1325 / 1325 1800 / 2050 2200 / 2325 775 / 775
Balance -841.8 / -752.9 -1622.2 / -1852.2 -1270 / -1145 -265 / -265
Physical Exam
Physical Exam
GEN: No distress, awake, alert, oriented x3. sitting in chair
HEENT: supple, anicteric, mmm, eomi
LUNGS: CTA B/L, no wheezes/rales
CV: Reg, S1/S2, no murmur
EXT: No cyanosis, clubbing. 1+ edema of B/L LE
NEURO: Gross non-focal
SKIN: Warm, pink, dry. No rash. Sternotomy dressing c/d/i.
--- NOTE | 2024-05-05 15:17 | PTCARENOTE ---
Ambulated in hallway for approx 200 feet. Needed multiple rest breaks but tolerated well. Leg strap placed for better esqueda cath management. Urine remains punch colored. VSS. Assessment unchanged from prior.
--- NOTE | 2024-05-05 20:00 | PTCARENOTE ---
Received pt from [facility]. pt resting comfortably in chair. pt is AAOx4. pt needs x2 assistants to stand and uses a rolling walker. NSR on monitor, VSS. heart sounds audible, radial and DP pulses palpable, +1-2 pitting BELTRAN. lungs clear, diminished
at bases, GROSS, sp2 95% on RA. hypoactive BS x4 quadrants, abdomen, firm, large/round, non tender. esqueda catheter in place per urology due to hematuria, blood/ blood clots still present in urine. surgical sites maintained. PIV maintained. [facility] call lanier within reach. will continue to monitor.
[2024-05-05] MEDS: MAGNESIUM OXIDE 500 MG PO (20:40)
[2024-05-05] MEDS: INSPRA 75 MG PO (21:59)
[2024-05-05] MEDS: CLARITIN 10 MG PO (21:59)
[2024-05-05] MEDS: CARDURA 4 MG PO (22:00)
[2024-05-05] MEDS: SINGULAIR 10 MG PO (22:00)
[2024-05-06] VITALS (12 sets, daily range): BP systolic 95–140; BP diastolic 42–80; PULSE 71–79; O2SAT 97; BMI 38.3
--- NOTE | 2024-05-06 | PTCARENOTE ---
Pt assessment unchanged. NSR on monitor. VSS. pt resting comfortably in bed. call lanier within reach. will continue to monitor.
[2024-05-06] MEDS: SENOKOT-S PO (00:22)
[2024-05-06 03:40] LABS: Hematocrit 30.2 % (39.0-52.0); Hemoglobin 10.4 g/dL (13.0-18.0); Mean Corp Hgb Conc. 34.4 g/dL (33.0-37.0); Mean Corpuscular Hgb 31.6 pg (27.0-31.0); Mean Corpuscular Volume 91.8 fL (80.0-94.0); Mean Platelet Volume 9.4 fL (7.4-10.4); Platelet Count 252 10^3/uL (130-400); Red Blood Cell Count 3.29 10^6/uL (4.70-6.10); Red Cell Dist. Width 12.9 % (11.5-14.5); White Blood Cell Count 9.8 10^3/uL (4.8-10.8)
--- NOTE | 2024-05-06 04:00 | PTCARENOTE ---
Pt assessment unchanged. VSS. NSR on monitor. labs drawn and sent. call lanier within reach. will continue to monitor.
[2024-05-06 04:05] LABS: Blood Urea Nitrogen 14 mg/dl (9-20); Calcium 8.6 mg/dl (8.4-10.2); Carbon Dioxide 28 mmol/L (22-30); Chloride 102 mmol/L (98-107); Estimated Creatinine Clearance 109 ml/min; Glucose 106 mg/dl (70-99); Magnesium 2.3 mg/dl (1.6-2.3); Potassium 4.6 mmol/L (3.5-5.1); Sodium 136 mmol/L (135-145); eGFR > 60.00
--- NOTE | 2024-05-06 04:37 | W.PN.CT ---
Today's Communication / Plan
-
Plan:
-No major issues overnight. Hemodynamically and neurologically intact
-Converted to NSR 05/03 after 14hrs of a-fib. Tolerating Toprol XL and Amiodarone
-Recurrent hematuria has resolved
-Will discuss resumption of Plavix today. Eventual DOAC/NOAC given postop a-fib
-Esqueda reinserted 05/01/24 for postop urinary retention. Urology following and recommend discharge with esqueda
-Hyponatremia has resolved
-Cont. current meds (ASA, Zetia, Cardura, Inspra, Protonix). Intolerant of statins
-Encourage IS, OOB
-Ambulate/ PT/OT following and recommend placement to SNF
-Physiatry consult placed
-Awaiting SNF ([facility]) placement
Assessment / Plan
-
Assessment:
-Mv-CAD - s/p CABG x 3 (GONZALEZ to LAD, GSV to OM, GSV to RPDA) by Dr. Martinez on 04/29/24, pod #7
- Intraop ARIS: normal biventricular function, unchanged from prior
- Pt. w/ bradycardia sinus rhythm in the 40s under GA. Required V-pacing initially, regained NSR w/ BBB in 70s
- HTN/HLD
- Preop bradycardia in 40's
- Pre-existing RBBB
- ASUNCION, not on CPAP
- Class 2 obesity (BMI 38.7)
- Prediabetes (A1C 5.9)
- Asthma
- COPD
- Former smoker
- EtOH daily (beer or wine)
- Scattered R sided pulmonary nodules upto 1.3cm on chest CT 04/28/24
- R adrenal adenoma 1.9 cm
- Acute postop bifascicular block (new RBBB and LAFB) with bradycardia, requiring pacing briefly postop - will hold BB and Amio
- Acute postop blood loss anemia
- Acute postop hypovolemia with subsequent hypervolemia
- Acute postop atelectasis
- Acute postop hematuria
- Acute postop urinary retention
- Brief SVT 160s on 04/30, followed by V-pacing @60 bpm
- Acute postop a-fib with RVR (150's)
- Acute postop hyponatremia, 134
Discussed patient care with: Cardiology, Nursing, Respiratory Therapy, Pharmacy and Care Team
Subjective
Procedure
- s/p CABG x 3 (GONZALEZ to LAD, GSV to OM, GSV to RPDA) by Dr. Martinez on 04/29/24
-
Date of Service: May 06, 2024
pt c/o mild incisional pain, otherwise feels well. Ambulating with PT/OT
Objective Data
-
Lab Results
05/06/24 03:16
05/06/24 03:16
PT 16.3 Sec (11.4-14.6) H 04/29/24 14:39
INR 1.30 04/29/24 14:39
APTT 38.5 Sec (23.4-35.0) H 04/29/24 14:39
Vital Signs
Vital Signs
Temp Pulse Resp BP Pulse Ox
98.2 F 77 20 104/42 95
05/06/24 04:30 05/06/24 04:30 05/06/24 04:30 05/06/24 04:30 05/06/24 04:30
CT Intake/Output/Weight
05/05/24 05/05/24 05/06/24
06:59 18:59 06:59
Intake Total 310 / 930 870 / 870
Output Total 1200 / 2200 900 / 1805 905 / 1805
Balance -890 / -1270 -30 / -935 -905 / -935
SaO2: 95 (RA)
Physical Exam
-
General: Awake, Oriented and AOx3
Cardiovascular: Regular rate & rhythm, No Murmurs, No Rub and No Gallop
Respiratory: Decreased Breath Sounds (at bases, otherwise clear)
Sternum: Stable
Incision: Clean, Dry, Intact and Dressing Intact
Extremities: No Edema
Data Reviewed
-
Lab Results: Results Reviewed
Medications: Active Meds Reviewed
Chest X-Ray: Report Reviewed and Image Reviewed
ECG: Report Reviewed and Image Reviewed
[2024-05-06] MEDS: TYLENOL 1000 MG PO ×3 (06:34→21:17)
[2024-05-06] MEDS: NSS IV (07:22)
[2024-05-06] MEDS: FLUSH (NSS) 1 FLUSH IV (07:51)
[2024-05-06] MEDS: LIDOCAINE 4% PATCH 1 PATCH TOPICAL (07:53)
[2024-05-06] MEDS: PACERONE 200 MG PO ×2 (07:53→19:49)
[2024-05-06] MEDS: NEURONTIN PO ×3 (07:53→21:17)
[2024-05-06] MEDS: TOPROL XL 25 MG PO ×2 (07:53→19:49)
[2024-05-06] MEDS: REGLAN PO ×3 (07:53→14:45)
[2024-05-06] MEDS: VITAMIN D3 (cholecalciferol) 100 MCG PO (07:53)
[2024-05-06] MEDS: VITAMIN B-12 500 MCG PO (07:54)
[2024-05-06] MEDS: ZINC SULFATE 220 MG PO (07:54)
[2024-05-06] MEDS: MUCINEX 600 MG PO ×2 (07:54→19:48)
[2024-05-06] MEDS: PROTONIX 40 MG PO (07:54)
[2024-05-06] MEDS: ZETIA 10 MG PO (07:55)
[2024-05-06] MEDS: LOW STRENGTH ASPIRIN 81 MG PO (07:55)
[2024-05-06] MEDS: VITAMIN C 500 MG PO (07:55)
[2024-05-06] MEDS: MAGNESIUM OXIDE 500 MG PO ×2 (07:55→19:48)
[2024-05-06] MEDS: SENOKOT-S 1 TABLET PO ×2 (07:55→15:58)
--- NOTE | 2024-05-06 08:00 | PTCARENOTE ---
Assumed care of patient. Walking rounds completed with previous RN. Pt assessed while he was sitting in the chair. Pt alert and oriented x4. Pt denies pain and nausea. C/o shortness of breath with activity. LIM with equal strength throughout. NSR on
tele with rates in the 70s. BP stable 120/71. Bilateral radial pulses palpable. Generalized edema. POX 96% on RA. Lungs diminished in the bases. Occasional nonproductive weak cough. IS encouraged-1000ml achieved. Abdomen soft, round, obese,
nontender. +BS. Calzada catheter intact draining adequate amounts of clear yellow urine. Sternal incision covered with Aquacel-CDI. Old chest tube sites approximated with sutures, TAL. Right groin puncture site approximated, SMOKING PIPES CLEANER. Right knee SVG
harvest site approximated and SMOKING PIPES CLEANER. Right hand 22g PIV intact. See MAR for medication administration. See worklist for complete nursing assessment. Plan of care reviewed and patient in agreement.
[2024-05-06] MEDS: NON-FORMULARY ITEM 1 INH INH (08:11)
--- NOTE | 2024-05-06 09:33 | CON.MD ---
Documented by User: Claudia Beatty MD, Resident 05/06/24 11:20
Consultation - Medical
-
Referring Provider: Juan Cruz
Chief Complaint: Debility
History of Present Illness:
The patient is a 73 year-old male who presented to ER on 04/27 with shortness of breath and shoulder/chest pain. He reported a significant exertional dyspnea which got worsen over past 2 months. The patient was admitted and his catheterization lab
reports was discussed with CT team. The patient had CABG on 04/29/24. After the surgery, the patient had mild hematuria and urology saw the patient. By urology report, the hematuria was likely secondary to decompression after catheter
re-insertion. Urology recommended to hold Plavix 24-48 hours and continue aspirin.Today the patient was started on Plavix. He was seen in chair today with catheter and his urine color was yellow. The patient reported that he is willing to be in
rehab unit to gain his physical skills again.
Past Medical History: HT, HL
Procedure History: No
Family History: Father of complications from hip surgery and mother
with CVA
Social History:
Functional Level Premorbidly: Independent, has cane
Functional Level Currently:Transfer: -Sit to stand- Minimal assistance -Stand to sit- Minimal assistance, Ambulation:Patient ambulates 100x2 with RW
with CG/Min A. -Gait comment -slow
Tobacco: Former smoker
Alcohol: Wine (daily)
Drug use: Denies
Lives with:
24-hour assistance available:
Number of floors: 2
# steps to enter: a few
# steps to second floor: many
Potential First floor set up:available
Driving: yes
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
Allergies
Allergy/AdvReac Type Severity Reaction Status Date / Time
Awzroou-SPR-UmO Reductase Allergy Lethargy, Verified 04/28/24 22:19
Inhibitor Issues
with
mobility,
and Pain
Home Medications
ascorbic acid (vitamin C) 500 mg tablet (Vitamin C) 500 mg PO DAILY Supplement 04/27/24
aspirin 325 mg tablet 325 mg PO DAILY Blood Clot Prevention/Tx 04/27/24
bimatoprost 0.01 % eye drops (Lumigan) 1 drp BOTH EYES HS Eye Condition 04/27/24
cholecalciferol (vitamin D3) 50 mcg (2,000 unit) tablet (Vitamin D3) 100 mcg PO DAILY Supplement 04/27/24
cyanocobalamin (vitamin B-12) 500 mcg tablet 500 mcg PO DAILY Supplement 04/27/24
doxazosin 4 mg tablet 4 mg PO HS Urinary Issue 04/27/24
eplerenone 25 mg tablet 75 mg PO HS Lung/Breathing Issues 04/27/24
ezetimibe 10 mg tablet 10 mg PO DAILY High Cholesterol 04/27/24
fluticasone furoate 200 mcg-vilanterol 25 mcg/dose inhalation powder (Breo Ellipta) 1 inh inhalation R DAILY Congestion 04/27/24
loratadine 10 mg tablet (Claritin) 10 mg PO HS Allergies 04/27/24
losartan 25 mg tablet 25 mg PO HS Blood Pressure 04/27/24
montelukast 10 mg tablet 10 mg PO HS ASTHMA 04/27/24
dxmjumvc-iju-xhnwt acid 0.4 mg-lycopene 300 mcg-lutein 250 mcg tablet (Centrum Silver) 1 tab PO DAILY Supplement 04/27/24
saw palmetto 450 mg capsule 900 mg PO DAILY Supplement 04/27/24
vitamin B complex 1 tab PO DAILY Supplement 04/27/24
zinc sulfate 50 mg zinc (220 mg) tablet 50 mg PO DAILY Supplement 04/27/24
Review of Systems:
Constitutional: (x) Normal _
Eye: (x) Normal _
Ear/Nose/Throat: (x) Normal _
Respiratory: (x) Normal _
Cardiovascular: (x) Has the fermín of the incision of CABG surgery
Gastrointestinal: (x) Normal _
Genitourinary: (x)with Esqueda
Musculoskeletal: (x) Normal _
Integumentary: (x) Normal _
Neurologic: (x) Normal _
Psychiatric: (x) Normal _
Endocrine: (x) Normal _
Hematologic/Lymphatic: (x) Normal _
Allergic/Immunologic: (x) Normal _
Vitals:
Vital Signs
Temp Pulse Resp BP Pulse Ox
98.2 F 77 18 120/71 96
05/06/24 08:00 05/06/24 10:00 05/06/24 08:14 05/06/24 08:00 05/06/24 08:00
Physical Exam:
General Appearance/Observation: Well-developed, well-nourished individual in no apparent distress.
Pain/Comfort Assessment: some on wound site
Mood/Affect: Appropriate
Integumentary/Operative Site:
Pressure Ulcer Evaluation: absent over heels.
Eyes: Conjunctiva/Lids: normal Pupils: pupils equal round and reactive to light and Accommodation
Ears/Nose/Throat: oral mucosa moist, throat clear. Lips/Teeth/Gums: normal
Neck: No muscle spasm or tenderness
Cardiovascular: Heart: regular, no murmur
Pulses: dorsalis pedis 2+ bilaterally
Respiratory: Respiratory Effort/Chest Expansion: normal Auscultation: Clear to auscultation bilaterally
Gastrointestinal: abdomen not tender, no distension, normal abdominal bowel sounds
Genitourinary: Esqueda present
Rectal Exam: Deferred
Extremities: Edema: None Cyanosis: None Trophic changes: None
Neurology Exam:
Orientation: Alert, Oriented to self, Time, Place
Memory: Intact immediately and at 3 minutes
Comprehension: Intact
Two step command: Intact
Naming: Intact
Cranial Nerves:
CNII: Pupillary light reflex: Intact Visual Field: Intact
CN III, IV, : Extraocular muscles: Intact
CN V: Facial Sensation at Forehead: Intact, Maxilla: Intact, Mandible: Intact
CN VII: Facial movement: Symmetric
CN VIII: Hearing: Normal
CN IX/X: Speech & swallow: Normal, Position of Uvula: Midline
CN XI: Shoulder shrug: Symmetric
CN XII: Tongue protrusion: Midline
Sensory:
Light touch: Intact in bilateral upper and lower extremities
Reflexes:
Biceps: 2+ bilaterally
Brachioradialis: 2+ bilaterally
Triceps: 2+ bilaterally
Patellar: 2+ bilaterally
Achilles: 2+ bilaterally
Babinski: Down going bilaterally
Clonus: None
Ora: Negative bilaterally
Cerebellar: Dysmetria/Ataxia: None
Musculoskeletal:
Motor: (Manual muscle scale 0-5)
Bilateral Upper Proximal motor muscle strength: 4/5 distal( WE/FA) 5/5
Bilateral Lower Proximal motor muscle strength: 4/5 distal( DF/PF) 5/5
Tone: Normal in all extremities
Range of Motion: Passively within normal limits in all extremities
Lab Results
Laboratory Data
PT 16.3 Sec (11.4-14.6) H 04/29/24 14:39
APTT 38.5 Sec (23.4-35.0) H 04/29/24 14:39
Total Bilirubin 0.8 mg/dl (0.2-1.3) 04/27/24 11:16
AST 31 U/L (17-59) 04/27/24 11:16
ALT 27 U/L (0-50) 04/27/24 11:16
Alkaline Phosphatase 47 U/L (38-126) 04/27/24 11:16
Lab Results - Hematology
05/04/24 05/05/24 05/06/24
05:25 04:56 03:16
WBC 9.1 9.3 9.8
Lab Results - Chemistry
05/04/24 05/05/24 05/06/24
05:25 04:56 03:16
BUN 18 15 14
Creatinine 0.8 0.8 0.8
Estimated Creat Clear 108 108 109
Results: as per HPI
Chest CT on 04/28/24
IMPRESSION:
There are scattered right-sided pulmonary nodules measuring up to 1.3 cm within the medial right lower lobe. Evaluation with PET or tissue sampling may be considered.
Extensive coronary artery calcifications. The minimal retrosternal distance is approximately 2.6 cm.
1.9 cm right adrenal nodule consistent with adenoma.
Assessment: The patient was presented to ER about 10 days ago with SOB and chest pain and had CABG surgery on 04/29/24. He had cardiac arrhythmia and hematuria, hypovolemia after the surgery which were resolved and the patient is being followed up.
Before the hospital admission, the patient was independent with his daily work and mobilization and willing to gain his physical skills at rehab unit.
Plan
PM&R PT/OT in acute rehab unit to increase independence with ADLs, improve balance, coordination, endurance, strength, mobility, community reintegration, decreased burden of care on others and family education.
Debility after CABG: Continue PT/OT, follow up for other comorbidities
Cardiac Arrhythmia: Converted to NSR recently after A-fib period. Tolerating Toprol XL and Amiodarone
Hematuria: Resolved. The patient will keep having catheter. Urology recommend discharge with esqueda. ( Esqueda reinserted 05/01/24)
Anticoagulant: Plavix today and continue aspirin 81 mg
Hyponatremia: resolved
GERD Prophylaxis: Protonix
HLD: Intolerant of statins. Not interested in SC agents
ASUNCION: Not on CPAP.
Pulmonary: Continue Incentive spirometry (had an acute postop atelectasis)
Pulmonary Nodules: There are scattered right-sided pulmonary nodules measuring up to 1.3 cm within the medial right lower lobe. Evaluation with PET or tissue sampling may be considered. Pulmonology input would be appreciated.
Obesity: Continue to curriculum counselor patient about diet adjustments to control obesity. Body habitus and increased force to move body and extremities causes further difficulty with functional tasks.
Safety: Continue to reinforce assistance with all transfers.
Dispo (date/plan/equipment needs): Acute Rehab
Summary of recommendations:
- Discharge Destination: Acute inpatient rehabilitation
Please do not hesitate to contact me with any questions or concerns. Thanks Dr Leal for involving me in this patient`s care.
Claudia Beatty MD
[facility]

Documented by User: Naveen Leal MD 05/06/24 15:12
Consultation - Medical
-
Referring Provider: Juan Cruz
Chief Complaint: Debility
History of Present Illness:
The patient is a 73 year-old male who presented to ER on 04/27 with shortness of breath and shoulder/chest pain. He reported a significant exertional dyspnea which got worsen over past 2 months. The patient was admitted and his catheterization lab
reports was discussed with CT team. The patient had CABG on 04/29/24. After the surgery, the patient had mild hematuria and urology saw the patient. By urology report, the hematuria was likely secondary to decompression after catheter
re-insertion. Urology recommended to hold Plavix 24-48 hours and continue aspirin.Today the patient was started on Plavix. He was seen in chair today with catheter and his urine color was yellow. The patient reported that he is willing to be in
rehab unit to gain his physical skills again.
Past Medical History: Hypertension, hyperlipidemia
Procedure History: Denies
Family History: Father of complications from hip surgery and mother
with CVA
Social History:
Functional Level Premorbidly: Independent, has cane
Functional Level Currently:Transfer: -Sit to stand- Minimal assistance -Stand to sit- Minimal assistance, Ambulation:Patient ambulates 100x2 with RW
with CG/Min A. -Gait comment -slow
Tobacco: Former smoker
Alcohol: Wine (daily)
Drug use: Denies
Lives with:
24-hour assistance available:
Number of floors: 2
# steps to enter: a few
# steps to second floor: many
Potential First floor set up:available
Driving: yes
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
Allergies
Allergy/AdvReac Type Severity Reaction Status Date / Time
[id number]-[id number]-[id number] Reductase Allergy Lethargy, Verified 04/28/24 22:19
Inhibitor Issues
with
mobility,
and Pain
Home Medications
ascorbic acid (vitamin C) 500 mg tablet (Vitamin C) 500 mg PO DAILY Supplement 04/27/24
aspirin 325 mg tablet 325 mg PO DAILY Blood Clot Prevention/Tx 04/27/24
bimatoprost 0.01 % eye drops (Lumigan) 1 drp BOTH EYES HS Eye Condition 04/27/24
cholecalciferol (vitamin D3) 50 mcg (2,000 unit) tablet (Vitamin D3) 100 mcg PO DAILY Supplement 04/27/24
cyanocobalamin (vitamin B-12) 500 mcg tablet 500 mcg PO DAILY Supplement 04/27/24
doxazosin 4 mg tablet 4 mg PO HS Urinary Issue 04/27/24
eplerenone 25 mg tablet 75 mg PO HS Lung/Breathing Issues 04/27/24
ezetimibe 10 mg tablet 10 mg PO DAILY High Cholesterol 04/27/24
fluticasone furoate 200 mcg-vilanterol 25 mcg/dose inhalation powder (Breo Ellipta) 1 inh inhalation R DAILY Congestion 04/27/24
loratadine 10 mg tablet (Claritin) 10 mg PO HS Allergies 04/27/24
losartan 25 mg tablet 25 mg PO HS Blood Pressure 04/27/24
montelukast 10 mg tablet 10 mg PO HS ASTHMA 04/27/24
xubasurw-wgc-dciep acid 0.4 mg-lycopene 300 mcg-lutein 250 mcg tablet (Centrum Silver) 1 tab PO DAILY Supplement 04/27/24
saw palmetto 450 mg capsule 900 mg PO DAILY Supplement 04/27/24
vitamin B complex 1 tab PO DAILY Supplement 04/27/24
zinc sulfate 50 mg zinc (220 mg) tablet 50 mg PO DAILY Supplement 04/27/24
Review of Systems:
Constitutional: (x) abNormal _fatigue
Eye: (x) Normal _
Ear/Nose/Throat: (x) Normal _
Respiratory: (x) Normal _
Cardiovascular: (x) Has the fermín of the incision of CABG surgery
Gastrointestinal: (x) Normal _
Genitourinary: (x)with Esqueda
Musculoskeletal: (x) abNormal _decreased muscle strength in the hips
Integumentary: (x) Normal _
Neurologic: (x) Normal _
Psychiatric: (x) Normal _
Endocrine: (x) Normal _
Hematologic/Lymphatic: (x) Normal _
Allergic/Immunologic: (x) Normal _
Vitals:
Vital Signs
Temp Pulse Resp BP Pulse Ox
98.2 F 77 18 120/71 96
05/06/24 08:00 05/06/24 10:00 05/06/24 08:14 05/06/24 08:00 05/06/24 08:00
Physical Exam:
General Appearance/Observation: Well-developed, well-nourished male in no apparent distress.
Pain/Comfort Assessment: Mild chest pain particular with cough or deep breaths.
Mood/Affect: Appropriate
Integumentary/Operative Site:
Pressure Ulcer Evaluation: Chest incision with scab, healing, drain sites with sutures healing. Right inner calf incision with ludwin clean dry and intact.
Eyes: Conjunctiva/Lids: normal Pupils: pupils equal round and reactive to light and Accommodation
Ears/Nose/Throat: oral mucosa moist, throat clear. Lips/Teeth/Gums: normal
Neck: No muscle spasm or tenderness
Cardiovascular: Heart: regular, no murmur
Pulses: dorsalis pedis 2+ bilaterally
Respiratory: Respiratory Effort/Chest Expansion: normal Auscultation: Clear to auscultation bilaterally
Gastrointestinal: abdomen not tender, no distension, normal abdominal bowel sounds
Genitourinary: Esqueda with slightly dark urine, slight blood tinge, no clots
Rectal Exam: Deferred
Extremities: Mild right greater than left lower extremity edema: None Cyanosis: None Trophic changes: None
Neurology Exam:
Orientation: Alert, Oriented to self, Time, Place
Memory: Intact for recent medical concerns
Comprehension: Intact
Two step command: Intact
Naming: Intact
Cranial Nerves:
CNII: Pupillary light reflex: Intact
CN III, IV, : Extraocular muscles: Intact
CN VII: Facial movement: Symmetric
CN VIII: Hearing: Normal
CN IX/X: Speech & swallow: Normal, Position of Uvula: Midline
CN XI: Shoulder shrug: Symmetric
CN XII: Tongue protrusion: Midline
Sensory:
Light touch: Intact in bilateral upper and lower extremities
Reflexes:
Babinski: Down going bilaterally
Clonus: None
Ora: Negative bilaterally
Cerebellar: Dysmetria/Ataxia: None
Musculoskeletal:
Motor: (Manual muscle scale 0-5)
Bilateral Upper Proximal motor muscle strength: 4/5 distal( WE/FA) 5/5
Bilateral Lower Proximal motor muscle strength: 4/5 distal( DF/PF) 5/5
Tone: Normal in all extremities
Range of Motion: Passively within normal limits in all extremities
Lab Results
Laboratory Data
PT 16.3 Sec (11.4-14.6) H 04/29/24 14:39
APTT 38.5 Sec (23.4-35.0) H 04/29/24 14:39
Total Bilirubin 0.8 mg/dl (0.2-1.3) 04/27/24 11:16
AST 31 U/L (17-59) 04/27/24 11:16
ALT 27 U/L (0-50) 04/27/24 11:16
Alkaline Phosphatase 47 U/L (38-126) 04/27/24 11:16
Lab Results - Hematology
05/04/24 05/05/24 05/06/24
05:25 04:56 03:16
WBC 9.1 9.3 9.8
Lab Results - Chemistry
05/04/24 05/05/24 05/06/24
05:25 04:56 03:16
BUN 18 15 14
Creatinine 0.8 0.8 0.8
Estimated Creat Clear 108 108 109
Results: as per HPI
Chest CT on 04/28/24
IMPRESSION:
There are scattered right-sided pulmonary nodules measuring up to 1.3 cm within the medial right lower lobe. Evaluation with PET or tissue sampling may be considered.
Extensive coronary artery calcifications. The minimal retrosternal distance is approximately 2.6 cm.
1.9 cm right adrenal nodule consistent with adenoma.
Assessment: 73-year-old [facility] ([facility], [facility]) patient was presented with SOB and chest pain and had CABG surgery on 04/29/24. He had cardiac arrhythmia and hematuria, hypovolemia after the surgery which were resolved and the patient is being followed
up. Before the hospital admission, the patient was independent with his daily work and mobilization and willing to gain his physical skills at rehab unit.
PM&R PT/OT to increase independence with ADLs, improve balance, coordination, endurance, strength, mobility, community reintegration, decreased burden of care on others and family education.
Debility after CABG: Continue PT/OT, Sternal precautions.� Aspirin, statin, Xarelto, BP control.� Monitor incision, pain control.
Cardiac Arrhythmia: Converted to NSR recently after A-fib period. Tolerating Toprol XL and Amiodarone
Anticoagulant: Plavix and aspirin 81 mg
Hyponatremia: resolved
Postoperative anemia: Likely multifactorial.� Continue to monitor.
GERD Prophylaxis: Protonix
HLD: Intolerant of statins. Not interested in subcutaneous agents
ASUNCION: Not on CPAP.
Pain: acetaminophen or oxycodone as needed.
Bowel: Colace and Senna, PRN bisacodyl.
Bladder: Esqueda consider trial of void in a couple days with time void, PVRs, PRN straight cath. Has hematuria likely from trauma. Removal of Esqueda will help with this.
-Hematuria: Resolved holding Plavix. Urology recommend discharge with esqueda. ( Esqueda reinserted 05/01/24). Can do a void trial when more ambulatory. Some mild hematuria after resuming Plavix although minimal. Continue to monitor. Minimize tugging
on the catheter. Hematuria will likely improve with Esqueda removed.
Pulmonary: Incentive spirometry (had an acute postop atelectasis)
Pulmonary Nodules: There are scattered right-sided pulmonary nodules measuring up to 1.3 cm within the medial right lower lobe. Evaluation with PET or tissue sampling may be considered. Pulmonology input would be appreciated.
DVT Prophylaxis: Mechanical, please comment if heparin can be used for chemoprophylaxis.
Morbid obesity: Continue to curriculum counselor patient about diet adjustments to control obesity. Body habitus and increased force to move body and extremities causes further difficulty with functional tasks.
Safety: Continue to reinforce assistance with all transfers.
Dispo (date/plan/equipment needs): Acute Rehab
Summary of recommendations:
- Discharge Destination: Acute inpatient rehabilitation
DVT Prophylaxis: Mechanical, please comment if heparin can be used for chemoprophylaxis.
Please do not hesitate to contact me with any questions or concerns. Thanks Dr Leal for involving me in this patient`s care.
Claudia Beatty MD
[facility]
Attending Statement:
I saw and examined the patient today. Reviewed care plan with patient, nursing, and resident. I agree with the above subjective and physical exam, and plan as documented by resident with adjustments made as necessary. Patient with CABG with limited
mobility secondary to sternal precautions. Patient with morbid obesity, hematuria with urinary retention, postoperative anemia. Will benefit from acute inpatient rehabilitation program upon hospital discharge.
[2024-05-06] MEDS: PLAVIX 75 MG PO (09:53)
--- NOTE | 2024-05-06 12:06 | W.PN.CARDCBS ---
Addendum entered and electronically signed by Hood Douglass MD 05/06/24 12:23:
I saw and examined the patient.
The Advertising Rep's note was reviewed and I agree with the note.
Comment:
GEN: No distress, awake, Ox3
HEENT: supple, anicteric, mmm
LUNGS: CTA, no wheezes/rales
CV: Reg, S1/S2, 1/6 syst LSB, no rub
ABD: soft, BS+, NT/ND
EXT: No edema
NEURO: Gross non-focal
SKIN: sternotomy
PLan:
Overall doing well. Remains in sinus rhythm. Hematuria has cleared. Continue aspirin and Plavix.
With his paroxysmal atrial fibrillation he should eventually go on full anticoagulation. Hemoglobin currently stable at 10.4.
Continue metoprolol and amiodarone.
Okay for rehab.
Original Note:
Today's Communication / Plan
-
in SR
hematuria improving. remains with esqueda. plavix resumed. eventual OAC
follow volume status
for SNF upon DC
Impression / Plan
-
PCP: Dr. Guy
Cardiology: Dr. CARLITO Lomax, last seen 12/2022
Nephrology: Dr. Lees
Impression:
Chest pain and GROSS on admission with serially undetectable Troponin 04/27/24
CAD
multivessel CAD by cath 04/28/24
s/p CABG with ENRIQUEZ to LAD, SVG to OM and SVG to RPDA 04/29/24
Paroxysmal atrial tachycardia/atrial fibrillation
HTN
Untreated hyperlipidemia due to statin intolerance and patient refusal of PCSK9 inhibitor meds
Mild by echo 06/2022
Morbid obese
cRBBB
LAFB
Sleep apnea
Echo 06/22/22: EF 70-75%, mild conc LVH, mild peak/mean 20/10 mmHg and NICKY 2.0 cm sq
Echo 04/27/24: EF 65 to 70%, moderate concentric LVH, mild with peak/mean 16/10 mmHg and NICKY 1.7 cm sq, no aortic insufficiency
Plan:
-Patient is s/p ENRIQUEZ to LAD, SVG to OM and SVG to RPDA 04/29/24
-had 14 hours of afib, converted to SR 05/03. remains in SR at this time, continue amiodarone/toprol
-presently on asa. urine clearing overnight. plavix tentatively to resume today. would recommend eventual anticoagulation ([id number] score of 3 for age, HTN, vasc disease) when ok from urology/surgery standpoint. remains with esqueda
-LDL 159 on admission. Patient was not taking a statin prior to admission and says he is intolerant to Fenofibrate due to joint pain, atorvastatin caused him to have joint pain and feel sluggish, simvastatin caused joint pain and fatigue. Patient
refused to consider PCSK9 inhibitors before. Will need to have ongoing discussions about the repercussions of an untreated LDL of 159 and known CAD.
-remains with LE edema and reported SOB with activity. diuresis per surgical team. back on OP eplerenone
-PT/OT/OOB
-plan for rehab upon DC, possible today
-OP cardiac follow up arranged
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
HPI: Patient came to [facility] today with chest pain and GROSS and cardiology has been consulted. Patient last saw Dr. Lomax in the office 12/07/22 and complained of chest pain and GROSS, but had previously completed a Lexiscan mibi 09/17/22 that showed a small
area of mildly decreased perfusion that was fixed in the mid inferior and apical inferior and partially improved with prone imaging. When patient complained of recurrent symptoms at the 12/07/22 office visit he was recommended PCSK9 inhibitor for
untreated hyperlipidemia and a coronary calcium score, but he declined and did not come back to the office. Patient says that since the beginning of the summer he has had a rapid deterioration in his activity levels due to exertional intolerance. He
describes chest pain from shoulder to shoulder and GROSS when he walks more than 10 yards. He says that if he tries to complete too much activity that he vomits. No resting chest pain or GROSS. No substernal pain and no radiation to his neck or jaw. He
has experience similar symptoms for more than 1 year, but happening at lower levels of activity now. Patient with chronic LE edema that has been present for months. He says edema is there even in the morning when he wakes up. He also complains of
bloating and at one point had lost 10 lbs, but then gained the weight back quickly and has not gained any additional weight. He says that despite this he thinks his pants are looser at the waist than before. He has HTN that is managed by Nephrology
using Cardura, eplerenone and losartan. His resting BP is 150/88 in the ER and he has similar readings at home. He also has a h/o mild by last echo almost 2 years ago. Patient says that he has described his symptoms to family members who are
physicians and also to friends and they all feel that he has CAD and that he needs a stent so this is the reason he came to [facility] today and not months ago.
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
Subjective
Date of Service: May 06, 2024
c/o some SOB with activity
Objective
Labs:
05/06/24 03:16
05/06/24 03:16
Labs
Hgb 10.4 g/dL (13.0-18.0) L 05/06/24 03:16
Hct 30.2 % (39.0-52.0) L 05/06/24 03:16
Plt Count 252 10^3/uL (130-400) 05/06/24 03:16
PT 16.3 Sec (11.4-14.6) H 04/29/24 14:39
INR 1.30 04/29/24 14:39
APTT 38.5 Sec (23.4-35.0) H 04/29/24 14:39
Sodium 136 mmol/L (135-145) 05/06/24 03:16
Potassium 4.6 mmol/L (3.5-5.1) 05/06/24 03:16
BUN 14 mg/dl (9-20) 05/06/24 03:16
Creatinine 0.8 mg/dL (0.7-1.3) 05/06/24 03:16
Glucose 106 mg/dl (70-99) H 05/06/24 03:16
Vital Signs and I&O:
Vital Signs
Temp Pulse Resp BP Pulse Ox
98.2 F 77 18 120/71 96
05/06/24 08:00 05/06/24 10:00 05/06/24 08:14 05/06/24 08:00 05/06/24 08:00
Vital Signs
Temp Pulse Resp BP Pulse Ox
98.2 F 77 18 120/71 96
05/06/24 08:00 05/06/24 10:00 05/06/24 08:14 05/06/24 08:00 05/06/24 08:00
Intake & Output
05/04/24 05/05/24 05/06/24 05/07/24
07:59 07:59 07:59 07:59
Intake Total 177.8 / 197.8 930 / 1180 870 / 1110 240 / 240
Output Total 1799 / 0 2200 / 2325 1805 / 1805
Balance -1622.2 / -1852.2 -1270 / -1145 -935 / -695 240 / 240
--- NOTE | 2024-05-06 12:38 | W.DCSUMMARY ---
Documented by User: DIPIKA Medina 05/08/24 13:04
Discharge Summary
Discharge Data
Date of Admission: 04/28/24
Date of Discharge: 05/08/24
-
Pending Results: No
Hospital Course
Primary care physician: Dena Guy
Outpatient clin asst: Naveen Lomax
Inpatient consultants: [facility], Urology
Procedures:
1. Coronary artery bypass grafting
Primary Diagnosis:
1. Coronary artery disease
Secondary Diagnoses:
1. Hypertension
2. Hyperlipidemia
3. Obesity (BMI 38.3)
4. BPH
5. Asthma
6. Prediabetes (A1c 5.9)
7. Obstructive sleep apnea�no CPAP use
8. Incidental CT T findin.9 right adrenal nodule and scattered right pulmonary nodules
9. Acute postoperative traumatic hematuria
10. Acute postoperative urinary retention with Calzada reinsertion
11. Acute postop bifascicular block (new RBBB and LAFB) with bradycardia
12. Acute postop blood loss anemia
13. Acute postoperative atrial fibrillation
HPI: 73-year-old male admitted to the emergency room on 04/28 with complaint of progressively worsening weight gain and shortness of breath (since summer) ability to walk more than 30 yards. Echocardiogram reported left ventricular ejection fraction
of 65-70%. There was mild aortic stenosis with peak and mean gradients of 16 and 10. Trace mitral regurgitation. Cardiac catheterization on 04/28 reported critical coronary artery disease.
Hospital course: On 04/29/2024, patient underwent CABG x 3 with ENRIQUEZ to LAD, SVG to OM, and SVG to RPDA by Dr. Kenney Martinez. Patient received no intraoperative blood return to CVICU with intermittent pacing deemed to have a 31 bradycardia coming
off pump. Postprocedure ARIS reported an EF of 55%. Patient had hematuria on arrival to CVICU. Patient did have a bifascicular block and had labile blood pressure requiring 750 mL of Lactated Ringer's. Patient was extubated to BiPAP.
Postoperative day 1: Patient maintained sinus rhythm and beta-akil was initiated. Patient received Zofran and Reglan for nausea. Plavix was held due to hematuria. Urology was consulted and felt that hematuria was related to trauma from Calzada
insertion.
Postoperative day #2: Calzada was discontinued. Chest were tubes removed. Patient had urinary retention (more than 1000 cc) requiring straight cath and Calzada reinsertion per urology.
Postoperative day #3: Urology recommendation was to keep Calzada for 1 week and follow-up as an outpatient. Patient developed rapid A-fib requiring beta-akil, amiodarone bolus and drip. Patient had A-fib burden of 14 hours.
Postoperative day #4: Patient self cardioverted to sinus rhythm rate 50.
Postoperative day #5: Patient again developed hematuria following PT OT. Plavix continued to be held. Toprol increased to 25 mg twice daily. Lasix was given for weight gain and fluid overload.
Postoperative day #6: Urine output had cleared. Temporary pacing wires were clipped to skin level. Urology recommended holding Plavix for another 24 hours.
Postoperative day #7: Urine remained clear and urology agreeable to resume Plavix. Calzada will be maintained on transfer to rehab. Physiatry saw patient and recommended acute rehab; however, insurance denied admission.
Postoperative day #8: Voiding trial was successful, with patient urinating 300cc. Subsequent bladder scan with residual of 700 cc reported to urologist. Patient states this has been an ongoing problem and does not want Calzada. Urologist in
agreement to discharge home with understanding that patient is at higher risk for UTI and need for Calzada reinsertion. Patient instructed that he should follow-up with the urologist as an outpatient. Per cardiology, aspirin and Eliquis will be
initiated on discharge due to the 14-hour burden of A-fib. Patient ambulated with cardiac rehab quite stable for discharge to home
Home medication changes:
see below
Discharge Plan
-
Patient Disposition: Home (Routine Discharge)
Discharge Diagnosis/Procedures: CABG
Condition: Fair
Diet: Low Cholesterol and Low Sodium
Activity: No strenuous activity
Driving Restrictions: Not until seen by your Dr
Bathing Restrictions: OK to Shower
Other Services: Cardiac Rehab
Specialty Instructions: Weigh Daily- Call MD for wt gain/loss 3 lbs overnight/5 lbs in 1 week
Activity Restrictions/Additional Instructions:
ACTIVITY:
-No strenuous activity: no heavy lifting, pushing, pulling anything over 15 pounds for one month
-continue to use stairs as tolerated
DRIVING RESTRICTIONS:
-No driving for one month or until approved by your surgeon
WOUND CARE:
-Shower daily. Use soap & water.
-No lotions, creams or powders on incision area.
DIET:
-continue a low fat/low cholesterol diet.
-IF you are diabetic, continue carb controlled diet.
CARDIAC REHAB:
-Please make appointment to start in 5-6 weeks with your local hospital program. (See Cardiac Rehabilitation Discharge Booklet).
SPECIALTY INSTRUCTIONS:
-Weigh yourself daily. Call your physician for any weight gain/loss of 3 lbs overnight or 5 lbs in one week.
-REPORT any clicking noise or uneven appearance of your sternum to your surgeon immediately.
-If you smoke, you are instructed to quit. The [facility] smoking hotline phone number is [phone]
Referrals:
CT Transitional Care Nurse [Outside] (The Cardiothoracic Transitional Care Nurse will call you to set up a visit in 1-2 days.)
[facility] [Outside] - 06/05/24 11:00 am
(Cardiac Rehab Orientation appointment is on 06/05/2024 at 11 AM
The Cardiac Rehab gym is located on the first floor of the [facility].)
Melisa Wiggins PA-C [Specified Professional Personl] - 06/16/24 10:40 am
Darwin Ruiz MD [Active] - (IF UROLOGIC CONCERNS CALL dR Ruiz [phone] FOR FOLLOW UP please cooper ruiz from rehabfor insructions o voidng trial)
Dena Guy MD [Family Provider] -
Kenney Martinez MD [Active] - 06/02/24 2:30 pm
Additional Discharge Medication Instructions: ASpirin 325mg decreased to 81mg
Prescriptions:
New
acetaminophen 325 mg Tablet
650 mg PO Q4HPRN PRN (Reason: mild pain,headache,temp >101F ) Qty: 0 0RF
aspirin 81 mg Tablet,Chewable
81 mg PO DAILY Qty: 0 0RF
amiodarone 200 mg Tablet
200 mg PO BID Qty: 60 1RF
metoprolol succinate 25 mg Tablet Extended Release 24 Hr
25 mg PO BID Qty: 60 1RF
guaifenesin 600 mg Tablet Extended Release 12hr
600 mg PO Q12 PRN (Reason: Congestion) Qty: 0 0RF
pantoprazole 40 mg Tablet,Delayed Release (Dr/Ec)
40 mg PO DAILY Qty: 0 0RF
furosemide [Lasix] 20 mg tablet
20 mg PO DAILY Qty: 5 0RF
Eliquis 5 mg Tablet
5 mg PO BID Qty: 60 1RF
Continued
zinc sulfate 50 mg zinc (220 mg) Tablet
50 mg PO DAILY
cyanocobalamin (vitamin B-12) 500 mcg Tablet
500 mcg PO DAILY
ascorbic acid (vitamin C) [Vitamin C] 500 mg Tablet
500 mg PO DAILY
losartan 25 mg Tablet
25 mg PO HS
doxazosin 4 mg Tablet
4 mg PO HS
vitamin B complex Tablet
1 tab PO DAILY
montelukast 10 mg Tablet
10 mg PO HS
loratadine [Claritin] 10 mg Tablet
10 mg PO HS
eplerenone 25 mg Tablet
75 mg PO HS
ezetimibe 10 mg Tablet
10 mg PO DAILY
Centrum Silver 0.4 mg-300 mcg- 250 mcg Tablet
1 tab PO DAILY
saw palmetto 450 mg Capsule
900 mg PO DAILY
cholecalciferol (vitamin D3) [Vitamin D3] 50 mcg (2,000 unit) Tablet
100 mcg PO DAILY
Lumigan 0.01 % Drops
1 drp BOTH EYES HS
fluticasone furoate-vilanterol [Breo Ellipta] 200-25 mcg/dose Blister With Device
1 inh INHALATION R DAILY
Discontinued
aspirin 325 mg Tablet
325 mg PO DAILY
Discharge Orders:
Discharge Patient (As Directed); Ordered 05/08/24
Ordered By: Grecia Mcdonnell
Care Plan Goals
Care Plan Goals:
Problem: Readiness for enhanced knowledge related to diagnosis and treatment plan
Goal: Understand your diagnosis and treatment plan needs, including medications if applicable.
Instructions: Know your diagnosis, underlying causes and treatment plan options, including medications if applicable. Consult with your health care team to learn about your diagnosis and treatment plan, including medications if applicable.
Discharge Date and Time
Print Language: URDU

Documented by User: DIPIKA Ann 05/08/24 09:07
Discharge Summary
Discharge Data
Date of Admission: 04/28/24
Date of Discharge: 05/08/24
Hospital Course
Primary care physician: Dena Guy
Outpatient clin asst: Naveen Lomax
Inpatient consultants: [facility]
Procedures:
1. Coronary artery bypass grafting
Primary Diagnosis:
1. Coronary artery disease
Secondary Diagnoses:
1. Hypertension
2. Hyperlipidemia
3. Obesity (BMI 38.3)
4. BPH
5. Asthma
6. Prediabetes (A1c 5.9)
7. Obstructive sleep apnea�no CPAP use
8. Incidental CT T findin.9 right adrenal nodule and scattered right pulmonary nodules
9. Acute postoperative traumatic hematuria
10. Acute postoperative urinary retention with Calzada reinsertion
11. Acute postop bifascicular block (new RBBB and LAFB) with bradycardia
12. Acute postop blood loss anemia
13. Acute postoperative atrial fibrillation
HPI: 73-year-old male admitted to the emergency room on 04/28 with complaint of progressively worsening weight gain and shortness of breath (since summer) ability to walk more than 30 yards. Echocardiogram reported left ventricular ejection fraction
of 65-70%. There was mild aortic stenosis with peak and mean gradients of 16 and 10. Trace mitral regurgitation. Cardiac catheterization on 04/28 reported critical coronary artery disease.
Hospital course: On 04/29/2024, patient underwent CABG x 3 with ENRIQUEZ to LAD, SVG to OM, and SVG to RPDA by Dr. Kenney Martinez. Patient received no intraoperative blood return to CVICU with intermittent pacing deemed to have a 31 bradycardia coming
off pump. Patient did have hematuria on arrival to CVICU. Patient did have a bifascicular block and had labile blood pressure requiring 750 mL of lactated Ringer's. Patient was extubated to BiPAP.
Postoperative day 1: Patient maintained sinus rhythm beta-akil was initiated. Patient received Zofran and Reglan for nausea. Plavix was held due to hematuria. Urology was consulted and felt that hematuria was related to trauma from Calazda
insertion.
Postoperative day #2: Calzada was discontinued. Chest were tubes removed. Patient did have urinary retention (more than 1000 cc) requiring straight cath and Calzada reinsertion per urology.
Postoperative day #3: Urology recommendation was to keep Calzada for 1 week and follow-up as an outpatient. Patient developed rapid A-fib requiring beta-akil, amiodarone bolus and drip. Patient had A-fib burden of 14 hours.
Postoperative day #4: Patient self cardioverted to sinus rhythm rate 50.
Postoperative day #5: Patient again developed hematuria following PT OT. Plavix continued to be held. Toprol increased to 25 mg twice daily. Lasix was given for weight gain and fluid overload.
Postoperative day #6: Urine output had cleared. Temporary pacing wires were clipped to skin level. Urology recommended holding Plavix for another 24 hours.
Postoperative day #7: Urine remained clear and urology agreeable to resume Plavix. Calzada will be maintained on transfer to rehab. Physiatry saw patient and recommended acute rehab; however, they are available today. Voiding trials may be
attempted when patient more ambulatory.
Home medication changes:
see below
Discharge Plan
-
Patient Disposition: Home (Routine Discharge)
Discharge Diagnosis/Procedures: CABG
Condition: Fair
Diet: Low Cholesterol and Low Sodium
Activity: No strenuous activity
Driving Restrictions: Not until seen by your Dr
Bathing Restrictions: OK to Shower
Other Services: Cardiac Rehab
Specialty Instructions: Weigh Daily- Call MD for wt gain/loss 3 lbs overnight/5 lbs in 1 week
Activity Restrictions/Additional Instructions:
ACTIVITY:
-No strenuous activity: no heavy lifting, pushing, pulling anything over 15 pounds for one month
-continue to use stairs as tolerated
DRIVING RESTRICTIONS:
-No driving for one month or until approved by your surgeon
WOUND CARE:
-Shower daily. Use soap & water.
-No lotions, creams or powders on incision area.
DIET:
-continue a low fat/low cholesterol diet.
-IF you are diabetic, continue carb controlled diet.
CARDIAC REHAB:
-Please make appointment to start in 5-6 weeks with your local hospital program. (See Cardiac Rehabilitation Discharge Booklet).
SPECIALTY INSTRUCTIONS:
-Weigh yourself daily. Call your physician for any weight gain/loss of 3 lbs overnight or 5 lbs in one week.
-REPORT any clicking noise or uneven appearance of your sternum to your surgeon immediately.
-If you smoke, you are instructed to quit. The [facility] smoking hotline phone number is [phone]
Referrals:
CT Transitional Care Nurse [Outside] (The Cardiothoracic Transitional Care Nurse will call you to set up a visit in 1-2 days.)
[facility] [Outside] - 06/05/24 11:00 am
(Cardiac Rehab Orientation appointment is on 06/05/2024 at 11 AM
The Cardiac Rehab gym is located on the first floor of the [facility].)
Melisa Wiggins PA-C [Specified Professional Personl] - 06/16/24 10:40 am
Darwin Ruiz MD [Active] - (IF UROLOGIC CONCERNS CALL dR Ruiz [phone] FOR FOLLOW UP please caklll dr ruiz from rehabfor insructions o voidng trial)
Dena Guy MD [Family Provider] -
Kenney Martinez MD [Active] - 06/02/24 2:30 pm
Additional Discharge Medication Instructions: ASpirin 325mg decreased to 81mg
Prescriptions:
New
acetaminophen 325 mg Tablet
650 mg PO Q4HPRN PRN (Reason: mild pain,headache,temp >101F ) Qty: 0 0RF
aspirin 81 mg Tablet,Chewable
81 mg PO DAILY Qty: 0 0RF
amiodarone 200 mg Tablet
200 mg PO BID Qty: 60 1RF
metoprolol succinate 25 mg Tablet Extended Release 24 Hr
25 mg PO BID Qty: 60 1RF
guaifenesin 600 mg Tablet Extended Release 12hr
600 mg PO Q12 PRN (Reason: Congestion) Qty: 0 0RF
pantoprazole 40 mg Tablet,Delayed Release (Dr/Ec)
40 mg PO DAILY Qty: 0 0RF
furosemide [Lasix] 20 mg tablet
20 mg PO DAILY Qty: 5 0RF
Eliquis 5 mg Tablet
5 mg PO BID Qty: 60 1RF
Continued
zinc sulfate 50 mg zinc (220 mg) Tablet
50 mg PO DAILY
cyanocobalamin (vitamin B-12) 500 mcg Tablet
500 mcg PO DAILY
ascorbic acid (vitamin C) [Vitamin C] 500 mg Tablet
500 mg PO DAILY
losartan 25 mg Tablet
25 mg PO HS
doxazosin 4 mg Tablet
4 mg PO HS
vitamin B complex Tablet
1 tab PO DAILY
montelukast 10 mg Tablet
10 mg PO HS
loratadine [Claritin] 10 mg Tablet
10 mg PO HS
eplerenone 25 mg Tablet
75 mg PO HS
ezetimibe 10 mg Tablet
10 mg PO DAILY
Centrum Silver 0.4 mg-300 mcg- 250 mcg Tablet
1 tab PO DAILY
saw palmetto 450 mg Capsule
900 mg PO DAILY
cholecalciferol (vitamin D3) [Vitamin D3] 50 mcg (2,000 unit) Tablet
100 mcg PO DAILY
Lumigan 0.01 % Drops
1 drp BOTH EYES HS
fluticasone furoate-vilanterol [Breo Ellipta] 200-25 mcg/dose Blister With Device
1 inh INHALATION R DAILY
Discontinued
aspirin 325 mg Tablet
325 mg PO DAILY
Discharge Orders:
Discharge Patient (As Directed); Ordered 05/08/24
Ordered By: Grecia Mcdonnell
Care Plan Goals
Care Plan Goals:
Problem: Readiness for enhanced knowledge related to diagnosis and treatment plan
Goal: Understand your diagnosis and treatment plan needs, including medications if applicable.
Instructions: Know your diagnosis, underlying causes and treatment plan options, including medications if applicable. Consult with your health care team to learn about your diagnosis and treatment plan, including medications if applicable.
Discharge Date and Time
Print Language: URDU
--- NOTE | 2024-05-06 13:00 | PTCARENOTE ---
Pt reassessed. VSS. Sternal aquacel removed. incision approximated and TAL. PIV and esqueda remain intact. No other acute changes from previous assessment.
--- NOTE | 2024-05-06 14:27 | CM ---
Reviewed chart. Telephone call to [facility] to start pre-cert for acute rehab. at [place] [facility]. Pending reference number is [id number]. Sent clinical information. Awaiting decision. Spoke with [facility] who states
they will have a bed today for Mr. Villeda if approved by insurance. Medical work-up in progress. The discharge plan is to go to [facility]. at [place] if approved by insurance and bed available.
--- NOTE | 2024-05-06 14:42 | W.PN.URO.CBU ---
Today's Communication / Plan
-
restart plavix transfer to rehab with esqueda voiding trial as gains strength
Assessment / Plan
-
Recurrent post-op urinary retention - large volume (>1000 cc)
H/o BPH on doxazosin
Hematuria - mild, secondary to decompression after catheter re-insertion, BPH, anti-platelet therapy
Given progressively improving hematuria, no indication for 3-way catheter exchange or CBI at this time.
Hgb 10.2 => 10.2
Diagnosis
-
Date of Service: May 06, 2024
-
Patient Diagnosis:
Post Op Day:
Patient Diagnosis:
Post Op Day:
Patient Diagnosis:
Hematuria
Acute urinary retention - large volume (>1000 cc)
H/o BPH on doxazosin
Subjective
-
hematuria resolkved
Objective
-
Vital Signs
Temp Pulse Resp BP Pulse Ox
99.3 F 76 16 95/80 99
05/06/24 13:32 05/06/24 13:32 05/06/24 13:32 05/06/24 13:32 05/06/24 13:32
Intake and Output
05/05/24 05/06/24 05/07/24
06:59 06:59 06:59
Intake Total 930 / 930 870 / 870 240 / 240
Output Total 2200 / 2200 1805 / 1805 600 / 600
Balance -1270 / -1270 -935 / -935 -360 / -360
Intake:
Oral fluids 700 / 700 840 / 840 240 / 240
IV fluids (Total) 230 / 230 30 / 30
CORDIS 230 / 230 30 / 30
Output:
Urine, Esqueda 2200 / 2200 1805 / 1805 600 / 600
Laboratory Results
05/06/24 03:16
05/06/24 03:16
Review of Systems
-
: Difficulty Voiding
Physical Exam
-
General - well developed, well nourished, no acute distress
Chest - clear bilaterally
Abdomen - soft, non-tender, positive bowel sounds, no CVAT, no incisional pain or distention
Genitalia - normal
Rectal - normal
Skin - warm & dry with no rash
Neuro - AOx3, no motor deficits
Extremities - no clubbing, no cyanosis, no edema
Incision - clean, dry
Dressing - clean, dry, intact
Counseling
-
leave esqueda but hve rehab call and schedule voiding trial once stablized on rehab
Care Review
Data Reviewed
Discussed with: Nursing
[2024-05-06] MEDS: LIDOCAINE URO-JET 2% 1 SYRINGE TOPICAL (16:21)
--- NOTE | 2024-05-06 20:00 | PTCARENOTE ---
Received pt from [facility]. pt resting comfortably in chair . pt is AAOx4. NSR on monitor. VSS. heart sounds audible, radial and DP pulses palpable, +2 pitting edema in lower extremities. lungs diminished in bases, spo2 98% on RA. pt voiding dark
yellow urine, some residual blood from hematuria, esqueda catheter remains in place per urology. +BS x4 quadrants, abdomen firm, roud/obese, non tender. surgical sites maintained. PIV maintained. plan is for d/c to [facility]. call lanier within reach.
will continue to monitor.
[2024-05-06] MEDS: CLARITIN 10 MG PO (21:16)
[2024-05-06] MEDS: INSPRA 75 MG PO (21:16)
[2024-05-06] MEDS: CARDURA 4 MG PO (21:17)
[2024-05-06] MEDS: SINGULAIR 10 MG PO (21:17)
[2024-05-07] VITALS (14 sets, daily range): BP systolic 115–142; BP diastolic 69–104; BMI 38.2
--- NOTE | 2024-05-07 | PTCARENOTE ---
Pt assessment unchanged. pt resting comfortably in bed. NSR on monitor. VSS. cll lanier within reach. will continue to monitor.
[2024-05-07] MEDS: SENOKOT-S PO (00:09)
--- NOTE | 2024-05-07 04:00 | PTCARENOTE ---
Pt assessment unchanged. NSR on monitor. VSS. call lanier within reach. will continue to monitor.
[2024-05-07] MEDS: TYLENOL 1000 MG PO ×3 (05:57→22:29)
--- NOTE | 2024-05-07 06:09 | W.PN.CT ---
Today's Communication / Plan
-
-pod #8
-no issues overnight, remains in nsr
-urine is clear (has Calzada). Plavix is to restart today. On ASA daily
-maintain Calzada per Urology
-awaiting bed at [facility] and insurance approval
-encourage IS, OOB
-appreciate everyone's input
Assessment / Plan
-
Assessment:
-Mv-CAD - s/p CABG x 3 (GONZALEZ to LAD, GSV to OM, GSV to RPDA) by Dr. Martinez on 04/29/24, pod #8
- Intraop ARIS: normal biventricular function, unchanged from prior
- Pt. w/ bradycardia sinus rhythm in the 40s under GA. Required V-pacing initially, regained NSR w/ BBB in 70s
- HTN/HLD
- Preop bradycardia in 40's
- Pre-existing RBBB
- ASUNCION, not on CPAP
- Class 2 obesity (BMI 38.7)
- Prediabetes (A1C 5.9)
- Asthma
- COPD
- Former smoker
- EtOH daily (beer or wine)
- Scattered R sided pulmonary nodules upto 1.3cm on chest CT 04/28/24
- R adrenal adenoma 1.9 cm
- Acute postop bifascicular block (new RBBB and LAFB) with bradycardia, requiring pacing briefly postop - will hold BB and Amio
- Acute postop blood loss anemia
- Acute postop hypovolemia with subsequent hypervolemia
- Acute postop atelectasis
- Acute postop hematuria- resolved
- Acute postop urinary retention
- Brief SVT 160s on 04/30, followed by V-pacing @60 bpm
- Acute postop a-fib with RVR (150's)
- Acute postop hyponatremia, 134
Discussed patient care with: Nursing and Care Team
Subjective
Procedure
- s/p CABG x 3 (GONZALEZ to LAD, GSV to OM, GSV to RPDA) by Dr. Martinez on 04/29/24
-
Date of Service: May 07, 2024
Objective Data
-
Lab Results
05/06/24 03:16
05/06/24 03:16
PT 16.3 Sec (11.4-14.6) H 04/29/24 14:39
INR 1.30 04/29/24 14:39
APTT 38.5 Sec (23.4-35.0) H 04/29/24 14:39
Vital Signs
Vital Signs
Temp Pulse Resp BP Pulse Ox
99.6 F 73 20 123/75 95
05/07/24 04:00 05/07/24 04:00 05/07/24 04:00 05/07/24 04:00 05/07/24 04:00
CT Intake/Output/Weight
05/06/24 05/06/24 05/07/24
06:59 18:59 06:59
Intake Total 240 / 240
Output Total 905 / 1805 1400 / 3000 1600 / 3000
Balance -905 / -935 -1160 / -2760 -1600 / -2760
SaO2: 95
Physical Exam
-
General: Awake, Oriented and AOx3
Cardiovascular: Regular rate & rhythm, No Murmurs, No Rub and No Gallop
Respiratory: Decreased Breath Sounds (at bases, otherwise clear)
Sternum: Stable
Incision: Clean, Dry, Intact and Dressing Intact
Extremities: 1+ Edema, 2+DPs b/l
Data Reviewed
-
Lab Results: Results Reviewed
Medications: Active Meds Reviewed
Chest X-Ray: Report Reviewed and Image Reviewed
ECG: Report Reviewed and Image Reviewed
[2024-05-07] MEDS: NSS IV (07:23)
[2024-05-07] MEDS: REGLAN PO (07:23)
[2024-05-07] MEDS: NEURONTIN PO (07:23)
[2024-05-07] MEDS: NON-FORMULARY ITEM 1 INH INH (07:37)
[2024-05-07] MEDS: TOPROL XL 25 MG PO ×2 (07:57→19:55)
[2024-05-07] MEDS: LIDOCAINE URO-JET 2% 1 SYRINGE TOPICAL (07:57)
[2024-05-07] MEDS: MAGNESIUM OXIDE 500 MG PO ×2 (07:57→19:55)
[2024-05-07] MEDS: LIDOCAINE 4% PATCH 1 PATCH TOPICAL (07:57)
[2024-05-07] MEDS: ZINC SULFATE 220 MG PO (07:58)
[2024-05-07] MEDS: VITAMIN B-12 500 MCG PO (07:58)
[2024-05-07] MEDS: MUCINEX 600 MG PO ×2 (07:58→19:55)
[2024-05-07] MEDS: PLAVIX 75 MG PO (07:58)
[2024-05-07] MEDS: PACERONE 200 MG PO ×2 (07:58→19:54)
[2024-05-07] MEDS: VITAMIN C 500 MG PO (07:58)
[2024-05-07] MEDS: LOW STRENGTH ASPIRIN 81 MG PO (07:58)
[2024-05-07] MEDS: SENOKOT-S 1 TABLET PO ×3 (07:58→22:30)
[2024-05-07] MEDS: VITAMIN D3 (cholecalciferol) 100 MCG PO (07:58)
[2024-05-07] MEDS: ZETIA 10 MG PO (07:58)
[2024-05-07] MEDS: PROTONIX 40 MG PO (07:58)
--- NOTE | 2024-05-07 08:00 | PTCARENOTE ---
Pt reassessed. Pt alert and oriented x4. Denies pain, shortness of breath, and nausea. LIM with equal strength throughout. NSR on tele with rates in the 70s. BP stable 115/69. Bilateral radial and DP pulses palpable. +2 edema to bilateral lower
extremities. POX 96% on RA. Lungs diminished in the bases. IS encouraged-1250mL achieved. Occasional dry nonproductive cough. Abdomen round, obese, nontender. +BS. Calzada catheter in place draining adequate amounts of clear yellow urine. Sternal
incision approximated TAL. Old chest tube sites with sutures and SOCIAL MEDIA ASSISTANT. Right groin puncture site approximated, SOCIAL MEDIA ASSISTANT. Right SVG harvest site approximated and TAL. Right wrist 22g PIV intact. See MAR for medication administration. See worklist for
complete nursing assessment. Plan of care reviewed and patient in agreement.
--- NOTE | 2024-05-07 10:03 | W.PN.URO.CBU ---
Today's Communication / Plan
-
transfer when ready with esqueda and voiding trial at rehab
Assessment / Plan
-
Recurrent post-op urinary retention - large volume (>1000 cc)
H/o BPH on doxazosin
Hematuria - mild, secondary to decompression after catheter re-insertion, BPH, anti-platelet therapy
Given progressively improving hematuria, no indication for 3-way catheter exchange or CBI at this time.
Hgb 10.2 => 10.2
Diagnosis
-
Date of Service: May 07, 2024
-
Patient Diagnosis:
Post Op Day:
Patient Diagnosis:
Post Op Day:
Patient Diagnosis:
Post Op Day:
Patient Diagnosis:
Hematuria
Acute urinary retention - large volume (>1000 cc)
H/o BPH on doxazosin
Subjective
-
no hematuria
Objective
-
Vital Signs
Temp Pulse Resp BP Pulse Ox
98.1 F 70 18 115/69 96
05/07/24 08:00 05/07/24 08:00 05/07/24 08:00 05/07/24 08:00 05/07/24 08:00
Intake and Output
05/06/24 05/07/24 05/08/24
06:59 06:59 06:59
Intake Total 870 / 870 240 / 240 240 / 240
Output Total 1805 / 1805 3000 / 3000
Balance -935 / -935 -2760 / -2760 240 / 240
Intake:
Oral fluids 840 / 840 240 / 240 240 / 240
IV fluids (Total) 30 / 30
CORDIS 30 / 30
Output:
Urine, Esqueda 1805 / 1805 3000 / 3000
Laboratory Results
05/06/24 03:16
05/06/24 03:16
Review of Systems
-
: Difficulty Voiding
Physical Exam
-
General - well developed, well nourished, no acute distress
Chest - clear bilaterally
Abdomen - soft, non-tender, positive bowel sounds, no CVAT, no incisional pain or distention
Genitalia - normal
Rectal - normal
Skin - warm & dry with no rash
Neuro - AOx3, no motor deficits
Extremities - no clubbing, no cyanosis, no edema
Incision - clean, dry
Dressing - clean, dry, intact
Care Review
Data Reviewed
Discussed with: Nursing
--- NOTE | 2024-05-07 11:18 | CM ---
Reviewed chart. Telephone call to Insurance to check on status of auth. Auth. is still pendin and is with the [employer]. Awaiting decision from insurance regarding [facility] at [place].
--- NOTE | 2024-05-07 11:40 | PTCARENOTE ---
Assumed care of the patient. Assessment unchanged from previously. Patient up in the chair. Neuro intact, AOx4. No current complaints of pain. NSR on the monitor rate of 70's. Trace to +1 generalized edema, +2 non pitting edema of the lower
extremities. Patient c/o of GROSS, has an occasional productive cough, lungs dim at the bases, currently satting 97% on RA. Abdomen round/obese, firm, nontender. LBM reported by patient as this morning, good appetite. Calzada in place, urine clear and
yellow, some discomfort/pain at the urethral meatus, lidocaine provided PRN for comfort. Sternal incision well approximated CDI, CT sites dry and intact with sutures in place, R groin TAL intact, R LE graft site TAL dry and intact, hematoma
resolved. Reiterated to the patient the POC, awaiting [facility] insurance approval. VSS, the patient in agreement, no questions indicated. Assessment of needs ongoing.
--- NOTE | 2024-05-07 11:55 | W.PN.UPDATE ---
Update Note
Progress Note Update
awaiting insurance approval from [place]. stable cardiac status. OP cardiac follow up arranged. will plan to sign off. d/w CT surgery
--- NOTE | 2024-05-07 12:17 | CM ---
Addendum entered by Shilpi Gusman 05/07/24 15:01:
Denied inpatient admission by his insurance. Mr. Villeda is agreeable to going to SNF at [facility] i bed available. Telephone call to [facility] Admissions to make the referral. Sent the referral. Telephone call to insurance to
start SNF/Rehab. auth. Approved SNF from 05/07/24 to 05/10/24. The auth. number is [id number]. Awaiting decision from [facility] regarding ability to accept.
Original Note:
Reviewed chart. Telephone call to Insurance to check on staus of auth. Still awaiting manager medical affairs review and decision.
[2024-05-07] MEDS: LASIX 40 MG IV (16:38)
--- NOTE | 2024-05-07 18:38 | PTCARENOTE ---
Patient had a shower, tolerated activity well, minimal assistance. New telemetry leads applied, esqueda care given PRN, placed back in chair for dinner. The patient was subsequently transferred to IVU. Report given to receiving day shift RN, no
questions indicated. Patient updated about plan for transfer, in agreement. No further needs assessed at this time.
--- NOTE | 2024-05-07 18:50 | PTCARENOTE ---
Pt received from CVICU, no change from reported assessment of HOUSECLEANER. Pt with noticeable GROSS and at rest, 97% on room air with resp rate of 24. IS to 1250mls. Telemetry shows sinus rhythm. Plan to remove esqueda as ordered for voiding trial.
--- NOTE | 2024-05-07 20:40 | PTCARENOTE ---
Pt. received at change of shift. Pt. seen and assessed in room. RN attempted to flush LFA IV, pt. refused, saying it 'hurts too much'. Pt. AOx3 with no complaints of pain. Esqueda care done, pt. verbalizes understanding of esqueda to be removed 05/08 at
0600 and needs to urinate after. VS WNL. Tele reading NSR in the 70s-80s. Continuing to monitor pt at this time.
[2024-05-07] MEDS: CARDURA 4 MG PO (22:29)
[2024-05-07] MEDS: CLARITIN 10 MG PO (22:29)
[2024-05-07] MEDS: SINGULAIR 10 MG PO (22:30)
[2024-05-07] MEDS: INSPRA 75 MG PO (22:33)
[2024-05-08] VITALS (7 sets, daily range): BP systolic 119–133; BP diastolic 72–93; BMI 38.4
--- NOTE | 2024-05-08 00:07 | PTCARENOTE ---
indwelling esqueda removed at 1207, pt. due to void at 0607. pt. verbalizes understanding. continuing to monitor at this time.
[2024-05-08 04:57] LABS: Blood Urea Nitrogen 17 mg/dl (9-20); Carbon Dioxide 24 mmol/L (22-30); Chloride 100 mmol/L (98-107); Estimated Creatinine Clearance 97 ml/min; Glucose 113 mg/dl (70-99); Magnesium 2.2 mg/dl (1.6-2.3); Potassium 4.6 mmol/L (3.5-5.1); Sodium 135 mmol/L (135-145); eGFR > 60.00
[2024-05-08] MEDS: TYLENOL 1000 MG PO ×2 (05:05→14:14)
--- NOTE | 2024-05-08 05:47 | W.PN.CT ---
Addendum entered and electronically signed by Kenney Martinez MD 05/08/24 14:51:
I saw and examined the patient.
The PA's note was reviewed and I agree with the note.
Comment:
Postop day 9 status post CABG postop course complicated by urinary retention
Greatly appreciate their advice and expertise of my urology colleagues -outpatient follow-up arranged
Continue current medications
Aspirin/Eliquis
Out of bed I-S ambulate
Discharge planning
Original Note:
Today's Communication / Plan
-
-pod #9
-no issues overnight
-Calzada removed at midnight. Urine was clear yellow, no blood. Voided 250cc after Calzada removal
-diuresed with 40 iv Lasix on 05/07 - UO 1600/3400 in 12/24 hrs
-Plavix restarted 05/08
-current meds (ASA, Plavix, Cardura, Toprol 25 bid, Amio 200 bid, Zetia, Inspra, Mucinex, Protonix)
-appreciate everyone's input)
-likely d/c soon
Assessment / Plan
-
Assessment:
-Mv-CAD - s/p CABG x 3 (GONZALEZ to LAD, GSV to OM, GSV to RPDA) by Dr. Martinez on 04/29/24, pod #9
- Intraop ARIS: normal biventricular function, unchanged from prior
- Pt. w/ bradycardia sinus rhythm in the 40s under GA. Required V-pacing initially, regained NSR w/ BBB in 70s
- HTN/HLD
- Preop bradycardia in 40's
- Pre-existing RBBB
- ASUNCION, not on CPAP
- Class 2 obesity (BMI 38.7)
- Prediabetes (A1C 5.9)
- Asthma
- COPD
- Former smoker
- EtOH daily (beer or wine)
- Scattered R sided pulmonary nodules upto 1.3cm on chest CT 8/27/24
- R adrenal adenoma 1.9 cm
- Acute postop bifascicular block (new RBBB and LAFB) with bradycardia, requiring pacing briefly postop - will hold BB and Amio
- Acute postop blood loss anemia
- Acute postop hypovolemia with subsequent hypervolemia
- Acute postop atelectasis
- Acute postop hematuria- resolved
- Acute postop urinary retention
- Brief SVT 160s on 04/30, followed by V-pacing @60 bpm
- Acute postop a-fib with RVR (150's)
- Acute postop hyponatremia, 134
Discussed patient care with: Nursing and Care Team
Subjective
Procedure
- s/p CABG x 3 (GONZALEZ to LAD, GSV to OM, GSV to RPDA) by Dr. Martinez on 04/29/24
-
Date of Service: May 08, 2024
Objective Data
-
Lab Results
05/06/24 03:16
PT 16.3 Sec (11.4-14.6) H 04/29/24 14:39
INR 1.30 04/29/24 14:39
APTT 38.5 Sec (23.4-35.0) H 04/29/24 14:39
Vital Signs
Vital Signs
Temp Pulse Resp BP Pulse Ox
98.1 F 78 24 130/78 97
05/07/24 22:28 05/07/24 22:29 05/07/24 18:49 05/07/24 22:29 05/07/24 19:52
CT Intake/Output/Weight
05/07/24 05/07/24 05/08/24
06:59 18:59 06:59
Intake Total 720 / 720
Output Total 1600 / 3000 1800 / 2900 1100 / 2900
Balance -1600 / -2760 -1080 / -2180 -1100 / -2180
SaO2: 97
Physical Exam
-
General: Awake, Oriented and AOx3
Cardiovascular: Regular rate & rhythm, No Murmurs, No Rub and No Gallop
Respiratory: Decreased Breath Sounds (at bases, otherwise clear)
Sternum: Stable
Incision: Clean, Dry, Intact and Dressing Intact
Extremities: 1+ Edema, 2+DPs b/l
Data Reviewed
-
Lab Results: Results Reviewed
Medications: Active Meds Reviewed
Chest X-Ray: Report Reviewed and Image Reviewed
ECG: Report Reviewed and Image Reviewed
[2024-05-08] MEDS: NON-FORMULARY ITEM 1 INH INH (07:17)
[2024-05-08] MEDS: LOW STRENGTH ASPIRIN 81 MG PO (08:03)
[2024-05-08] MEDS: ZETIA 10 MG PO (08:03)
[2024-05-08] MEDS: MUCINEX 600 MG PO (08:03)
[2024-05-08] MEDS: PROTONIX 40 MG PO (08:04)
[2024-05-08] MEDS: VITAMIN D3 (cholecalciferol) 100 MCG PO (08:04)
[2024-05-08] MEDS: ZINC SULFATE 220 MG PO (08:04)
[2024-05-08] MEDS: SENOKOT-S 1 TABLET PO (08:05)
[2024-05-08] MEDS: MAGNESIUM OXIDE 500 MG PO (08:05)
[2024-05-08] MEDS: VITAMIN B-12 500 MCG PO (08:06)
[2024-05-08] MEDS: PLAVIX 75 MG PO (08:06)
[2024-05-08] MEDS: VITAMIN C 500 MG PO (08:06)
[2024-05-08] MEDS: PACERONE 200 MG PO (08:07)
[2024-05-08] MEDS: TOPROL XL 25 MG PO (08:07)
[2024-05-08] MEDS: LIDOCAINE 4% PATCH 1 PATCH TOPICAL (08:13)
[2024-05-08] MEDS: LASIX 20 MG PO (09:13)
--- NOTE | 2024-05-08 09:58 | W.PN.CARDCBS ---
Addendum entered and electronically signed by Brennen Mccoy MD 05/08/24 16:02:
I saw and examined the patient.
The CHIEF ORTHOPTIST or PA's note was reviewed and I agree with the note.
Comment: General: Well developed, well nourished in NAD.
Neck: Supple, no JVD, HJR, carotids +2 B/L, no bruits bilaterally.
Heart: Non displaced PMI, RRR, no murmurs, No S3, S4, no rubs.
Lungs: Scattered rhonchi
Sternal dressings noted
Extremities: No clubbing, cyanosis or edema bilaterally.
Neuro: Grossly nonfocal, awake, alert and oriented x3.
Stable cardiology status for discharge. Will start Eliquis given A-fib. Outpatient follow-up arranged
Original Note:
Today's Communication / Plan
-
would plan for eliquis and asa when ok per urology/CT surgery
follow urinary issues
continue post op mgmt
OP cardiac follow up arranged
Impression / Plan
-
PCP: Dr. Guy
Cardiology: Dr. CARLITO Lomax, last seen 12/2022
Nephrology: Dr. Lees
Impression:
Chest pain and GROSS on admission with serially undetectable Troponin 04/27/24
CAD
multivessel CAD by cath 04/28/24
s/p CABG with ENRIQUEZ to LAD, SVG to OM and SVG to RPDA 04/29/24
Paroxysmal atrial tachycardia/atrial fibrillation
HTN
Untreated hyperlipidemia due to statin intolerance and patient refusal of PCSK9 inhibitor meds
Mild by echo 06/2022
Morbid obese
cRBBB
LAFB
Sleep apnea
Echo 06/22/22: EF 70-75%, mild conc LVH, mild peak/mean 20/10 mmHg and NICKY 2.0 cm sq
Echo 04/27/24: EF 65 to 70%, moderate concentric LVH, mild with peak/mean 16/10 mmHg and NICKY 1.7 cm sq, no aortic insufficiency
Plan:
-Patient is s/p ENRIQUEZ to LAD, SVG to OM and SVG to RPDA 04/29/24
-asked to see patient back to comment on OAC.
-had 14 hours of afib 05/02-05/03. has remained in SR without recurrence
-had hematuria earlier in stay which has subsequently cleared. of note, he is currently having urinary retention s/p esqueda catheter removal.
-would plan to initiate eliquis 5mg BID when ok from urology/CT surgery standpoint. would continue asa and stop plavix.
-LDL 159 on admission. Patient was not taking a statin prior to admission and says he is intolerant to Fenofibrate due to joint pain, atorvastatin caused him to have joint pain and feel sluggish, simvastatin caused joint pain and fatigue. Patient
refused to consider PCSK9 inhibitors before. Will need to have ongoing discussions about the repercussions of an untreated LDL of 159 and known CAD.
-remains with LE edema on exam. diuresis per surgical team. back on OP eplerenone
-OP cardiac follow up arranged. now planned for home upon DC
-CT surgery CHIEF ORTHOPTIST
HPI: [facility] today with chest pain and GROSS and cardiology has been consulted. Patient last saw Dr. Lomax in the office 12/07/22 and complained of chest pain and GROSS, but had previously completed a Lexiscan mibi 09/17/22 that showed a small
area of mildly decreased perfusion that was fixed in the mid inferior and apical inferior and partially improved with prone imaging. When patient complained of recurrent symptoms at the 12/07/22 office visit he was recommended PCSK9 inhibitor for
untreated hyperlipidemia and a coronary calcium score, but he declined and did not come back to the office. Patient says that since the beginning of the summer he has had a rapid deterioration in his activity levels due to exertional intolerance. He
describes chest pain from shoulder to shoulder and GROSS when he walks more than 10 yards. He says that if he tries to complete too much activity that he vomits. No resting chest pain or GROSS. No substernal pain and no radiation to his neck or jaw. He
has experience similar symptoms for more than 1 year, but happening at lower levels of activity now. Patient with chronic LE edema that has been present for months. He says edema is there even in the morning when he wakes up. He also complains of
bloating and at one point had lost 10 lbs, but then gained the weight back quickly and has not gained any additional weight. He says that despite this he thinks his pants are looser at the waist than before. He has HTN that is managed by Nephrology
using Cardura, eplerenone and losartan. His resting BP is 150/88 in the ER and he has similar readings at home. He also has a h/o mild by last echo almost 2 years ago. Patient says that he has described his symptoms to family members who are
physicians and also to friends and they all feel that he has CAD and that he needs a stent so this is the reason he came to [facility] today and not months ago.
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
Subjective
Date of Service: May 08, 2024
No hematuria. Reports urinary retention
Objective
Labs:
05/06/24 03:16
05/08/24 04:00
Labs
Hgb 10.4 g/dL (13.0-18.0) L 05/06/24 03:16
Hct 30.2 % (39.0-52.0) L 05/06/24 03:16
Plt Count 252 10^3/uL (130-400) 05/06/24 03:16
PT 16.3 Sec (11.4-14.6) H 04/29/24 14:39
INR 1.30 04/29/24 14:39
APTT 38.5 Sec (23.4-35.0) H 04/29/24 14:39
Sodium 135 mmol/L (135-145) 05/08/24 04:00
Potassium 4.6 mmol/L (3.5-5.1) 05/08/24 04:00
BUN 17 mg/dl (9-20) 05/08/24 04:00
Creatinine 0.9 mg/dL (0.7-1.3) 05/08/24 04:00
Glucose 113 mg/dl (70-99) H 05/08/24 04:00
Vital Signs and I&O:
Vital Signs
Temp Pulse Resp BP Pulse Ox
98.2 F 102 20 129/89 97
05/08/24 06:54 05/08/24 09:13 05/08/24 06:54 05/08/24 09:13 05/08/24 06:54
Vital Signs
Temp Pulse Resp BP Pulse Ox
98.2 F 102 20 129/89 97
05/08/24 06:54 05/08/24 09:13 05/08/24 06:54 05/08/24 09:13 05/08/24 06:54
Intake & Output
05/06/24 05/07/24 05/08/24 05/09/24
07:59 07:59 07:59 07:59
Intake Total 870 / 1110 240 / 480 720 / 720
Output Total 1805 / 1805 3000 / 3000 3550 / 3550 545 / 545
Balance -935 / -695 -2760 / -2520 -2830 / -2830 -545 / -545
Physical Exam
Physical Exam
GEN: No distress, awake, alert, oriented x3
HEENT: supple, anicteric, mmm, eomi
LUNGS: CTA B/L, no wheezes/rales
CV: Reg, S1/S2, 1/6 syst LSB
ABD: soft, BS+, distended
EXT: No cyanosis, clubbing. 1+ edema of B/L LE
NEURO: Gross non-focal
SKIN: Warm, pink, dry. No rash. Sternotomy incision c/d/i
[2024-05-08] MEDS: COZAAR 25 MG PO (09:59)
--- NOTE | 2024-05-08 11:57 | CM ---
Chart reviewed. Patient is independent of ADLS, lives with his and 2 son in a [address] [facility], [address] [facility], has a SPC at home. Plan is for the patient to return home with CT Transitional RN.
--- NOTE | 2024-05-08 11:59 | CM ---
Pricing on Eliquis 5mg BID through patient's [facility], is $113 for a 30 day retail and $120 for a 90 day mail order. Patient is agreeable to cost. Placed a free 30 day coupon in the patient's red discharge folder.
--- NOTE | 2024-05-08 12:35 | W.PN.URO.CBU ---
Today's Communication / Plan
-
offer esqueda and if refuse please document ty
Assessment / Plan
-
Recurrent post-op urinary retention - large volume (>1000 cc)
H/o BPH on doxazosin pt is voiding and feels he is at baseline but awae of pvr 700 he fees this is whwere he is at home wants to go home no esqueda expalined that this anlead to ut renal injury and pemanent retention pt in presence of nuse
voiced ubderstanding promsed to come dotty to er if sx do occur and und-derstands need for follow rp at office phome numbe m=n ae etc provised to pt.
Hgb 10.2 => 10.2
Diagnosis
-
Date of Service: May 08, 2024
-
Patient Diagnosis:
Post Op Day:
Patient Diagnosis:
Post Op Day:
Patient Diagnosis:
Post Op Day:
Patient Diagnosis:
Post Op Day:
Patient Diagnosis:
Hematuria
Acute urinary retention - large volume (>1000 cc)
H/o BPH on doxazosin
Subjective
-
pt feels he is at baseline as at home and re-using esqueda despite 700cc pvr
Objective
-
Vital Signs
Temp Pulse Resp BP Pulse Ox
97.3 F 78 20 129/89 98
05/08/24 11:18 05/08/24 10:00 05/08/24 11:18 05/08/24 09:59 05/08/24 11:18
Intake and Output
05/07/24 05/08/24 05/09/24
06:59 06:59 06:59
Intake Total 240 / 240 720 / 720
Output Total 3000 / 3000 3400 / 3400 1145 / 1145
Balance -2760 / -2760 -2680 / -2680 -1145 / -1145
Intake:
Oral fluids 240 / 240 720 / 720
Output:
Urine, Esqueda 3000 / 3000 3150 / 3150
Urine, Voided 250 / 250 1145 / 1145
Laboratory Results
05/06/24 03:16
05/08/24 04:00
Review of Systems
-
: Difficulty Voiding
Physical Exam
-
General - well developed, well nourished, no acute distress
Chest - clear bilaterally
Abdomen - soft, non-tender, positive bowel sounds, no CVAT, no incisional pain or distention
Genitalia - normal
Rectal - normal
Skin - warm & dry with no rash
Neuro - AOx3, no motor deficits
Extremities - no clubbing, no cyanosis, no edema
Incision - clean, dry
Dressing - clean, dry, intact
Counseling
-
pt refused esqueda please ask an=gain and document
Care Review
Data Reviewed
Discussed with: Nursing and Other (ct surgery)
Ultrasound: Image Pers Reviewed
--- NOTE | 2024-05-08 13:29 | PTCARENOTE ---
Rec'd pt at change of shift. Pt on TELE monitor in NSR with VSS (see flowchart). Pt verbalized understanding of voiding frequently and monitoring urine output to avoid retention. Pt denies any pain and resting with call lanier in reach.
[2024-05-08] MEDS: NSS IV (14:14)
--- NOTE | 2024-05-08 16:14 | PTCARENOTE ---
Rec'd discharge order. Vitals signs taken prior to d/c. TELE monitor and INT removed from pt. Pt was provided discharge instructions and verbalized understanding of printed material. Pt left room with belongings and discharge instructions. Pt
escorted off unit by staff via wheelchair by and assisted into car with son taking pt home.
== END 2024-05-08 15:43 | disposition home or self-care (01) | DRG 234 ==
LOC: IVU 17:02
PROVIDERS: Anesthesiology; Clinical Nurse Specialist Acute Care; Internal Medicine Interventional Cardiology; Nurse Practitioner; Nurse Practitioner Adult Health; Physician Assistant; Physician Assistant Medical; ADMITTING PHYSICIAN Hospitalist; ATTENDING PHYSICIAN Thoracic Surgery (Cardiothoracic Vascular Surgery); CONSULT PHYSICIAN Internal Medicine Cardiovascular Disease; CONSULT PHYSICIAN Internal Medicine Critical Care Medicine; CONSULT PHYSICIAN Physical Medicine & Rehabilitation; CONSULT PHYSICIAN Specialist; EMERGENCY PHYSICIAN Emergency Medicine; FAMILY PHYSICIAN Internal Medicine
PROC: B2151ZZ Fluoroscopy of Left Heart using Low Osmolar Contrast (ICD-10-PCS; 2024-04-28)
PROC: 4A033BC Measurement of Arterial Pressure, Coronary, Percutaneous Approach (ICD-10-PCS; 2024-04-28)
PROC: B2111ZZ Fluoroscopy of Multiple Coronary Arteries using Low Osmolar Contrast (ICD-10-PCS; 2024-04-28)
PROC: 4A023N7 Measurement of Cardiac Sampling and Pressure, Left Heart, Percutaneous Approach (ICD-10-PCS; 2024-04-28)
PROC: 02100ZC Bypass Coronary Artery, One Artery from Thoracic Artery, Open Approach (ICD-10-PCS; 2024-04-29)
PROC: 06BP4ZZ Excision of Right Saphenous Vein, Percutaneous Endoscopic Approach (ICD-10-PCS; 2024-04-29)
PROC: 5A09357 Assistance with Respiratory Ventilation, Less than 24 Consecutive Hours, Continuous Positive Airway Pressure (ICD-10-PCS; 2024-04-29)
PROC: 5A1221Z Performance of Cardiac Output, Continuous (ICD-10-PCS; 2024-04-29)
PROC: B24BZZ4 Ultrasonography of Heart with Aorta, Transesophageal (ICD-10-PCS; 2024-04-29)
PROC: 021109W Bypass Coronary Artery, Two Arteries from Aorta with Autologous Venous Tissue, Open Approach (ICD-10-PCS; 2024-04-29)
DX: I25.110 Atherosclerotic heart disease of native coronary artery with unstable angina pectoris (principal); D62 Acute posthemorrhagic anemia; E87.1 Hypo-osmolality and hyponatremia; J98.11 Atelectasis; I45.2 Bifascicular block; S37.30XA Unspecified injury of urethra, initial encounter; I47.10 Supraventricular tachycardia, unspecified; E78.2 Mixed hyperlipidemia; I10 Essential (primary) hypertension; G47.33 Obstructive sleep apnea (adult) (pediatric); I25.82 Chronic total occlusion of coronary artery; E66.01 Morbid (severe) obesity due to excess calories; I08.0 Rheumatic disorders of both mitral and aortic valves; I48.91 Unspecified atrial fibrillation; N40.1 Benign prostatic hyperplasia with lower urinary tract symptoms; R33.8 Other retention of urine; J45.991 Cough variant asthma; E87.70 Fluid overload, unspecified; R31.0 Gross hematuria; Y84.6 Urinary catheterization as the cause of abnormal reaction of the patient, or of later complication, without mention of misadventure at the time of the procedure; E86.1 Hypovolemia; R73.03 Prediabetes; D35.01 Benign neoplasm of right adrenal gland; R00.1 Bradycardia, unspecified; Z68.38 Body mass index [BMI] 38.0-38.9, adult; Z79.82 Long term (current) use of aspirin; Z79.899 Other long term (current) drug therapy; Z82.49 Family history of ischemic heart disease and other diseases of the circulatory system; Z87.891 Personal history of nicotine dependence
CPT/HCPCS: 71045; 71046; 71250; 80048; 80053; 80061; 81003; 81015; 82330; 82565; 82805; 82810; 82947; 82962; 83036; 83735; 83880; 84132; 84302; 84443; 84484; 84520; 85014; 85018; 85025; 85027; 85049; 85347; 85379; 85610; 85730; 86850; 86900; 86901; 86920; 93005; 93306; 93312; 93320; 93325; 93458; 93571; 93880; 94002; 94010; 94640; 94660; 97116; 97163; 97167; 97530; 97535; 99285; C1713; C1769; C1894; P9045; Q9967

== ENCOUNTER 2024-07-01 12:08 | Outpatient (RCR) | payer MEDICARE, SELFPAY | END 2024-07-01 23:59 | disposition home or self-care (01) | LOC: CRHB 12:08 | PROVIDERS: ATTENDING PHYSICIAN Internal Medicine Cardiovascular Disease; FAMILY PHYSICIAN Internal Medicine | DX: I50.32 Chronic diastolic (congestive) heart failure (principal); Z95.1 Presence of aortocoronary bypass graft | CPT/HCPCS: G0422; G0423 ==

== ENCOUNTER 2024-07-31 10:59 | Outpatient (RCR) | payer MEDICARE, SELFPAY | END 2024-07-31 23:59 | disposition home or self-care (01) | LOC: CRHB 10:59 | PROVIDERS: ATTENDING PHYSICIAN Internal Medicine Cardiovascular Disease; FAMILY PHYSICIAN Internal Medicine | DX: I25.10 Atherosclerotic heart disease of native coronary artery without angina pectoris (principal); Z95.1 Presence of aortocoronary bypass graft | CPT/HCPCS: G0422; G0423 ==

== ENCOUNTER 2024-08-28 11:29 | Outpatient (RCR) | payer MEDICARE, SELFPAY | END 2024-08-31 14:38 | disposition home or self-care (01) | LOC: CRHB 11:29 | PROVIDERS: ATTENDING PHYSICIAN Internal Medicine Cardiovascular Disease; FAMILY PHYSICIAN Internal Medicine | DX: I25.10 Atherosclerotic heart disease of native coronary artery without angina pectoris (principal); Z95.1 Presence of aortocoronary bypass graft | CPT/HCPCS: G0422; G0423 ==

== ENCOUNTER 2025-01-18 06:21 | Day surgery (SDC) | payer MEDICARE, SELFPAY ==
[2025-01-08 11:16] LABS: Hematocrit 47.1 % (39.0-52.0); Mean Corpuscular Hgb 30.7 pg (27.0-31.0); Mean Corpuscular Volume 90.4 fL (80.0-94.0); Mean Platelet Volume 10.4 fL (7.4-10.4); Platelet Count 192 10^3/uL (130-400); Red Blood Cell Count 5.21 10^6/uL (4.70-6.10); Red Cell Dist. Width 14.2 % (11.5-14.5); White Blood Cell Count 7.3 10^3/uL (4.8-10.8)
[2025-01-08 13:43] VITALS: BMI 35.4
[2025-01-08 13:59] LABS: Blood Urea Nitrogen 12 mg/dl (9-20); Calcium 9.5 mg/dl (8.4-10.2); Carbon Dioxide 27 mmol/L (22-30); Chloride 102 mmol/L (98-107); Estimated Creatinine Clearance 106 ml/min; Glucose 91 mg/dl (70-99); Potassium 5.1 mmol/L (3.5-5.1); Sodium 137 mmol/L (135-145); eGFR > 60.00
[2025-01-18] VITALS (11 sets, daily range): BP systolic 100–151; BP diastolic 65–86; BMI 35.4
[2025-01-18] MEDS: NORMOSOL-R/PLASMALYTE-A 1000 IV (09:00)
--- NOTE | 2025-01-18 11:31 | W.IMMPOSTOP ---
Surgical Immed Post Op Note
-
Primary Surgeon: Long
Pre-op Diagnosis:
1. BPH w/ OWEN
2. Urinary retention
3. Bladder stones
Post-op Diagnosis: Same
Procedure Performed: cystolitholapaxy, TURP
Anesthesia Type: LMA
Specimen / Cultures: Prostate chips/None
Estimated Blood Loss: 2 cc
Drains: 22Fr 3-way Calzada catheter (30 cc in balloon)
Complications: None
Operative Findings:
1. Elevated bladder neck w/ coapting/obstructing lateral lobes c/w OWEN - resected widely w/ patent prostatic urethral channel on final cysto.
2. Globally trabeculated bladder - small bladder stones evacuated via Urovac device and resectoscope.
3. No involvement of bilateral UOs/verumontanum/external urethral sphincter w/ margins of resection.
Spouse updated post-op in surgical waiting area.
Admit to [facility] for CBI s/p TURP.
[2025-01-18] MEDS: DETROL LA 4 MG PO (12:09)
[2025-01-18] MEDS: TYLENOL 650 MG PO (13:21)
--- NOTE | 2025-01-18 14:33 | CM ---
CM met with pt and spouse bedside
They reside in a 2[address] with 1 [address], full flight to 2nd floor
Pt has been sleeping in recliner one the 1st floor for the past few weeks due to the esqueda cath
he is indep with a SPC for use as needed, has a WW and walking sticks as well
Denies financial insecurities
PCP- Dena Callejas
rx- [facility]
Discharge Disposition- home, no needs anticipated
[2025-01-18] MEDS: XALATAN OPHTHALMIC SOLUTION 1 DROP BOTH EYES (16:59)
[2025-01-18] MEDS: TOPROL XL 25 MG PO (20:07)
[2025-01-18] MEDS: SYMBICORT 160/4.5 MCG INHALER 2 PUFF INH (20:51)
[2025-01-18] MEDS: INSPRA 50 MG PO (21:12)
[2025-01-18] MEDS: FLOMAX 0.4 MG PO (21:12)
[2025-01-18] MEDS: COZAAR 25 MG PO (21:12)
[2025-01-18] MEDS: CLARITIN 10 MG PO (21:13)
[2025-01-18] MEDS: PROSCAR 5 MG PO (21:13)
[2025-01-18] MEDS: SINGULAIR 10 MG PO (21:13)
[2025-01-19] MEDS: MOTRIN 800 MG PO (00:44)
[2025-01-19 07:00] VITALS: BP 128/76
[2025-01-19] MEDS: SYMBICORT 160/4.5 MCG INHALER 2 PUFF INH (07:47)
--- NOTE | 2025-01-19 07:47 | PTCARENOTE ---
Patient refusing scheduled lab work this AM reporting 'he's tired of getting stuck with needles.' Emotional support given. Insight provided to patient regarding importance of lab work after surgery. Patient continues to refuse lab work, verbalizes
that he accepts the risks of unknown labs.
[2025-01-19] MEDS: TOPROL XL 25 MG PO (08:46)
[2025-01-19] MEDS: VITAMIN C 500 MG PO (08:46)
[2025-01-19] MEDS: VITAMIN B-12 1000 MCG PO (08:46)
[2025-01-19] MEDS: VITAMIN D3 (cholecalciferol) 100 MCG PO (08:46)
[2025-01-19] MEDS: THERAGRAN 1 TABLET PO (08:47)
[2025-01-19] MEDS: ZINC 50 MG PO (08:47)
[2025-01-19] MEDS: B COMPLEX w/VITAMIN C 1 CAPLET PO (08:47)
[2025-01-19] MEDS: ZETIA 10 MG PO (08:47)
[2025-01-19] MEDS: Pyridium 200 MG PO (10:49)
--- NOTE | 2025-01-19 12:49 | W.DS.TRANS ---
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
-
Discharge Instructions:
Sleep Apnea Risk High
Discharge Diagnosis/Procedures BPH w/ urinary retention s/p TURP
Diet No restrictions
Activity No strenuous activity
Additional Activity No strenuous activity, heavy lifting, exercise,
or sexual activity x7 days after your surgery
Driving Restrictions No driving for 24 hours
Bathing Restrictions None
Blood Work n/a
Wound Care n/a
Instructions:
Stand-Alone Forms:
Changes to Home Medications: No
Discharge Medications:
DC Medications w/original date entered in [email or web address]
ascorbic acid (vitamin C) 500 mg tablet (Vitamin C) 500 mg PO DAILY Supplement 04/27/24
bimatoprost 0.01 % eye drops (Lumigan) 1 drp BOTH EYES HS Eye Condition 04/27/24
cholecalciferol (vitamin D3) 50 mcg (2,000 unit) tablet (Vitamin D3) 100 mcg PO DAILY Supplement 04/27/24
cyanocobalamin (vitamin B-12) 500 mcg tablet 1,000 mcg PO DAILY Supplement 04/27/24
eplerenone 25 mg tablet 50 mg PO HS Lung/Breathing Issues 04/27/24
ezetimibe 10 mg tablet 10 mg PO DAILY High Cholesterol 04/27/24
loratadine 10 mg tablet (Claritin) 10 mg PO HS Allergies 04/27/24
montelukast 10 mg tablet 10 mg PO HS ASTHMA 04/27/24
leoefwwn-pjy-jeiao acid 0.4 mg-lycopene 300 mcg-lutein 250 mcg tablet (Centrum Silver) 1 tab PO DAILY Supplement 04/27/24
saw palmetto 450 mg capsule 900 mg PO DAILY Supplement 04/27/24
vitamin B complex 1 tab PO DAILY Supplement 04/27/24
zinc sulfate 50 mg zinc (220 mg) tablet 50 mg PO DAILY Supplement 04/27/24
metoprolol succinate 25 mg tablet,extended release 24 hr 25 mg PO BID Heart disease/condition #60 tabs 05/06/24
aspirin 81 mg tablet 81 mg PO DAILY 01/11/25
bromelains 500 mg tablet 500 mg PO DAILY 01/11/25
finasteride 5 mg tablet 5 mg PO HS 01/11/25
fluticasone furoate 200 mcg-vilanterol 25 mcg/dose inhalation powder (Breo Ellipta) 1 inh inhalation DAILY 01/11/25
losartan 25 mg tablet (Cozaar) 25 mg PO HS 01/11/25
tamsulosin 0.4 mg capsule 0.4 mg PO HS 01/11/25
amoxicillin 500 mg-potassium clavulanate 125 mg tablet (Augmentin) 1 tab PO BID 5 days #10 tabs 01/19/25
phenazopyridine 200 mg tablet (Pyridium) 200 mg PO BID PRN dysuria 3 days #6 tabs 01/19/25
Home Medication Changes
Pending Results: Yes
Additional Pending Results:
surgical pathology
--- NOTE | 2025-01-19 12:49 | W.PN.URO.CBU ---
Today's Communication / Plan
-
D/c home this afternoon after voiding trial
eRx for Pyridium + Augmentin sent to pharmacy
F/U for post-op visit in 1 mo (office will call to schedule)
D/w RN.
D/w patient and spouse.
Assessment / Plan
-
BPH w/ urinary retention
Bladder stones
01/18: s/p cystolitholapaxy + TURP
Diagnosis
-
Date of Service: January 19, 2025
-
Patient Diagnosis:
BPH w/ urinary retention
Bladder stones
Post Op Day:
01/18: s/p cystolitholapaxy + TURP
Subjective
-
Calzada catheter removed 3 hrs ago - awaiting void.
Drinking generous PO fluids.
Denies pain or discomfort.
Objective
-
Vital Signs
Temp Pulse Resp BP Pulse Ox
97.9 F 64 16 128/76 97
01/19/25 07:00 01/19/25 07:53 01/19/25 07:53 01/19/25 07:00 01/19/25 07:53
Intake and Output
01/18/25 01/19/25 01/20/25
06:59 06:59 06:59
Intake Total 600 / 600
Output Total 1650 / 1650 1200 / 1200
Balance -1650 / -1650 -600 / -600
Intake:
Oral fluids 600 / 600
Output:
True Urine Output from [facility] 1650 / 1650 1200 / 1200
Laboratory Results
01/19/25 06:00
01/19/25 06:00
Physical Exam
-
General - well developed, well nourished, no acute distress
Abdomen - soft, non-tender
Genitalia - normal
Skin - warm & dry with no rash
Neuro - AOx3, no motor deficits
Extremities - no clubbing, no cyanosis, no edema
Care Review
Data Reviewed
Discussed with: Nursing and Family
Total Time Spent with Patient (in minutes): 30
--- NOTE | 2025-01-19 13:45 | CM ---
MD entered order for discharge.
Spoke with pt he said his Amanda will drive him home today.
Offered VN he declined need.
PLAN Home no needs
[2025-01-19 15:00] VITALS: BP 159/76
--- NOTE | 2025-01-19 16:54 | PTCARENOTE ---
voided 375ml orange urine. [id number]. Dr. Alves aware, wanted 18 or 20 Fr Coude catheter placed with outpatient follow up. 20Fr coude inserted, 850ml urine immediately out.
== END 2025-01-19 17:23 | disposition home or self-care (01) ==
LOC: SDS 06:21
PROVIDERS: ATTENDING PHYSICIAN Surgery; FAMILY PHYSICIAN Internal Medicine
DX: N40.1 Benign prostatic hyperplasia with lower urinary tract symptoms (principal); N13.8 Other obstructive and reflux uropathy; R33.8 Other retention of urine; N21.0 Calculus in bladder; N41.1 Chronic prostatitis; N42.0 Calculus of prostate
CPT/HCPCS: 52601; 52317; 88305; 36415; 80048; 85027; 94640

== ENCOUNTER → 2025-05-06 14:07 | Outpatient (REF) | payer MEDICARE, SELFPAY | LOC: RCS 14:07 | PROVIDERS: ATTENDING PHYSICIAN Internal Medicine Cardiovascular Disease; FAMILY PHYSICIAN Internal Medicine | DX: I25.10 Atherosclerotic heart disease of native coronary artery without angina pectoris (principal); I65.29 Occlusion and stenosis of unspecified carotid artery; Z95.1 Presence of aortocoronary bypass graft | CPT/HCPCS: 93306 ==

== ENCOUNTER 2025-08-21 01:45 | Inpatient (IN) | payer MEDICARE, SELFPAY ==
[2025-08-20 22:02] VITALS: BMI 39.7
[2025-08-20 22:22] VITALS: BP 161/97
[2025-08-20 22:56] LABS: Hematocrit 48.0 % (39.0-52.0); Hemoglobin 16.3 g/dL (13.0-18.0); Mean Corp Hgb Conc. 34.0 g/dL (33.0-37.0); Mean Corpuscular Volume 90.9 fL (80.0-94.0); Nucleated Red Blood Cells % 0 % (-); Platelet Count 249 10^3/uL (130-400); Red Cell Dist. Width 13.2 % (11.5-14.5)
[2025-08-20 23:10] LABS: Blood Urea Nitrogen 15 mg/dl (9-20); Calcium 9.3 mg/dl (8.4-10.2); Carbon Dioxide 28 mmol/L (22-30); Chloride 99 mmol/L (98-107); Glucose 116 mg/dl (70-99); Sodium 134 mmol/L (135-145); eGFR > 60.00
[2025-08-20 23:22] LABS: Troponin I 0.066 ng/ml
[2025-08-21] VITALS (13 sets, daily range): BP systolic 124–159; BP diastolic 72–100; BMI 39.3
--- NOTE | 2025-08-21 00:21 | ED.GENMED ---
History of Present Illness
General
Chief Complaint: Chest Pain
Source: patient and spouse
Time Seen by Provider: 08/21/25 00:13
History of Present Illness
History of Present Illness:
This patient is a 74-year-old male presents emergency department with complaints of mild 'sore' feeling in his upper to mid back that he noticed this morning. He recently used a rowing machine and thought it was likely related to that. Then,
around 8 PM, he noted that the pain got gradually and increasingly worse associated with several episodes of nonbloody vomiting. He also felt a little clammy and that it was 'harder to breathe'. Now, he describes the back pain as a 2 out of 10 in
intensity. It is not pleuritic. He denies associated chest pain, neck pain, headache, dizziness. He did feel bloated earlier today, but no longer. He denies new leg swelling, fever, chills, or other complaints. Patient notes that the last time
he had a cardiac event it presented with similar symptoms.
Past History
Past History
ED Past Medical History: CAD, HTN, Hypercholesterolemia and Other (AAS, sleep apnea A-fib)
ED Past Surgical History: Cardiac
Social History
Tobacco: Non-smoker
Alcohol: Occasional
Drug: None
Personal:
Living: with family
Phy Exam
Physical Exam
Physical Exam:
GENERAL: Alert , in no apparent distress
EYE: pupils equal and reactive, EOMI, no photophobia
NECK: Supple, no significant adenopathy.
ENT: o/p clr, mmm.
CARDIAC: Regular rate and rhythm, soft systolic murmur noted.
LUNGS: Clear breath sounds bilaterally, no acute respiratory distress, no wheezes/rales/rhonchi
ABDOMEN: Soft, without focal tenderness, no r/g, no cvat
NEUROLOGICAL: Alert and oriented, no focal neuro deficits
SKIN: Warm and dry, skin intact.
MUSCULOSKELETAL: No edema, well perfused.
PSYCH: Normal and appropriate interaction.
Scores
Heart Score for Chest Pain Patients
STEMI patient?: No
History: Moderately Suspicious
ECG: Normal
Age: >/= 65 years
Risk Factors: >/= 3 Risk Factors or History of CAD
Troponin: >1 - <3 x Normal Limit
Heart Score for Chest Pain Patients: 6
Heart Score Risk: 20.3% MACE over next 6 weeks
Course
Orders/Labs/Results
Orders:
Orders
08/20/25 22:03
Electrocardiogram (*1) Urgent
Reason for Study: Shortness of Breath
EKG- Treatment ONCE
08/20/25 22:28
Cardiac Monitoring- Treatment ONCE
IV Insert/Care/Rem.- Treatment PRN
CR Chest - 2 Views Urgent
Comment:
Reason For Exam: respiratory distress
O2 Therapy [RESP] Urgent
Titrate/Wean O2 to maintain O2 sat greater than (%): 93
Special Instructions: TO MAINTAIN CONTINUOUS O2 SATS >/= 93%
Pulse Ox/cont/shift [RESP] Urgent
Quantity: 1
Special Instructions: continuous pulse ox
08/20/25 22:44
Basic Metabolic Panel Urgent
Complete Blood Count/With Diff Urgent
NT-proBNP Urgent
Troponin I Urgent
08/21/25 00:[address] Non Medication Order As Directed
Physician Order: PTT 6 hours after initial start of Heparin infusion
Above order entered?: Yes
08/21/25 00:28
Aspirin Chewable [Low Strength Aspirin] 324 mg PO NOW STA
Nitroglycerin Sublingual [Nitrostat (Sublingual)] 0.4 mg SL [id number] PRN
08/21/25 00:30
Heparin 21485 Units/250 ml 25,000 units in 250 ml IV PER PROTOCOL
Weight to be used for heparin protocol in kilograms (kg):: 125.509
Protocol:: Cardiac Tx/Acute Coronary
PTT Goal Range to be used:: PTT 73 to 111 seconds
Order type:: Initial
INITIAL Infusion Dose (UNITS/KG/hr) & then follow protocol:: 12 units/kg/hr
Infusion Dose in UNITS/hr & then follow protocol (UNITS/hr):: 1,000
INFUSION RATE in mL/hr & then follow protocol (mL/hr):: 10
PTT less than or equal to 64 seconds:: Increase rate by 200 units/hr (+ 2 mL/hr)
PTT 64.1 to 72.9 seconds:: Increase rate by 100 units/hr (+ 1 mL/hr)
PTT 73 to 111 seconds:: Target Range. No change in rate.
PTT 111.1 to 130.9 seconds:: Decrease rate by 100 units/hr (- 1 mL/hr)
PTT 131 to 199.9 seconds:: HOLD for 1 hr. Then decrease rate by 200 units/hr (- 2 mL/hr)
PTT greater than or equal to 200 seconds:: HOLD for 2 hrs & Notify Provider. Then decrease by 200 units/hr (-
2 mL/hr)
Lab follow-up:: Each change, PTT q6h until 2 consecutive are therapeutic. Then PTT
daily.
08/21/25 00:45
PTT Urgent
Comment: Obtain baseline before beginning heparin infusion if not already collected
08/21/25 01:29
Admit/Transfer Patient As Directed
Co-Sign Provider:
Level of Care: Inpatient admission
Assign to:: Telemetry
Physician / Group: Aravind
Diagnosis: Chest pain
Reason for Telemetry: Chest Pain syndromes
Date to Stop Telemetry: 08/23/25
Time to Stop Telemetry: 11:00
Reason for Hospitalization: possible NSTEMI
Expected length of stay greater than two midnights?: Yes
ELOS- Estimated Length of Stay in days: 2
I certify the patient meets the requirements for IP care: Yes
08/21/25 01:30
PRN Pain Medication Management As Directed
May give lesser potent ordered pain med per pt: Yes
preference::
Protocol:: Medication orders for pain may be administered in a
manner that supports deferring to patient preference
when the pt is:
- Requesting an ordered lesser potent pain medication.
Least to most potent pain medications are defined
as: acetaminophen < NSAID < tramadol < opioids
(morphine, oxycodone, hydromorphone).
- Requesting a lesser dose of the same medication IF
ORDERED.
- Requesting a less intrusive route of administration
if both routes are prescribed by the provider (PO <
IV).
08/21/25 01:31
Code Status As Directed
Resuscitation Status: Full Code
08/21/25 02:07
Electrocardiogram (*1) Q3H
Reason for Study: Chest Pain
Comment: at admission and Q3H for total of 3, to be done with each troponin
Acetaminophen [Tylenol] 650 mg PO Q4HPRN PRN
Mag Hydrox/Al Hydrox/Simeth [Maalox] 30 ml PO Q4HPRN PRN
Ondansetron Injectable [Zofran] 4 mg IV Q6HPRN PRN
08/21/25 02:07
CARDIOLOGY CONSULT Routine
Consulting Provider: Zhang Interiano
Was physician already notified: No
Reason for consult: chest pain, acs, trop 0.066
Consult Notification Routine
Specialty to Notify: Cardiology
Date consulting provider notified: 08/21/25
Time consulting provider notified: 07:35
Notified:: Provider
Comment: r Sangrogoli via TT
VTE Contraindication Routine
VTE Mechanical Device Contraindication: Medical Contraindication
Pharmocologic Contraindication: Medical Contraindication
Heparin Protocol- PTT Orders As Directed
PTT per Heparin protocol: -Obtain CBC and baseline PTT - if not already collected.
-Obtain PTT 6 hours from start of infusion. Then, every 6 hours until 2 consecutive
PTT's are therapeutic. Then, PTT Daily.
-With each rate change, obtain PTT every 6 hours until 2 consecutive PTT's are
therapeutic. Then, PTT Daily.
Activity As Directed
Activity Level: With Assistance
ECG as needed As Directed
ECG as needed for:: Chest Pain
Additional Instructions:: with chest pain x 2 episodes.
INT (Intravenous Needle Therapy) As Directed
Comment: maintain peripheral IV access
Intake/ Output As Directed
Frequency: Per unit guidelines
Notify MD As Directed
Notify physician if: PTT is greater than or equal to 200.
Vital Signs As Directed
Frequency: q4h
Weight As Directed
Frequency: Daily
08/21/25 02:33
Troponin I Q3H
Comment: at admit & Q3H for 3 total including ED draws, obtain ECG with each level
08/21/25 05:07
Electrocardiogram (*1) Q3H
Reason for Study: Chest Pain
Comment: at admission and Q3H for total of 3, to be done with each troponin
08/21/25 05:34
Cardiovascular Evaluation IN AM
Comprehensive Metabolic Panel IN AM
Glycohemoglobin (HgbA1c) IN AM
Troponin I Q3H
Comment: at admit & Q3H for 3 total including ED draws, obtain ECG with each level
08/21/25 Breakfast
NPO
Allow oral meds: Yes
Allow clear liquids: Sips of Clears
08/21/25 07:08
PTT Urgent
08/21/25 08:00
Budesonide/Formoterol 160/4.5 [Symbicort 160/4.5 Mcg Inhaler] 2 puff INH R BID
Ezetimibe [Zetia] 10 mg PO DAILY
08/21/25 22:00
Eplerenone [Inspra] 50 mg PO HS
Finasteride [Proscar] 5 mg PO HS
Latanoprost [Xalatan Ophthalmic Solution] 1 drop BOTH EYES HS
Losartan [Cozaar] 25 mg PO HS
Montelukast Sodium [Singulair] 10 mg PO HS
Tamsulosin [Flomax] 0.4 mg PO HS
08/23/25 11:00
DC Protocol for Telemetry ONCE
Abnormal Lab Results
08/20/25 08/21/25
22:44 00:45
Abs Immat Gran (auto) 0.1 H 10^3/uL
(0-0.05)
Absolute Neuts (auto) 8.1 H 10^3/uL
(1.4-6.5)
Immature Gran % 0.7 H %
(0-0.5)
Neutrophils % 78.9 H %
(42.2-75.2)
Lymphocytes % 13.5 L %
(20.5-51.1)
APTT 41.6 H Sec
(23.4-35.0)
Sodium 134 L mmol/L
(135-145)
Glucose 116 H mg/dl
(70-99)
Troponin I 0.066 H* ng/ml
08/20/25 22:44
08/20/25 22:44
Vital Signs
Initial and Last Documented VS:
Initial Vital Signs
Temp Pulse Resp BP Pulse Ox
98.5 F 80 20 161/97 94
08/20/25 22:22 08/20/25 22:22 08/20/25 22:22 08/20/25 22:22 08/20/25 22:22
Last Documented Vital Signs
Temp Pulse Resp BP Pulse Ox
98.6 F 61 16 124/72 94
08/21/25 11:57 08/21/25 12:45 08/21/25 11:57 08/21/25 12:09 08/21/25 11:57
*Pulse Oximetry
SaO2: 94
Oxygen Mode of Delivery: Room air
Patient hypoxic: no
*Critical Care Note
Total Time (30-74mins, 75-104mins- exclusive of procedures): 30
Update Note
Update Note:
Patient presents to the Emergency Department with back pain, clammy, dyspnea, vomiting
Number and Complexity of Problems Addressed at the Encounter
� Chronic conditions affecting care:
� Acute Exacerbation and/or Progression of Chronic Illness:
� Differential Diagnosis includes: But not limited to STEMI, ACS, heart failure, dissection, PE, pericarditis, etc. etc.
Amount and/or Complexity of Data to be Reviewed and Analyzed
� I performed an independent evaluation of and my interpretation is:
EKG: Read by me, normal sinus rhythm, right bundle branch block, left axis deviation, no acute ischemia
CT:
Xrays: Chest x-ray read by me, mediastinum not widened, no acute disease noted
Laboratory Studies: CBC BMP generally unremarkable. Troponin noted to be elevated at 0.066
Other:
� Review of other/old records reveals: Notes from May 2024 hospitalization reviewed patient is status post ENRIQUEZ to LAD, SVG to OM and SVG to RPDA DA 04/29/2024.
� Clinical information was obtained by an independent historian: who is bedside
� Prescriptions/Medications Considered but not given:
� Further testing considered but not performed:
Risk of Complications and/or Morbidity or Mortality of Patient Management
� Social determinants of health affecting care:
� Discussion with other providers (PCP, Hospitalists, Consultants, etc):
� Escalation of care including admission/observation vs risk of discharge considered: Although ECG not suspicious for STEMI, symptoms are reminiscent of his prior acute coronary event, and troponin noted to be elevated. Patient
reports 2 out of 10 back pain which I am addressing as his anginal equivalent. Nitroglycerin and aspirin ordered, IV heparin to be ordered, will monitor closely.
12:57 AM status post nitroglycerin patient is now pain-free. He denies chest pain, back pain, or other symptoms. Heparin drip has been ordered, aspirin has been given, will monitor closely and admit overnight for continued treatment/evaluation.
Hospitalist aware
ED Attending Note
-
Portions of this chart may have been created with voice recognition software.� Occasional wrong word or��sound alike� substitutions may have occurred due to the inherent limitations of voice recognition software.
Discharge Plan
Departure
Patient Disposition: Admit
Date of Disposition: 08/21/25
Time of Disposition: 00:57
Presentation/result/management discussed w/ accepting MD/DO: Hospitalist
Condition: Fair
Discharge Problem:
ACS (acute coronary syndrome)
Interventions
Interventions:
*General Assessment Last Done: 08/20/25 22:22
*Neglect/Abuse Screening Last Done: 08/20/25 22:22
*ED COVID-19 Vaccine History Last Done: 08/20/25 22:22
*ED Influenza Vaccine History Last Done: 08/20/25 22:22
[facility] Fall Risk Assessment Tool Last Done: 08/21/25 01:00
*Risk Screen - Suicide (C-SSRS) Last Done: 08/20/25 22:22
*Nursing Disposition Last Done: 08/21/25 11:30
ED- Cardiac Assessment Last Done: 08/21/25 00:30
Discharge Date and Time
Discharge Date/Time: 08/21/25 11:30
[2025-08-21] MEDS: LOW STRENGTH ASPIRIN 324 MG PO (00:44)
[2025-08-21] MEDS: NITROSTAT (SUBLINGUAL) 0.4 MG SL (00:44)
[2025-08-21] MEDS: HEPARIN 25000 UNITS/250 ML IV (01:02)
--- NOTE | 2025-08-21 01:06 | HPS.HSE ---
Family Physician
-
Family Physician: NOT KNOW UNKNOWN - PT DOES
Chief Complaint
-
Chest pain
History of Present Illness
This is a 77-year-old male with past medical history significant for CAD status post CABG in April 2024 complicated by postop atrial fibrillation now off anticoagulation, hypertension, hyperlipidemia, nephrolithiasis, asthma, BPH status post TURP
who presented to the emergency department with chest pain.
Patient reports onset of chest pain earlier in the day. He reported that he exercised 2 days prior and developed soreness in his back which was typical for his exercise. However he started having pain that was radiating from his back towards the
left chest and into the abdomen as well as having some chest tightness. He walked up a flight of stairs at around 8 PM and vomited 4 times. He then became diaphoretic. He related concerns to his who recommended that he comes to the emergency
department for evaluation. It is unclear how long the symptoms lasted but it was over 1 hour. He is currently chest pain-free denies having back pain and denies any nausea or vomiting. He denies recent exertional chest pain, exertional dyspnea,
lower extremity swelling. Denies any palpitations lightheadedness or dizziness. He denies having any cough fevers or chills.
In the emergency department patient was afebrile, blood pressure was 140/100 with a pulse of 75 and open saturation of 94% on room air. ECG shows a normal sinus rhythm at a rate of 75 with a right bundle and a new left anterior fascicular block.
Chest x-ray was unremarkable. Troponin was elevated at 0.066. CBC was unremarkable stop electrolytes BUN and creatinine were all in a normal range. Glucose was normal.
Medical History
Past Medical History
Past Medical History: Reports Other
Additional Past Medical History:
Essential Hypertension
Hyperlipidemia
Cough Variant Asthma
Obstructive Sleep Apnea
Morbid Obesity due to Excess Calories
Past Surgical History: Reports None and Urological (Status post TURP, cystolitholopaxy)
Social History
Tobacco: Former Smoker (Quit at age 20)
Alcohol: Daily (Wine most nights)
Drug: None
Family History
Family History: Not pertinent
Allergies / Home Medications
Allergies reflects when Allergies were last updated in [employer].
Home Medications with original date entered in [employer]
Allergy/Medication List:
Allergies
Allergy/AdvReac Type Severity Reaction Status Date / Time
.statins Allergy Unknown Uncoded 04/27/24 10:25
Home Medications
ascorbic acid (vitamin C) 500 mg tablet (Vitamin C) 500 mg PO DAILY 04/27/24
aspirin 325 mg tablet 325 mg PO DAILY 04/27/24
bimatoprost 0.01 % eye drops (Lumigan) 1 drp BOTH EYES HS 04/27/24
cholecalciferol (vitamin D3) 50 mcg (2,000 unit) tablet (Vitamin D3) 100 mcg PO DAILY 04/27/24
cyanocobalamin (vitamin B-12) 500 mcg tablet 500 mcg PO DAILY 04/27/24
doxazosin 4 mg tablet 4 mg PO HS 04/27/24
eplerenone 25 mg tablet 75 mg PO HS 04/27/24
ezetimibe 10 mg tablet 10 mg PO DAILY 04/27/24
fluticasone furoate 200 mcg-vilanterol 25 mcg/dose inhalation powder (Breo Ellipta) 1 inh inhalation R DAILY 04/27/24
loratadine 10 mg tablet (Claritin) 10 mg PO HS 04/27/24
losartan 25 mg tablet 25 mg PO HS 04/27/24
montelukast 10 mg tablet 10 mg PO HS 04/27/24
exyedqfs-jaj-veuka acid 0.4 mg-lycopene 300 mcg-lutein 250 mcg tablet (Centrum Silver) 1 tab PO DAILY 04/27/24
saw palmetto 450 mg capsule 900 mg PO DAILY 04/27/24
vitamin B complex 1 tab PO DAILY 04/27/24
zinc sulfate 50 mg zinc (220 mg) tablet 50 mg PO DAILY 04/27/24
Review of Systems
-
Constitutional: Reports No Symptoms
EENT: Reports No Symptoms
Respiratory: Reports No Symptoms
Cardiac: Reports Chest Pain
Abdomen/GI: Reports No Symptoms
: Reports No Symptoms
Musculoskeletal: Reports No Symptoms
Skin: Reports No Symptoms
Neurological: Reports No Symptoms
Endocrine: Reports No Symptoms
Hematologic/Lymphatic: Reports No Symptoms
Psych: Reports No Symptoms
Physical Exam
Vital Signs
Vital Signs
Temp Pulse Resp BP Pulse Ox
98.5 F 75 9 139/100 94
08/20/25 22:22 08/21/25 00:45 08/21/25 00:45 08/21/25 00:44 08/21/25 00:45
Physical Exam
General: Comfortable, Conversant and Obese
HEENT: Anicteric and Moist mucous membranes
Respiratory: Clear and Non Labored Respirations
Cardiac: S1/S2 and Regular Rhythm
GI: Soft and Non Tender
Rectal: Deferred by Provider
Musculoskeletal: No Clubbing, No Cyanosis and Other (Trace pitting edema bilateral lower extremity)
Skin: Warm and Dry
Neuro: Awake, Alert, Oriented and Nonfocal/grossly intact
Psych: Calm
Laboratory Results
-
08/20/25 22:44
08/20/25 22:44
Laboratory Results
Total Bilirubin Cancelled 08/20/25 22:44
AST Cancelled 08/20/25 22:44
ALT Cancelled 08/20/25 22:44
Alkaline Phosphatase Cancelled 08/20/25 22:44
Troponin I 0.066 ng/ml H* 08/20/25 22:44
Data Reviewed
-
Diagnostic Radiology: Image Personally Visualized and interpreted
Medical Tests (Nuc Med, Echo, EKG etc): Image Personally Visualized and interpreted
Old Records: Reviewed
Impression/Plan
-
IMPRESSION:
74-year-old with past medical history of CAD status post triple-vessel CABG, hypertension, hyperlipidemia currently on Repatha, BPH status post TURP who presents to the emergency department with bilateral shoulder/back pain radiating to the front
and concerning for ACS given associated nausea vomiting and diaphoresis. He is currently asymptomatic but initial troponin was elevated to 0.066. ECG is nonischemic with known right bundle and a anterior fascicular block. Rhythm is normal. His
labs are otherwise unremarkable.
PLAN:
Chest pain -given risk factors, elevated troponin concern for ACS/NSTEMI, currently chest pain-free.
� Admit to telemetry
� Status post aspirin and sublingual nitroglycerin
� Heparin drip started
� Will keep n.p.o. for now
� Cardiology consult
� Continue ASA Cozaar and eplerenone
BPH
� Continue tamsulosin and finasteride
Asthma
-Continue montelukast, Breo and as needed albuterol
DVT prophylaxis�on heparin drip
CODE STATUS�full code
[2025-08-21 01:09] LABS: APTT 41.6 Sec (23.4-35.0)
[2025-08-21 03:36] LABS: Troponin I 0.063 ng/ml
[2025-08-21 06:08] LABS: ALT (SGPT) 25 U/L (0-50); AST (SGOT) 28 U/L (17-59); Albumin 4.1 g/dl (3.5-5.0); Alkaline Phosphatase 63 U/L (38-126); Blood Urea Nitrogen 14 mg/dl (9-20); Calcium 9.0 mg/dl (8.4-10.2); Carbon Dioxide 26 mmol/L (22-30); Chloride 100 mmol/L (98-107); Estimated Creatinine Clearance 106 ml/min; Glucose 113 mg/dl (70-99); HDL Cholesterol 55 mg/dl; LDL Cholesterol, Calculated 66 mg/dl; Potassium 4.6 mmol/L (3.5-5.1); Sodium 132 mmol/L (135-145); Total Protein 6.9 g/dl (6.3-8.2); Very Low Density Lipoprotein 20 mg/dl (0-30); eGFR > 60.00
[2025-08-21 06:14] LABS: Troponin I 0.060 ng/ml
[2025-08-21 08:12] LABS: APTT 50.1 Sec (23.4-35.0)
[2025-08-21] MEDS: SYMBICORT 160/4.5 MCG INHALER 2 PUFF INH (08:17)
[2025-08-21] MEDS: ZETIA 10 MG PO (09:24)
--- NOTE | 2025-08-21 09:30 | CON.CAR ---
Addendum entered and electronically signed by Fausto Loera MD 08/21/25 11:27:
Patient seen, interviewed and examined by me.
Well-appearing, no acute distress
Regular rate and rhythm with normal S1 and S2, no S3 no S4. There is a grade 1/6 apical holosystolic murmur and no rubs. PMI is normally placed.
Lungs are clear to auscultation bilaterally without wheezes rales or rhonchi.
Abdomen soft nontender nondistended with normoactive bowel sounds
Extremities show trace pretibial edema bilaterally no clubbing or cyanosis.
Neurologic exam is grossly nonfocal.
Agree with advanced practice professionals assessment and plan as noted below.
His presenting symptoms are unlikely to represent unstable coronary syndrome given stable ECG and troponin values of 0.066, 0.063, 0.060. Additionally he remains symptom-free.
From a cardiology standpoint he can be discharged at any time.
He will need to be seen as an outpatient in cardiology and at that point there can be discussion regarding consideration for ischemic evaluation.
I have discussed this with the patient in detail. All of his questions have been answered.
Will sign off, please give us a callback if we can be of further assistance
Original Note:
Consultation
Consultation Request
Date/Time Consultation Requested: 08/21/2025
Date/Time Consultation Performed: 08/21/2025
Requesting Provider: Dr. Nazario
Performing Provider: Elaine Khan PA-C for Dr. Tejas Loera
Reason for Consultation: Chest pain, elevated troponin
Medical History
-
History of Present Illness:
HPI: Naveen is a 74 year old male with PMH of CAD s/p CABG x 3 04/2024, paroxysmal atrial tachycardia, HTN, HLD, , and ASUNCION who presented to [facility] ER for evaluation after episode of back pain, nausea, and vomiting. He states he has been working on
exercising more regularly on the treadmill, rowing machine, and with weight lifting and has noted that typically 2 days after he exercises, he will have some soreness. He noted back pain which he initially attributed to soreness from exercising, but
then he became nauseous and vomited x 5 on 08/20. He states the back pain then started to radiate along his ribcage into his chest, and family recommended ER evaluation. When he had CABG in 2023, he notes his anginal equivalent was underarm pain.
Pain yesterday felt similar, but rather than being under his arms, was more along ribcage. He had some SOB associated with these symptoms. On arrival to ER, he was given 324 mg of aspirin as well as SL nitro and his symptoms have essentially
resolved. He feels well currently sitting on stretcher. Labwork in ER revealed mildly elevated troponin of 0.066, trending down thereafter. He was started on IV heparin and admitted for further workup and evaluation. Cardiology consulted for
evaluation. He denies chest pain, palpitations, dizziness, lightheadedness, or SOB currently. Has been noting some increased LE edema.
PMH:
CAD
multivessel CAD by cath 04/28/24
s/p CABG with ENRIQUEZ to LAD, SVG to OM and SVG to RPDA 04/29/24
Paroxysmal atrial tachycardia/atrial fibrillation
Not on OAC as no recurrences noted
HTN
HLD, on Repatha due to statin intolerance
Mild by echo 06/2022
Morbid obese
cRBBB
LAFB
Sleep apnea
Past Medical History
Past Medical History: Other (in HPI)
Past Surgical History: Cardiac (CABG x 3 04/2024) and Other (TURP 12/2024)
Social History
Tobacco: Former Smoker
Alcohol: None
Drug: None
Personal:
Living: With Family
Employment: Retired
Family History
Family History: CAD and Hypertension
Allergies / Home Medications
Allergy/AdvReac Type Severity Reaction Status Date / Time
cyclobenzaprine (From Allergy 'collasped' Verified 08/20/25 22:22
Flexeril)
[id number] Reductase Allergy Lethargy, Verified 08/20/25 22:22
Inhibitor Issues
with
mobility,
and Pain
�Medication �Instructions �Recorded �Confirmed �Type
ascorbic acid (vitamin C) 500 mg 500 mg PO DAILY Supplement 04/27/24 01/18/25 History
tablet (Vitamin C)
bimatoprost 0.01 % eye drops 1 drp BOTH EYES HS Eye Condition 04/27/24 01/18/25 History
(Lumigan)
cholecalciferol (vitamin D3) 50 100 mcg PO DAILY Supplement 04/27/24 01/18/25 History
mcg (2,000 unit) tablet (Vitamin
D3)
cyanocobalamin (vitamin B-12) 500 1,000 mcg PO DAILY Supplement 04/27/24 01/18/25 History
mcg tablet
eplerenone 25 mg tablet 50 mg PO HS Lung/Breathing Issues 04/27/24 01/18/25 History
ezetimibe 10 mg tablet 10 mg PO DAILY High Cholesterol 04/27/24 01/18/25 History
loratadine 10 mg tablet (Claritin) 10 mg PO HS Allergies 04/27/24 01/18/25 History
montelukast 10 mg tablet 10 mg PO HS ASTHMA 04/27/24 01/18/25 History
tnhrbykg-hpe-ubgyi acid 0.4 1 tab PO DAILY Supplement 04/27/24 01/18/25 History
mg-lycopene 300 mcg-lutein 250 mcg
tablet (Centrum Silver)
saw palmetto 450 mg capsule 900 mg PO DAILY Supplement 04/27/24 01/18/25 History
vitamin B complex 1 tab PO DAILY Supplement 04/27/24 01/18/25 History
zinc sulfate 50 mg zinc (220 mg) 50 mg PO DAILY Supplement 04/27/24 01/18/25 History
tablet
metoprolol succinate 25 mg 25 mg PO BID Heart 05/06/24 01/18/25 Rx
tablet,extended release 24 hr disease/condition #60 tabs
aspirin 81 mg tablet 81 mg PO DAILY 01/11/25 01/18/25 History
bromelains 500 mg tablet 500 mg PO DAILY 01/11/25 01/18/25 History
finasteride 5 mg tablet 5 mg PO HS 01/11/25 01/18/25 History
fluticasone furoate 200 1 inh inhalation DAILY 01/11/25 01/18/25 History
mcg-vilanterol 25 mcg/dose
inhalation powder (Breo Ellipta)
losartan 25 mg tablet (Cozaar) 25 mg PO HS 01/11/25 01/18/25 History
tamsulosin 0.4 mg capsule 0.4 mg PO HS 01/11/25 01/18/25 History
amoxicillin 500 mg-potassium 1 tab PO BID 5 days #10 tabs 01/19/25 Rx
clavulanate 125 mg tablet
(Augmentin)
phenazopyridine 200 mg tablet 200 mg PO BID PRN dysuria 3 days 01/19/25 Rx
(Pyridium) #6 tabs
Review of Systems
-
History Source: Patient
All other systems: Negative unless noted
Physical Exam
Vital Signs
Temp Pulse Resp BP Pulse Ox
98.5 F 63 15 146/87 93
08/20/25 22:22 08/21/25 08:18 08/21/25 08:18 08/21/25 06:00 08/21/25 08:18
Lab Results
08/20/25 22:44
08/21/25 05:34
Troponin I Cancelled 08/21/25 08:07
Mje-S-Zrjlaitfohg Pept 155 pg/ml 08/20/25 22:44
Physical Exam
General: Well Developed, Well Nourished and No Apparent Distress
HEENT: Normocephalic, Anicteric and Moist Mucous Membranes
Respiratory: Clear and Non Labored Respirations
Cardiac: S1/S2, Regular Rhythm and Murmur
Musculoskeletal: No Clubbing, No Cyanosis and Edema
Skin: Warm and Dry
Neuro: AO x 3 and Nonfocal/Grossly Intact
Psych: Calm
Impression / Plan
-
PCP: Dr. Guy
Extension Course Counselor: Dr. CARLITO Lomax
Nephrology: Dr. Lees
Impression:
Presented with back pain, nausea, vomiting
Chest pain
Elevated troponin
CAD
multivessel CAD by cath 04/28/24
s/p CABG with ENRIQUEZ to LAD, SVG to OM and SVG to RPDA 04/29/24
Paroxysmal atrial tachycardia/atrial fibrillation
Not on OAC as no recurrences noted
HTN
HLD, on Repatha due to statin intolerance
Mild by echo 06/2022
Morbid obese
cRBBB
LAFB
Sleep apnea
Echo 06/22/2022: EF 70-75%, mild conc LVH, mild peak/mean 20/10 mmHg and NICKY 2.0 cm sq
Echo 04/27/2024: EF 65 to 70%, moderate concentric LVH, mild with peak/mean 16/10 mmHg and NICKY 1.7 cm sq, no aortic insufficiency
Echo 05/06/2025: EF 60%, mild LVH, mild with peak/mean gradients 30/17 mmHg, trace MR
Plan:
-Presented with back pain w/ radiation into chest as well as nausea, diaphoresis, and vomiting.
-Chest xray unremarkable.
-EKG SR with RBBB, stable compared to prior.
-Found to have elevated troponin of 0.066, trending down thereafter.
-Symptoms feel similar to prior angina. Has h/o CABG x 3 in 04/2024. Has been compliant with aspirin.
-Agree w/ IV heparin for now. S/p aspirin 324mg in ER as well as SL nitro. Symptoms resolved at this time.
-Consider checking limited echo to assess EF, wall motion. Recent echo 05/2025 with preserved EF and mild as noted above.
-Follow symptoms for now. To consider OP stress testing versus inpatient ischemic eval.
-Continue eplerenone, losartan. BP elevated, however he reports he did not take his usual PM medications yesterday as he was coming to ER.
-Continue zetia, repatha for cholesterol control. LDL 66.
-Hgb A1c pending.
HPI: Naveen is a 74 year old male with PMH of CAD s/p CABG x 3 04/2024, paroxysmal atrial tachycardia, HTN, HLD, , and ASUNCION who presented to [facility] ER for evaluation after episode of back pain, nausea, and vomiting. He states he has been working on
exercising more regularly on the treadmill, rowing machine, and with weight lifting and has noted that typically 2 days after he exercises, he will have some soreness. He noted back pain which he initially attributed to soreness from exercising, but
then he became nauseous and vomited x 5 on 08/20. He states the back pain then started to radiate along his ribcage into his chest, and family recommended ER evaluation. When he had CABG in 2023, he notes his anginal equivalent was underarm pain.
Pain yesterday felt similar, but rather than being under his arms, was more along ribcage. He had some SOB associated with these symptoms. On arrival to ER, he was given 324 mg of aspirin as well as SL nitro and his symptoms have essentially
resolved. He feels well currently sitting on stretcher. Labwork in ER revealed mildly elevated troponin of 0.066, trending down thereafter. He was started on IV heparin and admitted for further workup and evaluation. Cardiology consulted for
evaluation. He denies chest pain, palpitations, dizziness, lightheadedness, or SOB currently. Has been noting some increased LE edema.
Data Reviewed
-
EKG: Tracing Personally Visualized and interpreted
Radiology: Report Reviewed by me
Labs: Labs Reviewed by me
Old Records: Reviewed
--- NOTE | 2025-08-21 12:28 | W.DCSUMMARY ---
Discharge Summary
Discharge Data
Date of Admission: 08/21/25
Date of Discharge: 08/21/25
-
Pending Results: No
Hospital Course
77-year-old male with past medical history significant for CAD status post CABG in April 2024 complicated by postop atrial fibrillation now off anticoagulation, hypertension, hyperlipidemia, nephrolithiasis, asthma, BPH status post TURP
Presented with chest discomfort. Found to have elevated troponins. Per cardiology EKG not consistent with unstable coronary syndrome. At this time recommending discharge home. Outpatient follow-up regarding consideration of ischemic evaluation.
Seen and examined on the day of discharge which was 08/21/2025. No new complaints no acute overnight events
NAD
Scleral Anicteric
MMM
No JVD
CTABL
RRR, S1/S2
Soft, NT, ND, BS+
Warm, Dry
AAOx3
Calm
More than 30 minutes spent in discharge including
Final examination of the patient
Summarizing hospital stay
Instructions for continuing care to all relevant caregivers
Preparation of discharge records, prescriptions, and referral forms
Total time spent (in minutes): 33mins
Discharge Plan
-
Patient Disposition: Home (Routine Discharge)
Discharge Diagnosis/Procedures: chest pain
Condition: Fair
Diet: As tolerated
Activity: As tolerated
Activity Restrictions/Additional Instructions:
Presented with chest discomfort. Found to have elevated troponins. Per cardiology EKG not consistent with unstable coronary syndrome. At this time recommending discharge home. Outpatient follow-up regarding consideration of ischemic evaluation.
Referrals:
Melisa Wiggins PA-C [Specified Professional Personl, Cardiology] - 09/06/25 7:40 am
Referral Note: You have a follow up visit with Dr. Lomax's PA, Melisa Wiggins, at the [place] office. Please call with questions.
UNKNOWN - PT DOES,NOT KNOW [Family Provider]
Prescriptions:
Continued
zinc sulfate 50 mg zinc (220 mg) Tablet
50 mg PO DAILY
cyanocobalamin (vitamin B-12) 500 mcg Tablet
1,000 mcg PO DAILY
ascorbic acid (vitamin C) [Vitamin C] 500 mg Tablet
500 mg PO DAILY
vitamin B complex Tablet
1 tab PO DAILY
montelukast 10 mg Tablet
10 mg PO HS
loratadine [Claritin] 10 mg Tablet
10 mg PO HS
eplerenone 25 mg Tablet
50 mg PO HS
ezetimibe 10 mg Tablet
10 mg PO DAILY
Centrum Silver 0.4 mg-300 mcg- 250 mcg Tablet
1 tab PO DAILY
saw palmetto 450 mg Capsule
900 mg PO DAILY
cholecalciferol (vitamin D3) [Vitamin D3] 50 mcg (2,000 unit) Tablet
100 mcg PO DAILY
Lumigan 0.01 % Drops
1 drp BOTH EYES HS
metoprolol succinate 25 mg Tablet Extended Release 24 Hr
25 mg PO BID Qty: 60 1RF
tamsulosin 0.4 mg Capsule
0.4 mg PO HS
losartan [Cozaar] 25 mg Tablet
25 mg PO HS
aspirin 81 mg Tablet
81 mg PO DAILY
finasteride 5 mg Tablet
5 mg PO HS
fluticasone furoate-vilanterol [Breo Ellipta] 200-25 mcg/dose Blister With Device
1 inh INHALATION DAILY
phenazopyridine [Pyridium] 200 mg tablet
200 mg PO BID PRN (Reason: dysuria) 3 Days Qty: 6 0RF
Discontinued
bromelains 500 mg Tablet
500 mg PO DAILY
amoxicillin-pot clavulanate [Augmentin] 500-125 mg tablet
1 tab PO BID 5 Days Qty: 10 0RF
Discharge Orders:
Discharge Patient (As Directed); Ordered 08/21/25
Ordered By: Tyrell Zacarias
Discharge Date and Time
Print Language: SERBIAN
--- NOTE | 2025-08-21 12:58 | PTCARENOTE ---
PT arrived to IVU at 1205, A,A+OX3, denies pain, VSS, vital signs downloaded with most recent BP plus ED VS that had not previously been downloaded. Pt states on arrival that Dr Loera said he could go home, the Pt does not know why he couldn't
just be discharged from the ED. It was explained to Pt that he was admitted to the hospitalist service, Pt insists that he would like to be discharged, he does not want to stay in the hospital since he was told he could go home. Dr Tyrell Zacarias
notified and came to see Pt, Pt then discharged. discharge instructions reviwed with Pt and his , they expressed understanding.
[2025-08-21 13:51] LABS: Glycohemoglobin (HgbA1c) 6.0 % (4.0-5.9)
== END 2025-08-21 12:50 | disposition home or self-care (01) | DRG 313 ==
LOC: IVU 01:45
PROVIDERS: ADMITTING PHYSICIAN Internal Medicine; ATTENDING PHYSICIAN Hospitalist; EMERGENCY PHYSICIAN Emergency Medicine; OTHER PHYSICIAN Internal Medicine Cardiovascular Disease
DX: R07.9 Chest pain, unspecified (principal); Z87.891 Personal history of nicotine dependence; N40.0 Benign prostatic hyperplasia without lower urinary tract symptoms; E66.01 Morbid (severe) obesity due to excess calories; Z68.39 Body mass index [BMI] 39.0-39.9, adult; Z79.82 Long term (current) use of aspirin; Z79.899 Other long term (current) drug therapy
CPT/HCPCS: 71046; 80048; 80053; 80061; 83036; 83880; 84484; 85025; 85730; 93005; 94640; 96365; 96366; 99291